=== PATIENT | female | born 1930 | race Caucasian/White ===

== ENCOUNTER 2017-10-20 12:54 | Outpatient (CLI) | payer MEDICARE | END 2017-10-20 12:55 | disposition home or self-care (01) | LOC: BICRAD 12:54 | PROVIDERS: ATTEND Internal Medicine | DX: T17.910A Gastric contents in respiratory tract, part unspecified causing asphyxiation, initial encounter (principal); J98.4 Other disorders of lung | CPT/HCPCS: 71020 ==

== ENCOUNTER 2017-10-30 09:09 | Outpatient (CLI) | payer MEDICARE ==
--- NOTE | 2017-10-30 14:21 | CT ---
CT ABDOMEN AND PELVIS WITH ORAL AND IV CONTRAST: HISTORY: Malignant neoplasm of the transverse colon. FINDINGS: There is a 1.4 cm low density lesion at the anterolateral aspect of the spleen. A calcified granulom a is also seen in the spleen. The liver, pancreas, adrenal glands, and kidneys are unremarkable. Th e patient is post cholecystectomy and hysterectomy. No free air, free fluid, or lymphadenopathy is seen in the abdomen or pelvis. No periaortic lymphade nopathy is seen. There are vascular calcifications without evidence of aneurysmal dilatation of the abdominal aorta. There are degenerative changes in the spine. The small bowel loops are not abnormally dilated. There is sigmoid diverticulosis. There is a mass in the hepatic flexure. Prominent lymph nodes, measuring up to 1 cm, are seen medial to the hepatic flexure. A small hiatal hernia is present. IMPRESSION: 1. Findings suspicious for malignancy in the hepatic flexure of the colon with adjacent lymphadenopa thy. 2. Sigmoid diverticulosis. 3. Small hiatal hernia. 4. A 1.4 cm low density lesion in the spleen. POS: [facility]
== END 2017-10-30 09:10 | disposition home or self-care (01) ==
LOC: CT 09:09
PROVIDERS: ATTEND Specialist
DX: C18.4 Malignant neoplasm of transverse colon (principal); R59.0 Localized enlarged lymph nodes; K44.9 Diaphragmatic hernia without obstruction or gangrene; K57.30 Diverticulosis of large intestine without perforation or abscess without bleeding; D73.89 Other diseases of spleen
CPT/HCPCS: 74177

== ENCOUNTER 2017-11-10 09:18 | Inpatient (IN) | payer MEDICARE ==
[2017-11-10] MEDS ORDERED: Fentanyl 100 MCG/2 ML VIAL ONE ×2 (09:53→10:24)
[2017-11-10] MEDS ORDERED: Dexamethasone 4 mg/ml Vial ONE (09:53)
[2017-11-10] MEDS ORDERED: Midazolam HCl 2 mg/2 ml Vial ONE (09:53)
[2017-11-10] MEDS ORDERED: Albumin 5% 500 ML ONE (10:24)
[2017-11-10] MEDS ORDERED: Ketamine 50 MG/ML VIAL ONE (10:24)
[2017-11-10] MEDS ORDERED: Phenylephrine 10 MG/NS 250 ML 0 ML ONE (10:24)
[2017-11-10] MEDS ORDERED: Propofol 500 MG/50 ML VIAL ONE (10:25)
[2017-11-10] MEDS ORDERED: Propofol 1,000 MG/100 ML VIAL IV ONE (10:25)
[2017-11-10] MEDS ORDERED: CEFAZOLIN/Water 2 GM/20 ML SYRINGE ONE (10:32)
[2017-11-10] MEDS ORDERED: Ketorolac Tromethamine 30 MG/ML VIAL ONE (10:32)
[2017-11-10 10:36] LABS: Hemoglobin A1c 4.7 % (4.0-6.0)
[2017-11-10 10:42] LABS: Anion Gap 16 mmol/L (10-20); BUN (Urea Nitrogen) 23 mg/dL (9.8-20.1); Calc. Creatinine Clearance 43 mL/min (70-130); Calcium 9.7 mg/dL (7.8-10.44); Carbon Dioxide 23 mmol/L (23-31); Chloride 106 mmol/L (98-107); Estimated GFR-MDRD 41; Glucose 91 mg/dL (83-110); Potassium 4.1 mmol/L (3.5-5.1); Sodium 141 mmol/L (136-145)
[2017-11-10 10:48] LABS: Anisocytosis MODERATE=16-30 cells (100X) (0-5/hpf); Hypochromia MODERATE=16-30 cells (100X) (0-5/hpf); MDiff Complete? YES; Polychromasia SLIGHT = 2-3 cells (100X) (0-2/hpf)
[2017-11-10 10:49] LABS: #Eosinphils 0.3 thou/uL (0.0-0.7); #Lymphocytes 2.1 thou/uL (1.20-3.40); #Monocytes 0.6 thou/uL (0.11-0.59); %Basophils 0.6 % (0.0-1.0); %Eosinophils 5.4 % (0.0-10.0); %Lymphocytes 34.4 % (21.0-51.0); %Monocytes 10.2 % (0.0-10.0); %Neutrophils 49.4 % (42.0-75.0); Hemoglobin 9.2 g/dL (12.0-16.0); Mean Corpuscular HGB CONC 30.2 g/dL (32.0-36.0); Mean Corpuscular Hemoglobin 25.8 pg (27.0-31.0); Mean Corpuscular Volume 85.3 fl (81.0-99.0); Mean Platelet Volume 7.9 fL (7.4-10.4); Platelet Count 424 thou/uL (130-400); RBC Distribution Width 23.2 % (11.5-14.5); Red Blood Cell (RBC) Count 3.56 mill/uL (4.20-5.40); White Blood Cell (WBC) Count 6.1 thou/uL (4.8-10.8)
[2017-11-10] MEDS ORDERED: Lidocaine 1% w/Epinephrine 1:200K 30 ML VIAL ONE (10:51)
--- NOTE | 2017-11-10 11:12 | RAD ---
PA AND LATERAL CHEST: Indication: Pre-operative examination. Comparison: None. FINDINGS: Lungs are clear. Cardiomediastinal silhouette is within normal limits. There are cholecystectomy clip s within the right upper quadrant. There is multilevel spondylosis of the thoracic spine. There are m ild vascular calcifications involving a tortuous aorta. IMPRESSION: No acute cardiopulmonary process. POS: [facility]
[2017-11-10] MEDS ORDERED: Ondansetron HCl/PF 4 MG/2 ML Vial IVP PRN (12:30)
[2017-11-10] MEDS ORDERED: Promethazine HCl 25 MG/ML VIAL SLOW IVP PRN (12:30)
[2017-11-10] MEDS ORDERED: Promethazine HCl 25 MG/ML VIAL IM PRN (12:30)
[2017-11-10] MEDS ORDERED: D5 1/2 NS w/20 mEq KCL 1,000 ML ONE (13:53)
--- NOTE | 2017-11-10 14:20 | OP ---
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 OPERATION PERFORMED: Hand-assisted laparoscopic extended right hemicolectomy. SURGEON: Alton Childress M.D. ANESTHESIA: General endotracheal per Allen Aquino CRNA. INDICATIONS: The patient is an 87-year-old white female. Recent diagnosis of anemia prompted endosc opy which revealed a fungating near obstructing mass at the hepatic flexure and the proximal transver se colon. Preoperative CEA level is elevated at 25. CT scan documents a bulky tumor at the hepatic flexure with evidence of spread to surrounding mesenteric lymph nodes. There is no evidence of dista nce metastatic spread. She was taken to the operating room at this time for colectomy. DESCRIPTION OF OPERATION: Informed consent was obtained. The patient was taken to the operating vanessa m where general endotracheal anesthesia was obtained with the patient in supine position. Abdomen wa s prepped with ChloraPrep and draped in sterile fashion. Luu catheter was placed before prepping. Anesthesia had also placed a tap block in the day stay area. Using 1% lidocaine with epinephrine, local anesthetic was infiltrated and 5 mm left upper quadrant in cision was created through which a Veress needle was passed into the peritoneal cavity and pneumoperi toneum established using carbon dioxide up to a pressure of 15 mmHg. A 5 mm trocar port was passed t hrough this same incision. Laparoscopic camera was passed through this port. Under direct vision, a second 5 mm left lower quadrant port was placed. Using these ports, I identified the areas of malig jaja at the hepatic flexure and selected an appropriate extraction site in the right upper quadrant. An oblique 8 cm right upper quadrant incision was created and dissection was carried through skin a nd subcutaneous tissue. Muscle splitting was used to gain access into the abdominal cavity. GelPort was assembled over the Bob wound retractor. The operation was continued using hand assistance. I initially tented the cecum and identified the ileocolic vessels. These were dissected and divided carefully using LigaSure. Retroperitoneal dissection was carried out laterally to the lateral abdomi nal wall. Dissection was then carried superiorly. I selected an area of approximately the mid trans verse colon. It was at least 10 cm distal to the identified malignancy. The omentum was dissected o ff of the transverse colon along the distal colon to enhance mobilization. The omentum was then divi ded about 10 cm from the hepatic flexure. The lateral attachments of the colon were then incised with a LigaSure thus fully mobilizing the righ t colon. I then turned my attention to the hepatic flexure which was meticulously mobilized as well. The dissection was then carried through the mesentery up to the section of the transverse colon. T here was noted to be some enlarged and firm malignant appearing lymph nodes and these were incorporat ed in the area that was resected, attempted to gain wide margins. The right colon was then externalized through the Bob wound retractor. A double stapled anastomos is was created with the JORDON-75 stapler. After the stapler was fired the second time, the stapler as well as the area was toweled off with as well as gloves were all passed off the field. Gloves were c hanged. Cautery and dissection were changed. The anastomosis was buttressed with interrupted sutures of 3-0 silk. The defect was not closed. The bowel was dropped back down into the abdominal cavity. Laparoscopy was instituted again. Right upp er quadrant was irrigated and all irrigant was aspirated. There was no evidence of any intraabdomina l bleeding. By palpation, there was no evidence of any residual palpable lymphadenopathy. The anast omosis was widely patent and fully viable. All irrigant was aspirated. Ports and instruments were r emoved and pneumoperitoneum was evacuated. At this point, the abdomen was thoroughly cleansed. All laparoscopic instrumentation was passed off the field. Sterile towels were placed around the operative site and gowns and gloves were changed. Using all new instrumentation, the fascia in the right upper quadrant incision was closed in two laye rs using running suture of #1 PDS. The wound was irrigated with 2 liters of warm saline. The remain chris of the wound was closed in layers with 3-0 and 4-0 Monocryl. The laparoscopic ports sites were c losed with 4-0 Monocryl. Dermabond was placed externally. There were no complications. Blood loss was minimal. The patient tolerated the procedure well and was taken to recovery in stable condition. Of note, there was no visible or palpable disease anywhere within the abdomen except that which was r esected. There was no palpable liver abnormality. There was a large easily visible and palpable mal ignancy at the hepatic flexure as well as multiple and large lymph nodes, all of which were resected.
[2017-11-10] MEDS ORDERED: hydrALAZINE 20 MG/ML VIAL SLOW IVP PRN (15:01)
[2017-11-10] MEDS ORDERED: Morphine 4 MG/ML VIAL SLOW IVP PRN ×2 (15:01)
[2017-11-10] MEDS ORDERED: Ketorolac Tromethamine 30 MG/ML VIAL IVP SCH (16:00)
[2017-11-10] MEDS ORDERED: Acetaminophen 1,000 MG in Premix Bag 1 BAG IVPB SCH (16:00)
[2017-11-10] MEDS ORDERED: Bupivacaine HCl 0.5%/Epinephrine 1:200,000/PF 30 ml Vial ONE (16:40)
[2017-11-10] MEDS ORDERED: Dexamethasone 20 MG/5 ML VIAL ONE (17:14)
[2017-11-10] MEDS ORDERED: PHENYLEPHRINE-NS 100 MCG/ML 10 ML SYRINGE ONE (17:14)
[2017-11-10] MEDS ORDERED: Propofol 200 MG/20 ML VIAL ONE (17:14)
[2017-11-10] MEDS ORDERED: Ondansetron HCl/PF 4 MG/2 ML Vial ONE (17:14)
[2017-11-10] MEDS ORDERED: Glycopyrrolate 0.2 MG/ML 5 ML SYRINGE ONE (17:14)
[2017-11-10] MEDS: Acetaminophen 1,000 MG in Premix Bag 1 BAG IVPB SCH (21:23)
[2017-11-10] MEDS: Enoxaparin Sodium 40 MG/0.4 ML SYRINGE SC SCH (21:23)
[2017-11-10] MEDS: Famotidine/PF 20 mg/2ml Vial SLOW IVP SCH (21:23)
[2017-11-10] MEDS: Ketorolac Tromethamine 30 MG/ML VIAL IVP SCH (21:24)
[2017-11-10] MEDS: D5 1/2 NS w/20 mEq KCL 1,000 ML IV SCH (21:25)
[2017-11-10] MEDS: Famotidine 20 MG TAB PO SCH (21:25)
[2017-11-11] MEDS: Acetaminophen 1,000 MG in Premix Bag 1 BAG IVPB SCH ×3 (03:55→15:25)
[2017-11-11] MEDS: Ketorolac Tromethamine 30 MG/ML VIAL IVP SCH ×4 (03:55→21:40)
[2017-11-11] MEDS: D5 1/2 NS w/20 mEq KCL 1,000 ML IV SCH ×2 (06:30→15:27)
[2017-11-11 07:18] LABS: Anion Gap 11 mmol/L (10-20); BUN (Urea Nitrogen) 15 mg/dL (9.8-20.1); Calc. Creatinine Clearance 48 mL/min (70-130); Carbon Dioxide 23 mmol/L (23-31); Chloride 107 mmol/L (98-107); Estimated GFR-MDRD 47; Glucose 142 mg/dL (83-110); Potassium 4.6 mmol/L (3.5-5.1); Sodium 136 mmol/L (136-145)
[2017-11-11 08:08] LABS: #Lymphocytes 1.1 thou/uL (1.20-3.40); #Monocytes 0.7 thou/uL (0.11-0.59); #Neutrophils 8.4 thou/uL (1.40-6.50); %Eosinophils 0.1 % (0.0-10.0); %Lymphocytes 10.5 % (21.0-51.0); %Monocytes 7.2 % (0.0-10.0); %Neutrophils 82.2 % (42.0-75.0); Hemoglobin 8.1 g/dL (12.0-16.0); Hypochromia SLIGHT = 6-15 cells (100X) (0-5/hpf); MDiff Complete? YES; Mean Corpuscular HGB CONC 30.1 g/dL (32.0-36.0); Mean Corpuscular Volume 86.5 fl (81.0-99.0); Mean Platelet Volume 8.2 fL (7.4-10.4); Ovalocytes SLIGHT = 2-5 cells (100X) (0-1/hpf); Platelet Count 341 thou/uL (130-400); Polychromasia SLIGHT = 2-3 cells (100X) (0-2/hpf); RBC Distribution Width 22.7 % (11.5-14.5); Red Blood Cell (RBC) Count 3.11 mill/uL (4.20-5.40); White Blood Cell (WBC) Count 10.2 thou/uL (4.8-10.8)
[2017-11-11] MEDS: Famotidine/PF 20 mg/2ml Vial SLOW IVP SCH ×2 (08:56→21:40)
[2017-11-11] MEDS: Famotidine 20 MG TAB PO SCH ×2 (09:03→21:39)
--- NOTE | 2017-11-11 11:29 | PRG ---
DATE OF SERVICE: 11/11/2017 SUBJECTIVE: Ms. Chou is postoperative day #1 following laparoscopic extended right hemicolectomy. She has no significant complaints. She notes minimal discomfort. She denies nausea or vomiting. S he has tolerated ice chips very well yesterday. She has had her Luu catheter removed and has alrea dy voided today. She unfortunately has not been ambulating on the floor yet. She denies significant pain. PHYSICAL EXAMINATION: VITAL SIGNS: She is afebrile, pulse is between 62 and 92, and blood pressure is 149/71. LUNGS: Clear to auscultation. CARDIAC: Regular rate and rhythm. ABDOMEN: Soft, nontender, nondistended with normoactive bowel sounds. Incisions are clean and dry. LABORATORY STUDIES: Her hemoglobin level this morning is 8.1 down from 9.2 yesterday. White blood c ell count is 10.2. Basic metabolic panel is entirely normal. ASSESSMENT: The patient is doing well following laparoscopic colon resection. We will advance to cl ear liquids at this time and increase her activity. She had excellent urine output of 1900 mL overni ght. I would anticipate advancing her to full liquids tomorrow, probably discharging home at that ti me.
[2017-11-11] MEDS ORDERED: HYDROcodone/Acetaminophen 7.5/325 mg Tablet PO PRN (11:43)
[2017-11-11] MEDS: HYDROcodone/Acetaminophen 7.5/325 mg Tablet PO PRN (13:00)
[2017-11-11] MEDS ORDERED: Zolpidem Tartrate 5 MG TAB PO PRN (16:50)
[2017-11-11] MEDS: Enoxaparin Sodium 40 MG/0.4 ML SYRINGE SC SCH (21:39)
[2017-11-11] MEDS: Mirtazapine 30 MG TAB PO SCH (21:41)
[2017-11-12] MEDS: HYDROcodone/Acetaminophen 7.5/325 mg Tablet PO PRN (00:15)
[2017-11-12] MEDS: Ketorolac Tromethamine 30 MG/ML VIAL IVP SCH ×5 (03:40→20:38)
[2017-11-12] MEDS: D5 1/2 NS w/20 mEq KCL 1,000 ML IV SCH ×2 (05:40→21:01)
[2017-11-12 06:31] LABS: #Eosinphils 0.1 thou/uL (0.0-0.7); #Lymphocytes 2.6 thou/uL (1.20-3.40); #Monocytes 0.5 thou/uL (0.11-0.59); #Neutrophils 5.8 thou/uL (1.40-6.50); %Basophils 0.4 % (0.0-1.0); %Eosinophils 0.9 % (0.0-10.0); %Lymphocytes 28.9 % (21.0-51.0); %Monocytes 5.6 % (0.0-10.0); %Neutrophils 64.2 % (42.0-75.0); Band 8 % (5-11); Hypochromia SLIGHT = 6-15 cells (100X) (0-5/hpf); Lymphocytes 29 % (21-51); MDiff Complete? YES; Mean Corpuscular HGB CONC 30.4 g/dL (32.0-36.0); Mean Corpuscular Hemoglobin 26.5 pg (27.0-31.0); Mean Corpuscular Volume 87.1 fl (81.0-99.0); Mean Platelet Volume 8.3 fL (7.4-10.4); Monocytes 9 % (0-10); Neutrophil 54 % (42-75); Platelet Count 384 thou/uL (130-400); RBC Distribution Width 22.5 % (11.5-14.5)
[2017-11-12] MEDS: Famotidine/PF 20 mg/2ml Vial SLOW IVP SCH ×2 (09:22→20:43)
[2017-11-12] MEDS: Famotidine 20 MG TAB PO SCH ×2 (09:22→20:43)
[2017-11-12] MEDS: Amlodipine 5 MG TAB PO SCH (09:22)
[2017-11-12] MEDS: Fenofibrate Nanocrystallized 145 MG TAB PO SCH (09:23)
[2017-11-12] MEDS: Acetaminophen 500 MG TAB PO PRN (20:39)
[2017-11-12] MEDS: Enoxaparin Sodium 40 MG/0.4 ML SYRINGE SC SCH (20:42)
[2017-11-12] MEDS: Mirtazapine 30 MG TAB PO SCH (20:44)
[2017-11-13] MEDS: Ketorolac Tromethamine 30 MG/ML VIAL IVP SCH ×3 (02:46→15:23)
[2017-11-13] MEDS: Amlodipine 5 MG TAB PO SCH (09:18)
[2017-11-13] MEDS: Fenofibrate Nanocrystallized 145 MG TAB PO SCH (09:18)
[2017-11-13] MEDS: Famotidine/PF 20 mg/2ml Vial SLOW IVP SCH ×2 (09:18→22:48)
[2017-11-13] MEDS: Famotidine 20 MG TAB PO SCH ×2 (09:19→22:47)
[2017-11-13] MEDS: Ondansetron HCl/PF 4 MG/2 ML Vial IVP PRN ×2 (10:38→15:23)
[2017-11-13] MEDS: D5 1/2 NS w/20 mEq KCL 1,000 ML IV SCH ×2 (11:18→11:51)
[2017-11-13] MEDS: Acetaminophen 500 MG TAB PO PRN (11:51)
[2017-11-13] MEDS: Promethazine HCl 25 MG/ML VIAL IM PRN ×2 (12:13→20:05)
[2017-11-13 14:27] LABS: Hemoglobin 10.3 g/dL (12.0-16.0); Mean Corpuscular HGB CONC 29.8 g/dL (32.0-36.0); Mean Corpuscular Volume 90.6 fl (81.0-99.0); Mean Platelet Volume 8.5 fL (7.4-10.4); Platelet Count 357 thou/uL (130-400); RBC Distribution Width 22.9 % (11.5-14.5); Red Blood Cell (RBC) Count 3.83 mill/uL (4.20-5.40)
[2017-11-13 14:41] LABS: Anion Gap 15 mmol/L (10-20); BUN (Urea Nitrogen) 29 mg/dL (9.8-20.1); Calc. Creatinine Clearance 14 mL/min (70-130); Carbon Dioxide 19 mmol/L (23-31); Chloride 103 mmol/L (98-107); Estimated GFR-MDRD 11; Glucose 86 mg/dL (83-110); Magnesium 1.4 mg/dL (1.6-2.6); Phosphorus 4.8 mg/dL (2.3-4.7); Potassium 6.4 mmol/L (3.5-5.1); Sodium 131 mmol/L (136-145)
[2017-11-13 14:45] LABS: Anisocytosis MODERATE=16-30 cells (100X) (0-5/hpf); Band 48 % (5-11); Eosinophils 1 % (0-10); Lymphocytes 15 % (21-51); MDiff Complete? YES; Metamyelocyte 10 % (0-0); Monocytes 3 % (0-10); Neutrophil 23 % (42-75); Ovalocytes SLIGHT = 2-5 cells (100X) (0-1/hpf); PLT Morphology Comment Appears Adequate; Polychromasia SLIGHT = 2-3 cells (100X) (0-2/hpf); Target Cells SLIGHT = 2-5 cells (100X) (0-1/hpf); Vacuoles SLIGHT
[2017-11-13 14:51] LABS: CKMB 2.9 ng/mL (0-6.6); Troponin I 0.018 ng/mL (< 0.028)
[2017-11-13] MEDS ORDERED: PHENYLEPHRINE-NS 100 MCG/ML 10 ML SYRINGE ONE (17:07)
[2017-11-13] MEDS ORDERED: Propofol 200 MG/20 ML VIAL ONE (17:07)
[2017-11-13] MEDS ORDERED: Esmolol 100 MG/10 ML VIAL ONE (17:07)
[2017-11-13 17:32] LABS: Anion Gap 17 mmol/L (10-20); BUN (Urea Nitrogen) 30 mg/dL (9.8-20.1); Calc. Creatinine Clearance 14 mL/min (70-130); Calcium 9.3 mg/dL (7.8-10.44); Carbon Dioxide 18 mmol/L (23-31); Chloride 103 mmol/L (98-107); Estimated GFR-MDRD 11; Glucose 80 mg/dL (83-110); Potassium 6.1 mmol/L (3.5-5.1); Sodium 132 mmol/L (136-145)
[2017-11-13 17:59] LABS: Free T4 (Free Thyroxine) 0.92 ng/dL (0.70-1.48); Thyroid Stimulating Hormone 4.4016 uIU/mL (0.35-4.94)
[2017-11-13] MEDS ORDERED: Sodium Chloride 0.9% 1,000 ML IV SCH (18:00)
--- NOTE | 2017-11-13 18:21 | PDOC.EVN ---
Event Note - Event Note Event Note: rpt BMP creat 3.9, K 6.. have consulted Dr Pressley, started iv saline bolus, DCed K in iv, ordered kayexcelate enema, sent UA, ordered noncontrast CT of abd.
[2017-11-13 18:35] LABS: Bilirubin Negative (Negative); Blood, Urine Negative (Negative); Clarity CLOUDY (Clear); Glucose, Urine (Dipstick) Negative (Negative); Leukocyte Negative (Negative); Nitrite Negative (Negative); Protein, Urine (Dipstick) Negative (Neg-Trace); Specific Gravity, Urine 1.017 (1.002-1.036); Urobilinogen 0.2 mg/dL (0.2-1.0)
--- NOTE | 2017-11-13 19:34 | DIS ---
PRIMARY CARE PROVIDER: Nia Avery D.O. CONSULTING PHYSICIAN: Dahiana Mak M.D., General Surgery HOSPITAL COURSE: Patient is 3 days postop laparoscopic transverse colon or hand-assisted laparoscopi c extended right hemicolectomy by Dr. Alton Childress. The patient was found to have anemia prior to this, endoscopy revealed a fungating to near obstructing mass at the hepatic flexure. Postoperative ly, she has had some pain and some nausea and vomiting. Today, she was found to have an irregular pu lse and transferred to telemetry. Cardiology, Dr. Madrigal and La, myself have been consulted. The patient has no history of heart disease, no history of lung disease. She has hypertension, choleste rol issues and osteoporosis. She takes Zetia 10 mg a day, and amlodipine 5 mg a day. ALLERGIES: She has no medical allergies. PAST SURGICAL HISTORY: Includes abdominal hysterectomy, cholecystectomy, and cataract surgery. FAMILY HISTORY: Her father is , of some form of cancer. Mother is , had malign ant hyperthermia. She had been 71 years. FULL CODE status. is surrogate decision dick romero. SOCIAL HISTORY: No tobacco, no alcohol. REVIEW OF SYSTEMS: Constitutional: No headaches, dizziness, fainting. Eyes: No double vision, blurred vision, flashin g lights. ENT: No ear pain or drainage. No nasal bleeding. No trouble swallowing. Cardiac: No c hest pain, orthopnea or paroxysmal nocturnal dyspnea. Respiration: No cough, wheezing or asthma. G astrointestinal: See present illness. No blood per rectum, no melena, no diarrhea. Genitourinary: No hematuria or dysuria. Musculoskeletal: No pain or swelling in her legs or arms. Neurological: No history of strokes, seizures. Psychiatric: No anxiety or depression. Skin: She states she bru ises easily on her arms. Heme/Lymph: No tender or swollen lymph nodes, petechial hemorrhages. PHYSICAL EXAMINATION: GENERAL: She is an alert, pleasant lady. VITAL SIGNS: Blood pressure today ranging 97/62 to 113/70, pulse ox is 92, respirations 20, pulse is 84 and irregular, temperature is 98.2-97.3. HEENT: Pupils equal and round with implants. Extraocular movements are intact. Sclerae white. Halie th is dry. Dental hygiene is good. NECK: Supple. No jugular venous distention, adenopathy or thyromegaly. CHEST: Clear to auscultation and percussion. HEART: Irregular rate and rhythm. There are no appreciated murmurs or gallops. ABDOMEN: Soft to gentle palpation. Bowel sounds were present. There was no distention. Because of her surgery, palpation was done quite gently. EXTREMITIES: Reveal no cyanosis, clubbing or edema. PULSES: Carotid, radial, femoral, and dorsalis pedis pulses intact, symmetric. SKIN: Warm and dry with some minor ecchymoses on her arm with actinic changes on her skin. HEME/LYMPH: No tender or swollen lymph nodes in axilla, inguinal or cervical area. NEUROLOGICAL: Cranial nerves II-XII are intact. Moves all extremities. Sensation intact. Reflexes symmetric. Chest x-ray done 11/10/2017 reveals no cardiomegaly, CHF or infiltrate, reviewed by me. LABORATORY DATA AND DIAGNOSTICS: EKG, rhythm is irregular. On careful examination, it appears to be sinus rhythm with PACs, reviewed by me. Laboratory is interesting. Initial basic metabolic profile done on 11/11 is normal, done today. Sodium 131, potassium 6.4, chloride 19, BUN 29, creatinine 3.7 9, blood sugar 86. BNP 763. Cardiac enzymes normal. CBC: Initial white count 6.1 on 11/10. Today 5.0 on 11/13. Initial hemoglobin 9.2, hemoglobin today is 10.3. Platelet count 424,000 initially, 357,000 today. ADMITTING DIAGNOSES: 1. Arrhythmia, most likely sinus rhythm with premature atrial contractions. 2. Postop laparoscopic colon cancer surgery. 3. Acute renal failure. 4. Hyperkalemia. 5. Hypertension. 6. Anemia, slow blood loss. 7. Elevated cholesterol. PLAN: 1. Stat repeat basic metabolic profile, recommendations to follow. 2. Echocardiogram. 3. Thyroid function studies. 4. Beta lex for PVCs after obtaining stat basic metabolic profile.
--- NOTE | 2017-11-13 19:56 | RAD ---
PORTABLE CHEST ONE VIEW 11/13/17 at 7:43 p.m. HISTORY: Shortness of breath. FINDINGS/IMPRESSION: The heart size is normal. There is free air under the diaphragm. No pneumothoraces, focal areas of co nsolidation or pleural effusions are seen. There are degenerative changes in the spine. Report was called over the telephone to Dr. Dinero at 7:01 p.m. He told me that this patient had recen t laparoscopic surgery. Code CR POS: [facility]
--- NOTE | 2017-11-13 20:19 | CT ---
CT ABDOMEN AND PELVIS WITHOUT CONTRAST 11/13/17 HISTORY: Acute renal failure post hemicolectomy. Lower abdominal pain and vomiting. FINDINGS: Absence of oral and IV contrast reduces the sensitivity of exam, particularly for evaluation of solid organs and bowel. Small left and moderate right pleural effusions are seen. There is free air and free fluid in the abd omen and pelvis. There is intraperitoneal and right retroperitoneal free air. Free air is also seen i n Mike's pouch. Air in the right retroperitoneum is between the liver and the spine/right hemidia phragm extending anterior to the right kidney. There is air in the subcutaneous fat of the anterior a bdominal wall likely from recent intervention as well. The patient is post cholecystectomy, hysterectomy, and hemicolectomy. There is sigmoid diverticulosis . Vascular calcifications are present without evidence of aneurysmal dilatation of the abdominal aort a. There are degenerative changes in the spine. No calculus seen in the kidneys, ureters, or the urin zbigniew bladder. A Luu catheter is present in the urinary bladder. No hydroureteronephrosis is seen. Th ere are calcified granulomas in the spleen. A small hiatal hernia is present. IMPRESSION: 1. Bilateral pleural effusions, right larger than left. 2. Free air and free fluid in the abdomen and pelvis. 3. Sigmoid diverticulosis. 4. Small hiatal hernia. Report was called over the telephone to Dr. Reed Dinero at 7:04 p.m. POS: [facility]
[2017-11-13] MEDS ORDERED: Sodium Bicarb 50 MEQ/50 ML VIAL ONE (20:20)
[2017-11-13] MEDS ORDERED: Dextrose 50% Abboject 50 ML SYRINGE ONE (20:21)
[2017-11-13] MEDS ORDERED: Insulin Regular 300 UNITS/3 ML VIAL ONE (20:21)
--- NOTE | 2017-11-13 20:23 | CON ---
DATE OF CONSULTATION: 11/13/2017 REASON FOR CONSULTATION: Arrhythmia. HISTORY OF PRESENT ILLNESS: Ms. Chou is an 87-year-old white female who comes to the hospital for planned colectomy for colon cancer. She had this performed on the . She did well one day postope ratively. Today, she was noted that her heart rate was irregular and a little fast, so she was trans ferred to telemetry and Cardiology has been consulted for this. On my evaluation, her only complaint is abdominal pain from the surgery. No other issues. Denies any chest pain, tightness, pressure. No shortness of breath, no lightheadedness, no syncope. PAST MEDICAL HISTORY: 1. Anxiety and depression. 2. Colon cancer as above. 3. Chronic pain. 4. Gastroesophageal reflux disease. 5. Hypertension. OUTPATIENT MEDICATIONS: Include, 1. [place] p.r.n. 2. Zoloft. 3. Pantoprazole. 4. Mirtazapine. 5. Fluconazole. 6. Fenofibrate. 7. Amlodipine 5 mg a day. 8. Neomycin. 9. base. ALLERGIES: No known drug allergies. SOCIAL HISTORY: No alcohol or drugs. FAMILY HISTORY: Noncontributory. REVIEW OF SYSTEMS: A 10-point review of systems was done and is all negative unless stated in the hi story of present illness. PAST SURGICAL HISTORY: 1. Laparoscopic cholecystectomy in the past. 2. Cataract surgery. 3. Hysterectomy. 4. Colonoscopy in the past. 5. Laparoscopic colectomy as well. PHYSICAL EXAMINATION: VITAL SIGNS: Temperature 98.2, pulse 84, respiration rate 20, satting 92% on 2 liters, blood pressur e 109/51. GENERAL: Awake, alert, and oriented x3. NECK: Supple. LUNGS: Clear. CARDIOVASCULAR: S1, S2, no S3 or S4. Irregular. ABDOMEN: Has reduced bowel sounds. Nontender to palpation, no rebound or guarding. EXTREMITIES: No edema. SKIN: Warm and dry. LABORATORY WORK: Reviewed. White count of 5, hemoglobin of 10.3, hematocrit of 34, platelet count o f 357. Chemistries significantly changed with a sodium of 132, potassium of 6.1, chloride of 103, ca rbon dioxide of 18, anion gap of 17, BUN of 30, creatinine 3.79 up to 3.90 later today, magnesium was 1.4. BNP was 778. TSH is normal with free T4 of 0.9. Free T3 is undetectable. Telemetry was reviewed. It shows sinus rhythm with several PACs in bigeminy at times. EKG is [facility] normal sinus rhythm with several PACs in bigeminy. She does also have small runs of supraventricular tachycardia that lasts about 10 beats at a time, re ally nonsustained and asymptomatic. ASSESSMENT AND PLAN: 1. Several premature atrial contractions. 2. Nonsustained supraventricular tachycardia. 3. Acute kidney injury, likely acute tubular necrosis. She seems to be dry in my opinion. I do not think the BNP is indicative of her fluid status. She has been oliguric to anuric in the last few da ys as well. I agree with Nephrology consultation. PLAN: 1. For her PACs and nonsustained SVT, we will plan on starting a beta lex, but at this time, I w ill hold off. We will wait for her kidneys to get better. Her blood pressure is somewhat borderline at this time. These PACs are not life threatening and the SVT is nonsustained. So she should be fi ne just correcting the electrolyte abnormalities and metabolic derangements and I would expect her he art rhythm to get more stable. If it does not, at that point, we will start beta lex, but she wi ll have to be more stable. 2. Insert Luu catheter to make sure she is not obstructed. Thank you for letting us to participate in the care of your patient. We will follow.
[2017-11-13] MEDS ORDERED: Calcium Chloride 1 GM/10 ML Abboject SYRINGE ONE (20:33)
[2017-11-13] MEDS ORDERED: Benzocaine 20% Spray 60 ML CAN FS SCH (20:45)
[2017-11-13] MEDS ORDERED: Insulin Regular 300 UNITS/3 ML VIAL IVP SCH (20:45)
[2017-11-13] MEDS ORDERED: Lidocaine 2% Jelly 5 ML TUBE TOP SCH (20:45)
[2017-11-13] MEDS ORDERED: Sodium Bicarb 50 MEQ/50 ML Abboject 8.4% SYRINGE IVP SCH (20:45)
[2017-11-13] MEDS ORDERED: Dextrose 50% Abboject 50 ML SYRINGE SLOW IVP SCH (20:45)
[2017-11-13] MEDS ORDERED: Bupivacaine/Epinephrine 0.25% 30 ML VIAL ONE (20:46)
[2017-11-13] MEDS ORDERED: Heparin 5,000 UNITS/ML VIAL ONE (20:46)
[2017-11-13] MEDS ORDERED: Sodium Chloride 0.9% 30 ML ONE (20:46)
[2017-11-13] MEDS ORDERED: Lidocaine 2% w/Epinephrine 1:200K 20 ML VIAL ONE (20:46)
[2017-11-13] MEDS ORDERED: Ketamine 50 MG/ML VIAL ONE (20:47)
[2017-11-13] MEDS ORDERED: Midazolam HCl 2 mg/2 ml Vial ONE (20:47)
[2017-11-13] MEDS ORDERED: metroNIDAZOLE 500 MG/100 ML BAG ONE (20:48)
[2017-11-13] MEDS ORDERED: Fentanyl 100 MCG/2 ML VIAL ONE (20:48)
[2017-11-13] MEDS ORDERED: Heparin 10,000 UNITS/1 ML VIAL ONE (21:01)
[2017-11-13] MEDS ORDERED: Calcium Chloride 13.6 MEQ in Sodium Chloride 0.9% 100 ML IVPB SCH (21:15)
--- NOTE | 2017-11-13 21:26 | PDOC.EVN ---
Event Note - Event Note Event Note: Tachycardia earlier today, looked like AFib so ordered electrolytes, cardiac enzymes and transferred patient to Telemetry. Hospitalist and Cardiology consulted, and they both felt patient was in sinus tach with frequent PACs. Potassium was 6.4 and creatinine almost 4 so D51/2 w KCL was discontinued and IV bolus and Nephrology consult ordered. Non-contrast CT of abdomen and pelvis done which showed large amount of free air and fluid, which in my opinion is much more than would be expected from post-operative state so kayexelate order cancelled but Calcium, bicarb, glucose and insulin ordered since potassium confirmed to be high on recheck at 6.1. NG ordered but patient did not tolerate. Spoke with patient and family and explained that laparoscopy needed due to suspicion of anastomotic leak and possible ostomy or open surgery depending on findings. Discussed events and plan of care with anesthesia and nephrology. Will place trialysis catheter in case renal function worsens and post-op CCU bed requested as patient is critically ill and may not extubate postoperatively. Patient history of malignant hyperthermia also noted and discussed with Anesthesia. Antibiotics restarted.
[2017-11-13] MEDS ORDERED: cefOXitin 2 GM VIAL ONE (21:33)
[2017-11-13] MEDS ORDERED: Phenylephrine 10 MG/NS 250 ML 250 ML ONE (21:50)
[2017-11-13] MEDS ORDERED: Albumin 5% 500 ML ONE (22:04)
[2017-11-13] MEDS: Mirtazapine 30 MG TAB PO SCH (22:45)
[2017-11-13] MEDS: Enoxaparin Sodium 40 MG/0.4 ML SYRINGE SC SCH (22:46)
[2017-11-13] MEDS: Sodium Chloride 0.9% 1,000 ML IV SCH (22:49)
[2017-11-13] MEDS ORDERED: Diprivan 20 ML ONE (23:01)
[2017-11-14] MEDS ORDERED: Midazolam HCl 2 mg/2 ml Vial ONE (00:36)
[2017-11-14] MEDS ORDERED: Ventilator Sedation Protocol 1 EACH FS SCH (01:06)
[2017-11-14] MEDS ORDERED: Propofol 1,000 MG/100 ML VIAL IV ONE (01:12)
[2017-11-14] MEDS ORDERED: fentaNYL Citrate/PF 2,000 MCG in Sodium Chloride 0.9% 60 ML IV SCH (01:13)
[2017-11-14] MEDS ORDERED: Propofol 1,000 MG/100 ML VIAL IV PRN (01:13)
[2017-11-14] MEDS ORDERED: Lorazepam 2 MG/ML VIAL SLOW IVP PRN (01:13)
[2017-11-14] MEDS ORDERED: DISCONTINUE PREVIOUS NARCOTIC PAIN MEDICATIONS AND BENZODIAZEPINES FS SCH (01:13)
[2017-11-14 01:41] LABS: CO2 Tension 43.1 mmHg (35.0-45.0); Calcium, Ionized 1.3 mmol/L (1.12-1.30); Hematocrit-ABG 33.8 % (36.0-47.0); Hemoglobin (Hb) 9.1 g/dL (12.0-16.0); O2 Tension (PaO2) 91.6 mmHg (80.0-100.0)
[2017-11-14 01:45] LABS: Puncture Site ALINE; pH, Arterial 7.16 (7.35-7.45)
[2017-11-14] MEDS ORDERED: Sodium Chloride 0.9% 500 ML IVPB SCH ×4 (01:45→15:00)
[2017-11-14 01:46] LABS: ALV-art Gradient 210.525 (0-20)
[2017-11-14 01:53] LABS: INR-International Normal Ratio 1.4; PTT 31.5 SEC (22.9-36.1); Prothrombin Time 17.7 SEC (12.0-14.7)
[2017-11-14] MEDS ORDERED: cefOXitin 2 GM in Syringe 10 ML SLOW IVP SCH ×5 (02:00→10:00)
[2017-11-14 02:11] LABS: ALT (SGPT) 22 U/L (8-55); AST (SGOT) 47 U/L (5-34); Albumin 2.9 g/dL (3.4-4.8); Alkaline Phosphatase 57 U/L (40-150); Anion Gap 15 mmol/L (10-20); BUN (Urea Nitrogen) 30 mg/dL (9.8-20.1); Bilirubin, Total 1.2 mg/dL (0.2-1.2); Calc. Creatinine Clearance 13 mL/min (70-130); Calcium 8.8 mg/dL (7.8-10.44); Carbon Dioxide 17 mmol/L (23-31); Cardiac Risk 8.6 (Less than 4.5); Chloride 110 mmol/L (98-107); Cholesterol 77 mg/dl (< 200 Desired); Estimated GFR-MDRD 11; Globulin 2.5 g/dL (2.4-3.5); Glucose 79 mg/dL (83-110); HDL Cholesterol 9 mg/dL (>60 Neg Risk); LDL Cholesterol, Calculated 29 mg/dL; Magnesium 1.6 mg/dL (1.6-2.6); Phosphorus 5.9 mg/dL (2.3-4.7); Potassium 5.5 mmol/L (3.5-5.1); Protein, Total 5.4 g/dL (6.0-8.3); Sodium 136 mmol/L (136-145); Triglycerides 196 mg/dL (Less than 150)
[2017-11-14 02:19] LABS: Anisocytosis MODERATE=16-30 cells (100X) (0-5/hpf); Band 19 % (5-11); Eosinophils 2 % (0-10); Hemoglobin 9.4 g/dL (12.0-16.0); Hypochromia SLIGHT = 6-15 cells (100X) (0-5/hpf); Lymphocytes 20 % (21-51); MDiff Complete? YES; Mean Corpuscular HGB CONC 29.2 g/dL (32.0-36.0); Mean Corpuscular Hemoglobin 26.6 pg (27.0-31.0); Mean Platelet Volume 8.7 fL (7.4-10.4); Metamyelocyte 4 % (0-0); Monocytes 5 % (0-10); Neutrophil 49 % (42-75); PLT Morphology Comment Appears Adequate; Platelet Count 376 thou/uL (130-400); RBC Distribution Width 22.6 % (11.5-14.5); Reactive Lymphocytes 1 % (0-10); Red Blood Cell (RBC) Count 3.53 mill/uL (4.20-5.40); Schistocytes SLIGHT = 2-5 cells (100X) (0-1/hpf); White Blood Cell (WBC) Count 10.9 thou/uL (4.8-10.8)
[2017-11-14] MEDS: Sodium Chloride 0.9% 500 ML IVPB SCH ×2 (02:45→03:29)
[2017-11-14] MEDS ORDERED: Sodium Bicarb 50 MEQ/50 ML Abboject 8.4% SYRINGE IVP SCH (02:45)
[2017-11-14] MEDS: Dextrose 5% in Water 1,000 ML IV SCH ×2 (03:08→11:09)
[2017-11-14] MEDS: Dextrose 5 % And 0.9 % NaCl 1,000 ML IV SCH ×2 (03:52→14:50)
[2017-11-14 05:20] LABS: ALT (SGPT) 18 U/L (8-55); AST (SGOT) 42 U/L (5-34); Albumin 2.3 g/dL (3.4-4.8); Alkaline Phosphatase 45 U/L (40-150); Anion Gap 14 mmol/L (10-20); BUN (Urea Nitrogen) 30 mg/dL (9.8-20.1); Bilirubin, Total 1.1 mg/dL (0.2-1.2); Calc. Creatinine Clearance 14 mL/min (70-130); Carbon Dioxide 15 mmol/L (23-31); Chloride 114 mmol/L (98-107); Estimated GFR-MDRD 11; Glucose 90 mg/dL (83-110); Potassium 5.2 mmol/L (3.5-5.1); Protein, Total 4.3 g/dL (6.0-8.3); Sodium 138 mmol/L (136-145)
[2017-11-14 05:45] LABS: Anisocytosis MODERATE=16-30 cells (100X) (0-5/hpf); Band 25 % (5-11); Bite Cells SLIGHT = 2-5 cells (100X) (0-1/hpf); Eosinophils 1 % (0-10); Hemoglobin 8.8 g/dL (12.0-16.0); Hypochromia SLIGHT = 6-15 cells (100X) (0-5/hpf); Lymphocytes 11 % (21-51); MDiff Complete? YES; Mean Corpuscular HGB CONC 29.8 g/dL (32.0-36.0); Mean Corpuscular Hemoglobin 26.5 pg (27.0-31.0); Mean Platelet Volume 8.4 fL (7.4-10.4); Metamyelocyte 13 % (0-0); Monocytes 7 % (0-10); Myelocyte 1 % (0-0); Neutrophil 42 % (42-75); PLT Morphology Comment Appears Adequate; Platelet Count 271 thou/uL (130-400); RBC Distribution Width 22.2 % (11.5-14.5); Schistocytes SLIGHT = 2-5 cells (100X) (0-1/hpf); White Blood Cell (WBC) Count 4.5 thou/uL (4.8-10.8)
--- NOTE | 2017-11-14 07:13 | PDOC.PN ---
- Subjective Encounter Start Date: 11/14/17 Encounter Start Time: 07:12 -: intubated - Objective MAR Reviewed: Yes Vital Signs & Weight: Vital Signs (12 hours) Pulse BP 11/14/17 06:51 66 126/49 L 11/14/17 02:45 74 Weight Weight 180 lb I&O: 11/13/17 11/14/17 11/15/17 06:59 06:59 06:59 Intake Total 2660 Output Total 740 Balance 1920 Result Diagrams: 11/14/17 04:21 11/14/17 04:21 Additional Labs: Accuchecks 11/13/17 11/13/17 21:27 20:25 POC Glucose 129 H 62 L Radiology Reviewed by me: Yes (cxr-rotated, ET tube, hazy diaphrams) EKG Reviewed by me: Yes (CT abd, freee air, fluid) Phys Exam - Physical Examination Neck: no JVD coarse BS , rhonchi Cardiovascular: RRR, no significant murmur Gastrointestinal: soft quiet Musculoskeletal: no edema Dx/Plan (1) Post-operative state Code(s): Z98.890 - OTHER SPECIFIED POSTPROCEDURAL STATES Status: Acute (2) Hypotension Status: Acute Qualifiers: Hypotension type: other hypotension type Qualified Code(s): I95.89 - Other hypotension (3) Acute renal failure Status: Acute Qualifiers: Acute renal failure type: unspecified Qualified Code(s): N17.9 - Acute kidney failure, unspecified (4) Hyperkalemia Code(s): E87.5 - HYPERKALEMIA Status: Acute (5) Colon cancer Code(s): C18.9 - MALIGNANT NEOPLASM OF COLON, UNSPECIFIED Status: Acute Qualifiers: Colon location: hepatic flexure Qualified Code(s): C18.3 - Malignant neoplasm of hepatic flexure Comment: post op 11/10/17 (6) Acidosis, metabolic Code(s): E87.2 - ACIDOSIS Status: Acute - Plan on vent. iv fluids, iv antibx -: Renal in consult -: dicuss with surgery- no note on last pm procedure -: monitor cbc, renal fcn * .
[2017-11-14 07:27] LABS: Actual Bicarbonate (HCO3a) 14.8 mEq/L (22-26); Base Excess (BEa) -9.1 mEq/L (0 (+/-) 2.5); CO2 Tension 25.2 mmHg (35.0-45.0); Calcium, Ionized 1.2 mmol/L (1.12-1.30); Hemoglobin (Hb) 7.9 g/dL (12.0-16.0); O2 Tension (PaO2) 136.5 mmHg (80.0-100.0); pH, Arterial 7.39 (7.35-7.45)
[2017-11-14 07:28] LABS: Puncture Site ALINE
--- NOTE | 2017-11-14 08:06 | RAD ---
FRONTAL RADIOGRAPH OF CHEST: Date: 11/14/17 COMPARISON: 11/13/17. HISTORY: Intubated patient. FINDINGS: Endotracheal tube terminates at the level of the clavicular heads. Nasogastric tube extends into the upper abdomen. There is no pneumothorax seen. There is bibasilar hazy density in both lung bases, partially obscuring the hemidiaphragms. Evaluatio n of the chest is limited secondary to significant rotation to the right and kyphotic positioning. IMPRESSION: Lines and tubes as above. Limited assessment secondary to rotation and positioning. Hazy density in t he lung bases may signify infiltrate or volume loss. POS: [facility]
--- NOTE | 2017-11-14 08:37 | PDOC.CTH ---
Cardiology Progress Note - Subjective She is currently sedated and intubated. - Objective Vital Signs Pulse Resp BP 11/14/17 06:51 66 126/49 L 11/14/17 02:45 74 11/14/17 01:00 12 Weight 180 lb 11/13/17 11/14/17 11/15/17 06:59 06:59 06:59 Intake Total 2660 Output Total 740 Balance 1920 - Physical Examination General/Neuro: other: (Intubated. ) Neck: no JVD present Lungs: unlabored respirations Heart: RRR Abdomen: NT/ND Extremities: + edema B (2+) - Telemetry Telemetry Rhythm: NSR, PAC's - Labs Result Diagrams: 11/14/17 04:21 11/14/17 04:21 Troponin/CKMB CK-MB (CK-2) 2.9 ng/mL (0-6.6) 11/13/17 14:04 Troponin I 0.018 ng/mL (< 0.028) 11/13/17 14:04 - Assessment/Plan 1. Frequent PAC's improved now. 2. Acute Kidney injury, ATN likely 3. S/P colectomy 4. Anastomotic leak s/p repair. 5. Colon Ca s/p reection. PLAN: - Continue supportive care. - Echocardiogram pending today. - PAC's improved with imroved electrolytes. - Patient is severely ill and would not be unexpected.
[2017-11-14 08:59] LABS: Magnesium 1.7 mg/dL (1.6-2.6); Phosphorus 5.9 mg/dL (2.3-4.7)
[2017-11-14] MEDS ORDERED: Albumin 25% 25 GM/100 ML BOT IVPB SCH (09:07)
--- NOTE | 2017-11-14 09:20 | RAD ---
RADIOGRAPH CHEST 1 VIEW: Date: 11/14/17 Time: 0813 HOURS HISTORY: 87-year-old female in respiratory failure. COMPARISON: 11/14/17 at 0054 hours. FINDINGS: The patient is still rotated to the right. Left lateral costophrenic angle is excluded from the field of view. Endotracheal tube remains. NG tube has now been placed, with distal tip inferior to the ainsley phragm and inferior to the field of view. A central vascular catheter has been placed in the left nec k, which crosses the midline of the mediastinum, with distal tip overlying right upper mediastinum. N o pneumothorax is visible. The mild patchy nonspecific pulmonary parenchymal density at left base shaina houetting the left hemidiaphragm remains unchanged. No pulmonary edema. IMPRESSION: 1. Interval placement of nasogastric tube. 2. Interval placement of a left-sided central vascular catheter in the neck, with distal tip at the right mediastinum. 3. No evidence of pneumothorax. 4. No other interval change. JN [] POS: [facility]
[2017-11-14] MEDS: Famotidine/PF 20 mg/2ml Vial SLOW IVP SCH (10:38)
[2017-11-14] MEDS: Famotidine 20 MG TAB PO SCH (10:38)
[2017-11-14] MEDS ORDERED: Pantoprazole 40 MG VIAL IVP SCH (10:45)
[2017-11-14] MEDS: Sodium Chloride 0.9% 1,000 ML IV SCH (11:10)
--- NOTE | 2017-11-14 11:22 | CON ---
DATE OF CONSULTATION: 11/14/2017 RENAL MEDICINE HISTORY OF PRESENT ILLNESS: Ms. Chou is an 87-year-old white female who was initially admitted to the hospital for colon cancer. She underwent colectomy. During the hospital course, she did well. However, she was later noted to have an acute kidney injury. Her creatinine was noted at 3.9 initial ly. She was also noted to be mildly hyperkalemic. Her abdomen was noted to be distended and CT scan of the abdomen and pelvis showed free air and free fluid in the abdomen and pelvis. She was evaluat ed by Dr. Mak and feeling is that she may have an anastomotic leak? We are now being consulted for further evaluation of this acute kidney injury. I did review the sarah ent's medications since she has been on an NSAID during the last few days after initial surgery. REVIEW OF SYSTEMS: Not obtainable since the patient is intubated. PAST MEDICAL HISTORY: 1. Colon cancer. 2. History of depression. 3. GERD. 4. Hypertension. PAST SURGICAL HISTORY: 1. Status post colonoscopy. 2. Status post hand-assisted laparoscopic right hemicolectomy. 3. Status post hysterectomy. 4. Status post cataract surgery. SOCIAL HISTORY: Patient has no history of alcohol or drug intake, history of blood transfusions. FAMILY HISTORY: Noncontributory. ALLERGIES: None. TRAUMA: None. IMMUNIZATIONS: Up to date. HOSPITALIZATIONS: Please see past medical history. PHYSICAL EXAMINATION: VITAL SIGNS: Blood pressure is 115/62, heart rate 96, respiratory rate 29, pulse ox 100%. GENERAL: Noted to be arousable and intubated on ventilator support. SKIN: Adequate turgor. HEENT: She has slightly pale conjunctivae, anicteric sclerae. NECK: No neck mass, no carotid bruits, no JVD. CHEST: No deformities. LUNGS: Decreased breath sounds. HEART: Normal sinus rhythm. No murmur, no gallops, no rubs. ABDOMEN: Globular, soft, nontender, no masses. EXTREMITIES: No edema. MEDICATIONS: Currently on salt poor albumin 25 grams IV q.6, DuoNeb q.4, cefoxitin 2 grams IV q.12, D5 normal saline at 125 mL per hour, fentanyl drip, Ativan 2 mg IV q.4 p.r.n., Zosyn 2.25 grams IV q. 8, Diprivan drip. LABORATORY DATA: Laboratories of 11/14/2017; white count 4.5, hemoglobin 8.8. Sodium 138, potassium 5.2, chloride 114, carbon dioxide 15, BUN 30, creatinine 3.87. On 11/13/2017, BUN 30, creatinine 3.90. Urinalysis; specific gravity shows 1.017, no casts noted. Urine sodium is 26, urine creatinine is 17 3. ASSESSMENT AND PLAN: 1. Acute kidney injury - patient has history of intake of NSAIDs. Possibility of an acute tubular n ecrosis remains. However, the urine sediment does not support at the present time. She has had decr eased fractional excretion of sodium. She may have possibility of hemodynamically mediated renal dys function. For the moment, I agree with continuing supportive care. Continue normal saline and album in infusion. There is no indication of dialytic intervention at the present time. Please note she h as a right femoral dialysis catheter. I will reevaluate her in a.m. if there is any indication for d ialysis. 2. Mild hyperkalemia. We will observe. 3. Status post colectomy with subsequent anastomotic leak - status post exploratory laparotomy and r epair. Surgery is following.
--- NOTE | 2017-11-14 11:29 | PRG ---
DATE OF SERVICE: 11/14/2017 SUBJECTIVE: Ms. Chou had some issues with hypotension and low urine output overnight. Hypotension responded to fluids, but her urine output has still been very low. She had a severe base deficit postoperatively and received some bicarbonate and quite a large amount of IV fluids overnight. She is maintaining her O2 sats. This morning, she is alert and answering yes/no questions, although she is still on the ventilator. They have not been able to give her much sedation, because of blood pressure issues. OBJECTIVE: LUNGS: Clear. ABDOMEN: Soft, although obviously still somewhat tender. Her dressings are clean and Wound Care has been consulted for VAC placement at the right upper quadrant incision. VITAL SIGNS: She has been afebrile. Her heart rate has come down into the 90s , respiratory rate is 21, 92% saturated, blood pressure 116/51. Urine output has been 5 to 30 mL per hour and has been better in the past few hours. LABORATORY DATA: Her white count is 4.5 after being briefly elevated to 10.9 postoperatively, she has a bandemia which was 48 yesterday and 25 this morning. Her base deficit has improved slightly from 13-9.1. BUN and creatinine is also slightly better at 30 and 3.87. Bicarbonate is still very low at 15. Potassium has come down a little bit to 5.2. Prealbumin is low at 9. Cortisol level is 30. ASSESSMENT: Status post anastomotic leak, likely due to staple failure. This was repaired and she was washed out and diverted. Her sepsis appears to be improving. Her urine output is slightly better, although she is still in acute renal failure. She has required a lot of fluids overnight, but I think she is probably still dry, so I recommended to her family that I place a central venous catheter to monitor central venous pressure. They were agreeable to this and this was done as detailed below. Her initial CVP was negative at 1, so I do believe that she is still intravascularly depleted and we will continue to give her IV fluids as needed to support her urine output and blood pressure. Given her low prealbumin, advanced age and cancer, we'll put her on TPN as well; however, her ileostomy is already having some output, so we may be able to start tube feeds soon. However, I am hesitant to do that, given her preoperative nausea and vomiting, at this point. ALLYSOND
--- NOTE | 2017-11-14 11:30 | OP ---
PROCEDURE PERFORMED: Left IJ central venous catheter placement. DESCRIPTION OF PROCEDURE: After informed consent was obtained from the patient' s family, she was prepped and draped in standard sterile fashion and local anesthesia infused to the deltopectoral groove. Attempts were made to access the left subclavian vein, but the subclavian artery was encountered instead. An ultrasound was used sterilely to examine the area and the subclavian artery was found to be tortuous and located directly anterior to the vein with no good angle of approach to the vein. Therefore, the decision was made to place a left IJ catheter. Even with the patient in steep Trendelenburg, the IJ vein was very small, but this was able to be accessed under direct ultrasound guidance and a wire threaded and confirmed to be in the compressible vein. The tract was dilated and a central venous catheter placed over the wire. All three ports easily aspirated dark venous nonpulsatile blood and easily flushed. The catheter was secured to the skin in four locations and a Biopatch and Tegaderm dressing placed. Postoperative chest x-ray showed no evidence of pneumothorax and good position of the catheter tip in the superior vena cava. NATI
[2017-11-14] MEDS: Morphine 2 MG/ML SYRINGE SLOW IVP PRN ×2 (12:00→19:53)
--- NOTE | 2017-11-14 12:02 | CON ---
DATE OF CONSULTATION: 11/14/2017 This is an 87-year-old female, intubated on the vent, sedated. PHYSICAL EXAMINATION: VITAL SIGNS: Pulse 109, blood pressure 150/82, sats 90%, respirations 15. Events are noted. She has been in the hospital here since she has a surgery done on 11/10/2017. Anabella arently, the surgery done by Dr. Childress included laparoscopic extended right hemicolectomy. Postop she had a complication, she had a leak, was taken back to surgery, again. She developed cardi ac arrhythmias and worsening renal failure. She was taken back to surgery yesterday for a repeat lap after a CT abdomen and pelvis shows large amount of free air and fluid and an anastomotic leak was f ound. She also has malignant hypothermia. ALLERGIES: She is allergic to SUCCINYLCHOLINE. The patient's at this time is not at the bedside. Additional information that we have is that the patient had a normal chest x-ray on admission. No h istory of apparently alcohol or tobacco abuse. PAST MEDICAL HISTORY: 1. Malignant hypothermia. 2. History of colon cancer. 3. History of supraventricular tachycardia. PAST SURGICAL HISTORY: 1. She had a colectomy for a fungating obstructing mass. 2. Hysterectomy. 3. Gallbladder. 4. Cataracts. MEDICATION FROM HOME: Pain medicines, Zoloft 100, Protonix, mirtazapine 30, glucose 150, amlodipine 5. REVIEW OF SYSTEMS: Otherwise unobtainable. PHYSICAL EXAMINATION: GENERAL: She is awake, responsive, on the vent. VITAL SIGNS: Pulse 101, blood pressure is now 134/84 on the A-line, respirations 21, sats are adequa te. I's and O's are 2337 in, 189 out. CHEST: Chest revealed decreased breath sounds, no wheezing. CARDIAC: Normal S1, S2, no gallops. ABDOMEN: Soft. LABORATORY AND X-RAY FINDINGS: X-ray now shows bilateral pleural effusion, elevated right hemidiaphr agm. White count 4000, H&H 8 and 29, platelet count is normal, 25 segs, 11 bands, 40 neutrophils, 25 bands . PO2 136, pCO2 25, pH 7.39. Creatinine 3.8. IMPRESSION: 1. Abdominal sepsis and anastomosis leak following a right hemicolectomy, abnormal x-ray. 2. Bilateral pleural effusion. 3. Renal failure. 4. Previous hypertension. 5. Depression. PLAN: Zosyn, cefoxitin have been continued. I have ordered some albumin. Will try and wean if possible. Otherwise, supportive care, PT, nutrition. Forty-five minute critical care time. I will follow.
--- NOTE | 2017-11-14 12:55 | PQF ---
FREEDOM RESTREPOKYLAH [id number] SURG A- [id number] CLINICAL DOCUMENTATION IMPROVEMENT CLARIFICATION FORM: ICD-10 Updated PLEASE DO AN ADDENDUM TO THE PROGRESS NOTE WITH ANY DOCUMENTATION UPDATES OR ADDITIONS AND CARRY THROUGH TO DC SUMMARY. THANK YOU. DATE: 11-14-17 ATTN: DR. PINEDO Please exercise your independent, professional judgment in responding to the clarification form. Clinical indicators are provided on the bottom of this form for your review Please check appropriate box(s): [ ] A-FIB related to recent colectomy [ ] A-FIB not related to recent colectomy [ ] Other diagnosis [ ] Unable to determine CLINICAL INDICATORS - SIGNS / SYMPTOMS / LABS * TACHYCARDIA EARLIER TODAY - LOOKED LIKE A-FIB. - DR. RAMSAY 11-13 * SEVERAL PAC / NSVT - CARDIO CONSULT 11-13 RISK FACTORS * LAPAROSCOPIC EXTENDED RIGHT HEMICOLECTOMY - 11-10 OP NOTE TREATMENT: * LABS: ELECTROLYTES - 11-13 * COPE/MAR: CALCIUM, BICARB, GLUCOSE, INSULIN - 11-13 * RETURN TO SURGERY FOR ANASTOMOTIC LEAK 11-13 * CARDIO CONSULT - 11-13 THANK YOU, LOAN (This form is maintained as a part of the permanent medical record) 2015 [employer]. All Rights Reserved Loan Vallejo RN, BS [email or web address] [facility] CENTERJerald
[2017-11-14] MEDS ORDERED: Norepinephrine 8 MG/250 ML BAG IVPB PRN (12:58)
[2017-11-14] MEDS ORDERED: Norepinephrine 8 MG/0.9% NS 250 ML IVPB SCH (13:00)
[2017-11-14] MEDS ORDERED: Norepinephrine 8 MG in Sodium Chloride 0.9% 250 ML 250 ML IVPB PRN (13:00)
--- NOTE | 2017-11-14 13:58 | PDOC.OP ---
Operative Note - Operative Note Operative Note: PROCEDURE: Laparoscopic hand-assisted repair of anastomotic leak, abdominal washout and drain placement, and diverting ileostomy, placement of femoral hemodialysis catheter DATE OF PROCEDURE: 11/13/27 SURGEON: Dahiana Mak M.D. PREOPERATIVE DIAGNOSES: Likely anastomotic leak, acute renal failure POSTOPERATIVE DIAGNOSIS: Anastomotic leak, acute renal failure HISTORY: Ms. Vargas is an 87-year-old woman who underwent a laparoscopic hand- assisted right colectomy on 11/10/2017. She had seemed to be recovering well until mid day today when she was noted to be tachycardic. She was initially felt to be in atrial fibrillation and was transferred to telemetry but cardiology felt that she was in sinus tachycardia with PACs, and she was noted to have acute renal failure with hyperkalemia. A noncontrast CT scan of the abdomen was rapidly obtained and the patient was noted to have a large amount of free fluid and free air in her abdomen which was well above will be considered normal for this phase and her recovery. She did not have peritonitis on examination and complained of only mild abdominal pain but it was felt that her pain response might will be blunted due to her advanced age. The recommendation was made to proceed emergently to the operating room for laparoscopic possible open exploration, washout and repair, with diverting ileostomy if an anastomotic leak was found. In addition her peripheral IV access was tenuous so placement of a central line was recommended. Given her acute renal failure and hyperkalemia, her treasury assistant, asked that a central line adequate for dialysis be placed so a trialysis femoral catheter was recommended. PROCEDURE IN DETAIL: After informed consent was obtained and appropriate preoperative antibiotics restarted the patient was taken to the operating room where she was placed in supine position and general endotracheal anesthesia was administered, carefully avoiding inhaled anesthetics and succinylcholine used due to the patient's history of malignant hyperthermia. Her groin was prepped and draped in standard sterile fashion and the patent compressible right femoral vessel was accessed under direct ultrasound guidance with excellent flow of dark venous nonpulsatile blood. A wire was placed through the needle and the tract was dilated and a trial dialysis catheter placed over the wire and secured to the skin. A Biopatch and Tegaderm dressing were placed. All 3 lines easily aspirated dark venous nonpulsatile blood and easily flushed without resistance. These lines were passed to anesthesiology for continued resuscitation. Attention was then turned to the laparoscopic procedure. The abdomen was prepped and draped in standard sterile fashion and the left upper quadrants laparoscopic sites reopened. The trocar was able to be placed into the abdominal cavity through the previous opening and carbon dioxide gas insufflated to an intra-abdominal pressure of 15 which the patient tolerated well. Opening pressure was 7. There was no odor on placement of the trocar. The laparoscope was advanced into the abdominal cavity were large amount of bilious fluid and purulent exudate was noted. There is no evidence of trocar injury. The. Once appeared to be centered in the right upper quadrant but the anastomosis was not entirely visible. Additional dissecting trochars were placed in the left lower quadrant and umbilical sites and fluid suctioned out and sent for Gram stain and culture. The transverse colon was identified and traced to the anastomosis. The visible portion of the anastomosis appeared normal but there were dense adhesions around the transverse staple line which was not visible. In addition the patient had fairly extensive interloop adhesions so the decision was made to open the right upper quadrant hand port incision to better take down adhesions and expose the anastomosis. The right upper quadrant incision was reopened and a GelPort placed. The ileocolic anastomosis was able to be elevated and cleared of surrounding adhesions and a large amount of bilious drainage identified coming from the transverse staple line across the small intestine. The sutures reinforcing the junction of the staple lines was intact as were the sutures at each corner and the angle of sorrow that the staple line appeared to have completely dehisced across the small intestine. The small intestine appeared completely viable and healthy so the decision was made to close this in 2 layers and liver with an ileostomy. The small bowel was closed with a running Vicryl full-thickness suture and the suture line inverted with 3-0 silk Lembert sutures with excellent technical result. The anastomosis between the small intestine and colon was entirely intact and appeared healthy and widely patent. The abdomen was then copiously irrigated using the hand port to take down adhesions and to irrigate the bowel with 15 L of warm saline until all return was clear. The bowel was traced proximal from the ileocolic anastomosis until a loop encountered that was relatively noninflamed and adequately lax to reach through the abdominal wall without tension. A circular skin incision was made and dissection carried down through the subcutaneous tissues in the right lower quadrant to the anterior rectus sheath which was incised in a cruciate manner. Rectus muscles were split and the posterior sheath which was extremely flimsy was incised in a cruciate manner as well. The ileum was brought out through the rectus sheath and a window created through the mesentery and a red rubber catheter placed through this window. The ileum was positioned with the proximal and inferior and the distal and superior and was easily lax enough to reach through the abdominal wall without tension. RAMSEY drains were then placed into the abdomen through the GelPort and drawn out through the right upper quadrant and right lower quadrant trocar sites. The umbilical trocar was removed and hemostasis verified. The right upper quadrant RAMSEY drain was placed across the upper abdomen and then lateral and inferior to the ileocolic anastomosis, and the left lower quadrant trocar was placed into the pelvis. Both were secured with drain sutures. The right upper quadrant incision was then closed. The posterior rectus sheath was very flimsy but was successfully closed with a running PDS suture. The wound was then copiously irrigated and the anterior rectus sheath reapproximated with a running PDS suture. The wound was again copiously irrigated and the subcutaneous tissues and skin reapproximated in the midline. The wound was then packed with saline moistened gauze and covered. The umbilical trocar was copiously irrigated and the skin closed with a 4-0 Monocryl suture and Dermabond applied. Attention was then turned to maturation of the ileostomy. The ileum was secured to the anterior rectus sheath circumferentially with Lembert sutures. A transverse enterotomy was made and everted ileostomy was created by securing the full thickness edge of the bowel to Lembert sutures 2 cm from the edge of the bowel and then securing this to the dermis at 3 points on each loop of the bowel, then securing the full thickness of the bowel to the dermis circumferentially to mature the ileostomy. The red rubber catheter was secured to the skin to prevent retraction and a ileostomy appliance was placed. The patient was taken to the CCU intubated in critical but stable condition for ongoing resuscitation. Estimated blood loss was minimal. There were no complications. Specimen is peritoneal fluid for Gram stain and culture. Of note , the patient received approximately 1700 mL of IV fluid intraoperatively and had negligible urine output. She did require pressors intermittently throughout the procedure but at the end of the procedure was saturating well and maintaining her blood pressure off of pressors.
[2017-11-14] MEDS ORDERED: Piperacillin/Tazobactam 2.25 GM in Sodium Chloride 0.9% 50 ML IVPB SCH (14:00)
[2017-11-14] MEDS ORDERED: D5 1/2 NS 500 ML IV SCH (15:00)
[2017-11-14] MEDS ORDERED: Sterile Water 10 ML ONE (17:50)
[2017-11-14] MEDS: Hydrocortisone Sod Succ/PF 100 mg/2 ml Vial IVP SCH ×2 (17:57→23:22)
--- NOTE | 2017-11-14 19:16 | PRG ---
DATE OF SERVICE: 11/14/2017 She was extubated earlier. We thought she would be able to be breath on her own, unfortunately short ly after extubation, she did have some respiratory distress, sats dropped in the 80s, low flow O2 inc luding Ventimask 50%, sats still remain in 91%-92%. Noninvasive ventilation was tried for a period o f about 30 minutes. Clearly, she was having difficulty breathing. Pulse was 130, blood pressure 120 /80, respiratory rate 32. It was felt that she would not tolerate the BiPAP; therefore, a 7.5 endotracheal tube was placed over the bronchoscope, intubated orally without any difficulty. The tube was above the clifton. The sarah ent was bagged. She was given morphine total for the procedure. Additionally, both lungs were inspe cted. There was not much pus or blood seen. She is back on the volume cycle respirator. We will give fentanyl for sedation. We will wean it slo wly.
[2017-11-14] MEDS: Mirtazapine 30 MG TAB PO SCH (20:15)
[2017-11-14] MEDS: Enoxaparin Sodium 40 MG/0.4 ML SYRINGE SC SCH (20:15)
[2017-11-14] MEDS: Piperacillin/Tazobactam 2.25 GM in Sodium Chloride 0.9% 100 ML IVPB SCH (21:27)
[2017-11-14] MEDS: MULTIVITAMINS IV SCH ×5 (21:59)
[2017-11-14] MEDS: MAGNESIUM SULFATE IV SCH ×5 (21:59)
[2017-11-14] MEDS: [UNRECOGNIZED DRUG - OTHER] IV SCH ×5 (21:59)
[2017-11-14] MEDS: SODIUM ACETATE IV SCH ×5 (21:59)
[2017-11-15 04:42] LABS: Anion Gap 12 mmol/L (10-20); BUN (Urea Nitrogen) 36 mg/dL (9.8-20.1); Band 27 % (5-11); Calc. Creatinine Clearance 18 mL/min (70-130); Calcium 8.5 mg/dL (7.8-10.44); Carbon Dioxide 17 mmol/L (23-31); Chloride 113 mmol/L (98-107); Estimated GFR-MDRD 15; Glucose 212 mg/dL (83-110); Hemoglobin 7.7 g/dL (12.0-16.0); Hypochromia SLIGHT = 6-15 cells (100X) (0-5/hpf); Lymphocytes 5 % (21-51); MDiff Complete? YES; Mean Corpuscular HGB CONC 29.9 g/dL (32.0-36.0); Mean Corpuscular Hemoglobin 26.3 pg (27.0-31.0); Mean Corpuscular Volume 88.1 fl (81.0-99.0); Mean Platelet Volume 8.2 fL (7.4-10.4); Monocytes 15 % (0-10); Neutrophil 52 % (42-75); PLT Morphology Comment Appears Adequate; Platelet Count 274 thou/uL (130-400); Potassium 4.4 mmol/L (3.5-5.1); RBC Distribution Width 22.5 % (11.5-14.5); Reactive Lymphocytes 1 % (0-10); Red Blood Cell (RBC) Count 2.93 mill/uL (4.20-5.40); Sodium 138 mmol/L (136-145); White Blood Cell (WBC) Count 9.2 thou/uL (4.8-10.8)
[2017-11-15] MEDS: Hydrocortisone Sod Succ/PF 100 mg/2 ml Vial IVP SCH ×4 (06:44→23:09)
[2017-11-15] MEDS: Piperacillin/Tazobactam 2.25 GM in Sodium Chloride 0.9% 100 ML IVPB SCH ×3 (06:45→22:11)
--- NOTE | 2017-11-15 08:06 | PDOC.GSPN ---
Surgery Progress Note: Subj - Subjective Narrative: Responds to questions, no pressors, stable overnight Surgery Progress Note: Obj - Vital signs Vital signs: Vital Signs - Most Recent Temp Pulse Resp BP Pulse Ox 98.6 F 92 18 130/49 L 96 11/15/17 04:00 11/15/17 02:36 11/15/17 06:00 11/14/17 14:07 11/15/17 00:38 - Physical Exam General: no distress Respiratory: clear to auscultation Abdomen: non tender Wound: dressing clean,dry,intact Surgery Progress Note: Results - Labs Result Diagrams: 11/15/17 03:52 11/15/17 03:52 Lab results: Laboratory Results WBC 9.2 thou/uL (4.8-10.8) 11/15/17 03:52 RBC 2.93 mill/uL (4.20-5.40) L 11/15/17 03:52 Hgb 7.7 g/dL (12.0-16.0) L 11/15/17 03:52 Hct 25.8 % (36.0-47.0) L 11/15/17 03:52 MCV 88.1 fl (81.0-99.0) 11/15/17 03:52 MCH 26.3 pg (27.0-31.0) L 11/15/17 03:52 MCHC 29.9 g/dL (32.0-36.0) L 11/15/17 03:52 RDW 22.5 % (11.5-14.5) H 11/15/17 03:52 Plt Count 274 thou/uL (130-400) 11/15/17 03:52 MPV 8.2 fL (7.4-10.4) 11/15/17 03:52 Neutrophils % 64.2 % (42.0-75.0) 11/12/17 05:34 Neutrophils % (Manual) 52 % (42-75) 11/15/17 03:52 Band Neuts % (Manual) 27 % (5-11) H 11/15/17 03:52 Lymphocytes % 28.9 % (21.0-51.0) 11/12/17 05:34 Lymphocytes % (Manual) 5 % (21-51) L 11/15/17 03:52 Reactive Lymphs % 1 % (0-10) 11/15/17 03:52 Monocytes % 5.6 % (0.0-10.0) 11/12/17 05:34 Monocytes % (Manual) 15 % (0-10) H 11/15/17 03:52 Eosinophils % 0.9 % (0.0-10.0) 11/12/17 05:34 Eosinophils % (Manual) 1 % (0-10) 11/14/17 04:21 Basophils % 0.4 % (0.0-1.0) 11/12/17 05:34 Metamyelocytes % (Man) 13 % (0-0) H 11/14/17 04:21 Myelocytes % 1 % (0-0) H 11/14/17 04:21 Neutrophils # Not Reportable 11/13/17 14:04 Lymphocytes # Not Reportable 11/13/17 14:04 Monocytes # 0.5 thou/uL (0.11-0.59) 11/12/17 05:34 Eosinophils # 0.1 thou/uL (0.0-0.7) 11/12/17 05:34 Basophils # 0.0 thou/uL (0.0-0.2) 11/12/17 05:34 WBC Morphology SLIGHT 11/13/17 14:04 Hypochromia SLIGHT = 6-15 cells (100X) (0-5/hpf) 11/15/17 03:52 Plt Morphology Comment Appears Adequate 11/15/17 03:52 Polychromasia SLIGHT = 2-3 cells (100X) (0-2/hpf) 11/13/17 14:04 Anisocytosis MODERATE=16-30 cells (100X) (0-5/hpf) 11/14/17 04:21 Target Cells SLIGHT = 2-5 cells (100X) (0-1/hpf) 11/13/17 14:04 Ovalocytes SLIGHT = 2-5 cells (100X) (0-1/hpf) 11/13/17 14:04 Bite Cells SLIGHT = 2-5 cells (100X) (0-1/hpf) 11/14/17 04:21 Schistocytes SLIGHT = 2-5 cells (100X) (0-1/hpf) 11/14/17 04:21 PT 17.7 SEC (12.0-14.7) H 01/12/18 01:20 INR 1.4 11/14/17 01:20 APTT 31.5 SEC (22.9-36.1) 11/14/17 01:20 Specimen Type ARTERIAL 11/14/17 07:00 Puncture Site LUISITO 11/14/17 07:00 Bicarbonate Actual 14.8 mEq/L (22-26) L 11/14/17 07:00 ABG pH 7.39 (7.35-7.45) 11/14/17 07:00 ABG pCO2 25.2 mmHg (35.0-45.0) L* 11/14/17 07:00 ABG pO2 136.5 mmHg (80.0-100.0) H 11/14/17 07:00 ABG O2 Sat Calc/Jerrica 98.9 % (94.0-100.0) 11/14/17 07:00 ABG O2 Content 11.1 vol% (17.5-23.0) L 11/14/17 07:00 ABG Base Excess -9.1 mEq/L (0 (+/-) 2.5) L 11/14/17 07:00 ABG Hematocrit 33.8 % (36.0-47.0) L 11/14/17 01:30 ABG Hemoglobin 7.9 g/dL (12.0-16.0) L 11/14/17 07:00 ABG Oxyhemoglobin 94.4 % (94.0-97.0) 11/14/17 01:30 ABG Carboxyhemoglobin 1.1 gm% (0.0-3.0) 11/14/17 07:00 ABG Methemoglobin 0.4 gm% (0.0-1.5) 11/14/17 07:00 ABG Deoxyhemoglobin 3.7 % (0.0-5.0) 11/14/17 01:30 Amarjit Test NOT DONE 11/14/17 07:00 A-a O2 Gradient 188.500 (0-20) H 11/14/17 07:00 Sodium 139 mmol/L (135-148) 11/14/17 07:00 Potassium 4.4 mmol/L (3.70-5.30) 11/14/17 07:00 Chloride 106 mmol/L (98-106) 11/14/17 07:00 Ionized Calcium 1.2 mmol/L (1.12-1.30) 11/14/17 07:00 Mode of Support SIMV.PSV 11/14/17 07:00 Mechanical Rate 24 min 11/14/17 07:00 Inspired O2 50 % 11/14/17 07:00 Tidal Volume 450 ml 11/14/17 07:00 Pressure Support 10 cmH2O 11/14/17 07:00 PEEP or CPAP 5.0 cmH2O 11/14/17 07:00 Sodium 138 mmol/L (136-145) 11/15/17 03:52 Potassium 4.4 mmol/L (3.5-5.1) 11/15/17 03:52 Chloride 113 mmol/L (98-107) H 11/15/17 03:52 Carbon Dioxide 17 mmol/L (23-31) L 11/15/17 03:52 Anion Gap 12 mmol/L (10-20) 11/15/17 03:52 BUN 36 mg/dL (9.8-20.1) H 11/15/17 03:52 Creatinine 3.03 mg/dL (0.6-1.1) H 11/15/17 03:52 Estimated GFR (MDRD) 15 11/15/17 03:52 Glucose 212 mg/dL (83-110) H 11/15/17 03:52 POC Glucose 129 mg/dL (70-110) H 11/13/17 21:27 Hemoglobin A1c 4.7 % (4.0-6.0) 11/10/17 10:10 Calcium 8.5 mg/dL (7.8-10.44) 11/15/17 03:52 Phosphorus 5.9 mg/dL (2.3-4.7) H 11/14/17 01:20 Magnesium 1.7 mg/dL (1.6-2.6) 11/14/17 01:20 Total Bilirubin 1.1 mg/dL (0.2-1.2) 11/14/17 04:21 AST 42 U/L (5-34) H 11/14/17 04:21 ALT 18 U/L (8-55) 11/14/17 04:21 Alkaline Phosphatase 45 U/L (40-150) 11/14/17 04:21 CK-MB (CK-2) 2.9 ng/mL (0-6.6) 11/13/17 14:04 Troponin I 0.018 ng/mL (< 0.028) 11/13/17 14:04 B-Natriuretic Peptide 778.1 pg/mL (0-100) H 11/13/17 17:03 Serum Total Protein 4.3 g/dL (6.0-8.3) L 11/14/17 04:21 Albumin 2.3 g/dL (3.4-4.8) L 11/14/17 04:21 Globulin 2.0 g/dL (2.4-3.5) L 11/14/17 04:21 Albumin/Globulin Ratio 1.2 g/dL (1.2-2.2) 11/14/17 04:21 Prealbumin 9.0 mg/dL (14-37) L 11/14/17 01:20 Triglycerides 196 mg/dL (Less than 150) H 11/14/17 01:20 Cholesterol 77 mg/dl (< 200 Desired) 11/14/17 01:20 LDL Cholesterol, Calc 29 mg/dL 11/14/17 01:20 HDL Cholesterol 9 mg/dL (>60 Neg Risk) 11/14/17 01:20 Heart Disease Risk Ratio 8.6 (Less than 4.5) 11/14/17 01:20 Carcinoembryonic Ag 25.34 ng/mL (< or = 5.0) H 11/10/17 10:10 Free T4 0.92 ng/dL (0.70-1.48) 11/13/17 16:55 Free T3 Less than 1.00 pg/mL (1.71-3.71) L 11/13/17 16:55 TSH 3rd Generation 4.4016 uIU/mL (0.35-4.94) 11/13/17 16:55 Cortisol 30.20 ug/dL (See Ranges) 11/14/17 01:20 Urine Color YELLOW (Yellow) 11/13/17 17:55 Urine Clarity CLOUDY (Clear) 11/13/17 17:55 Urine pH 5.0 (5.0-9.0) 11/13/17 17:55 Ur Specific [place] 1.017 (1.002-1.036) 11/13/17 17:55 Urine Protein Negative mg/dL (Neg-Trace) 11/13/17 17:55 Urine Glucose (UA) Negative mg/dL (Negative) 11/13/17 17:55 Urine Ketones Negative mg/dL (Negative) 11/13/17 17:55 Urine Blood Negative (Negative) 11/13/17 17:55 Urine Nitrite Negative (Negative) 11/13/17 17:55 Urine Bilirubin Negative (Negative) 11/13/17 17:55 Urine Urobilinogen 0.2 mg/dL (0.2-1.0) 11/13/17 17:55 Ur Leukocyte Esterase Negative (Negative) 11/13/17 17:55 Urine Creatinine 173.62 mg/dL (47-110) H 11/13/17 03:58 Urine Sodium 26 mmol/L (Not Available) 11/14/17 03:58 Surgery Progress Note: A/P - Problem (1) Peritonitis Current Visit: Yes Code(s): K65.9 - PERITONITIS, UNSPECIFIED Status: Acute Assessment and Plan: Appreciate pulmonary assistance Wean vent as tolerated
[2017-11-15] MEDS ORDERED: Lidocaine 1% (PF) 30 ML VIAL ONE ×3 (08:33→12:54)
[2017-11-15 08:42] LABS: Actual Bicarbonate (HCO3a) 17.2 mEq/L (22-26); CO2 Tension 31.6 mmHg (35.0-45.0); O2 Tension (PaO2) 78.3 mmHg (80.0-100.0); pH, Arterial 7.35 (7.35-7.45)
[2017-11-15 08:43] LABS: Base Excess (BEa) -7.6 mEq/L (0 (+/-) 2.5); Hematocrit-ABG 26.5 % (36.0-47.0); Hemoglobin (Hb) 7.6 g/dL (12.0-16.0)
[2017-11-15 08:44] LABS: Calcium, Ionized 1.3 mmol/L (1.12-1.30); Puncture Site ALINE
--- NOTE | 2017-11-15 08:44 | RAD ---
SEMIUPRIGHT PORTABLE CHEST 1 VIEW: Date: 11/15/17 HISTORY: 87-year-old female with respiratory insufficiency. FINDINGS: Left subclavian catheter, NG tube, and endotracheal tubes are again noted in place. There has develop ed a large left-sided pneumothorax but without significant midline shift. There are some persistent b ibasilar pulmonary and parenchymal changes. IMPRESSION: Interval development of a large left-sided pneumothorax. Findings discussed with the patient's nurse, Ashlyn, at 0814 hours. CODE CR. POS: [facility]
[2017-11-15] MEDS: Pantoprazole 40 MG VIAL IVP SCH (08:49)
[2017-11-15] MEDS ORDERED: Famotidine/PF 20 mg/2ml Vial SLOW IVP SCH (09:00)
--- NOTE | 2017-11-15 09:07 | PRG ---
DATE OF SERVICE: 11/15/2017 Ms. Chou this morning is awake, alert, responsive, on the vent. PHYSICAL EXAMINATION: VITAL SIGNS: Sats are 96%, pulse 77, blood pressure 140/80. X-ray shows a big left-sided pneumothor ax, spontaneous. I's and O's are 2237 in, 189 out. CHEST: Chest reveals decreased breath sounds left side. Right lung unremarkable. CARDIAC: Normal S1, S2. No gallops. ABDOMEN: Soft, no masses. LABORATORY: White count 9000, H&H 7 and 25, platelet 75, big left shift, 27 bands. Creatinine is 2, BUN 36. Phosphorus 5.9. Cortisol level was 30. IMPRESSION: 1. Status post lap for peritonitis. 2. Left spontaneous pneumothorax. 3. Severe deconditioning. 4. Renal failure. PLAN: Stressors of steroids, broad-spectrum antibiotics have been initiated. Chest tube will be inserted. She is not weanable at this stage. Probably restart nutrition in the n ext 24-48 hours. I will follow. One-half hour critical care time.
[2017-11-15] MEDS ORDERED: Diprivan 20 ML ONE (09:50)
[2017-11-15] MEDS: Morphine 2 MG/ML SYRINGE SLOW IVP PRN ×2 (10:40→13:38)
--- NOTE | 2017-11-15 10:47 | RAD ---
UPRIGHT PORTABLE CHEST 1 VIEW: Date: 11/15/17 HISTORY: 87-year-old female with follow-up left side pneumothorax following chest tube placement. FINDINGS: Left chest tube has been placed. There is a small, persistent, primarily apical pneumothorax, but thi s is decreased and shows improvement from the prior study. There are persistent parenchymal changes i n both right and left lower lobes, and bilateral costophrenic angle blunting. IMPRESSION: Left-sided chest tube placement with improvement in the left-sided pneumothorax with a small persiste nt left-sided pneumothorax. POS: [facility]
--- NOTE | 2017-11-15 12:05 | OP ---
PREOPERATIVE DIAGNOSIS: Left pneumothorax. POSTOPERATIVE DIAGNOSIS: Left pneumothorax. PROCEDURE: Left chest tube placement 28 [place]ian. SURGEON: Terrell Hu M.D. ANESTHESIA: Local. ESTIMATED BLOOD LOSS: Minimal. COMPLICATIONS: None. SPECIMEN: None. FINDINGS: Post-film x-ray reveals tube to be in good position and pneumothorax gone. TECHNIQUE: The patient had her left arm placed above her head. Her left chest and flank was prepped and draped in a sterile fashion. Local anesthetic infiltrated over the fifth intercostal space. An incision was made. Dissection was taken down to the rib interspace and the fourth intercostal space . The chest cavity is entered over the fifth rib and a large liu of air is obtained. The 28 [place]ian tube was placed under no tension to a distance of 12 cm, sewn to the skin using the enclosed silk. Vaseline gauze and sterile dressings are placed. There was a liu of air and followed by no air leak as after it was hooked to the pleurovac system. The patient tolerated procedure well. Post film x- ray reveals pneumothorax to be gone.
--- NOTE | 2017-11-15 12:35 | PRG ---
DATE OF SERVICE: 11/15/2017 SUBJECTIVE: Ms. Chou is an 87-year-old white female who was seen by the Renal Service for her acut e kidney injury secondary to her hemodynamically mediated renal dysfunction. She also was brought ba to the OR due to an anastomotic leak. Temporary femoral dialysis catheter has also inserted. She was also noted to be hyperkalemia which has improved. Overall with IV hydration and salt poor album in, her renal function is slowly improving. Her most recent creatinine is now noted at 3.03 and this was said to have peaked at the value of 4.0. In addition, potassium is now 4.4. The patient is sti ll sedated. PHYSICAL EXAMINATION: VITAL SIGNS: Blood pressure is 157/64, heart rate 84, pulse ox 95%, respiratory rate 20. GENERAL: Sedated, intubated, on ventilator support. SKIN: Adequate turgor. HEENT: Pinkish conjunctivae. Anicteric sclerae. NECK: No neck mass, no carotid bruits, no JVD. CHEST: No deformities. LUNGS: Decreased breath sounds. HEART: Normal sinus rhythm. No murmur, no gallops, no rubs. ABDOMEN: Globular, soft, nontender, no masses. Positive for surgical scar. Abdomen was also positi ve for ileostomy. EXTREMITIES: Trace edema. MEDICATIONS: Medications of 11/15/2017 was reviewed. LABORATORY DATA: Laboratories of 11/15/2017; white count 9.2, hemoglobin 7.7, sodium 138, potassium 4.4, chloride 113, carbon dioxide 17, BUN 36, creatinine 3.03, glucose 212, and calcium 8.5. ASSESSMENT AND PLAN: 1. Acute kidney injury - I suspect hemodynamically mediated renal dysfunction. Continue current man agement. No indication for any dialytic intervention. 2. Left pneumothorax - status post left chest tube placement by Dr. Hu. 3. Anastomotic leak - patient is status post repair, doing stable. Surgery continues to follow. 4. Anemia. Continue to observe. If needed, we will transfuse 2 units of packed RBC once hemoglobin becomes less than 7. Overall, prognosis remains guarded.
--- NOTE | 2017-11-15 16:00 | PDOC.PN ---
- Subjective Encounter Start Date: 11/15/17 Encounter Start Time: 15:57 Patient seen at bedside. Still sedated, but responsive. Earlier today had a chest tube placed for pneumothorax. - Objective MAR Reviewed: Yes Vital Signs & Weight: Vital Signs (12 hours) Temp Pulse Resp BP Pulse Ox 11/15/17 14:51 85 177/76 H 11/15/17 14:00 21 H 11/15/17 12:00 99 F 23 H 11/15/17 10:56 84 157/64 H 11/15/17 10:00 23 H 11/15/17 08:33 77 171/160 H 11/15/17 08:00 98.1 F 77 20 95 11/15/17 06:00 18 11/15/17 04:00 98.6 F 18 Weight Admit Weight 180 lb Weight 204 lb 5.896 oz Most Recent Monitor Data Heart Rate from ECG 76 NIBP 129/51 NIBP BP-Mean 105 Respiration from ECG 17 SpO2 99 I&O: 11/14/17 11/15/17 11/16/17 06:59 06:59 06:59 Intake Total 2337 2723 Output Total 189 1811 1305 Balance 2148 912 -1305 Result Diagrams: 11/15/17 03:52 11/15/17 03:52 Phys Exam - Physical Examination Constitutional: NAD ET Tube in place Neck: no JVD Decreased Breath sounds on left hemithorax Cardiovascular: RRR Gastrointestinal: soft Musculoskeletal: pulses present Dx/Plan (1) Acute respiratory failure Code(s): J96.00 - ACUTE RESPIRATORY FAILURE, UNSP W HYPOXIA OR HYPERCAPNIA Status: Acute (2) Pneumothorax on left Code(s): J93.9 - PNEUMOTHORAX, UNSPECIFIED Status: Resolved (3) Acute renal failure Status: Acute Qualifiers: Acute renal failure type: unspecified Qualified Code(s): N17.9 - Acute kidney failure, unspecified - Plan cont current plan of care, continue antibiotics, medical social consultant, respiratory therapy, DVT proph w/lovenox * Continue ventilator care per PCC. * Appreciate GS input and assitance- Left chest tube placed * IV Zosyn * Monitor BUN/Cr * IV Steroids * Supportive care
[2017-11-15] MEDS: Mirtazapine 30 MG TAB PO SCH (21:05)
[2017-11-15] MEDS: Enoxaparin Sodium 40 MG/0.4 ML SYRINGE SC SCH (21:05)
[2017-11-15] MEDS: MULTIVITAMINS IV SCH ×5 (22:11)
[2017-11-15] MEDS: MAGNESIUM SULFATE IV SCH ×5 (22:11)
[2017-11-15] MEDS: [UNRECOGNIZED DRUG - OTHER] IV SCH ×5 (22:11)
[2017-11-15] MEDS: SODIUM ACETATE IV SCH ×5 (22:11)
[2017-11-16 04:41] LABS: Anion Gap 10 mmol/L (10-20); BUN (Urea Nitrogen) 44 mg/dL (9.8-20.1); Calc. Creatinine Clearance 36 mL/min (70-130); Calcium 8.6 mg/dL (7.8-10.44); Carbon Dioxide 19 mmol/L (23-31); Chloride 111 mmol/L (98-107); Estimated GFR-MDRD 29; Glucose 150 mg/dL (83-110); Potassium 3.9 mmol/L (3.5-5.1); Sodium 136 mmol/L (136-145)
[2017-11-16 05:08] LABS: Band 9 % (5-11); Elliptocytes SLIGHT = 2-5 cells (100X) (0-1/hpf); Hemoglobin 7.8 g/dL (12.0-16.0); Lymphocytes 8 % (21-51); MDiff Complete? YES; Mean Corpuscular HGB CONC 31.3 g/dL (32.0-36.0); Mean Corpuscular Hemoglobin 27.2 pg (27.0-31.0); Mean Platelet Volume 8.3 fL (7.4-10.4); Metamyelocyte 4 % (0-0); Monocytes 5 % (0-10); Neutrophil 72 % (42-75); Nucleated RBC 1 % (0); PLT Morphology Comment Appears Adequate; Platelet Count 260 thou/uL (130-400); Polychromasia SLIGHT = 2-3 cells (100X) (0-2/hpf); RBC Distribution Width 22.7 % (11.5-14.5); Reactive Lymphocytes 2 % (0-10); Red Blood Cell (RBC) Count 2.85 mill/uL (4.20-5.40); Schistocytes SLIGHT = 2-5 cells (100X) (0-1/hpf); White Blood Cell (WBC) Count 15.7 thou/uL (4.8-10.8)
[2017-11-16] MEDS: Hydrocortisone Sod Succ/PF 100 mg/2 ml Vial IVP SCH ×3 (06:01→17:52)
[2017-11-16] MEDS: Piperacillin/Tazobactam 2.25 GM in Sodium Chloride 0.9% 100 ML IVPB SCH ×3 (06:01→20:37)
[2017-11-16 07:43] LABS: Actual Bicarbonate (HCO3a) 19.4 mEq/L (22-26); Base Excess (BEa) -5.3 mEq/L (0 (+/-) 2.5); CO2 Tension 34.2 mmHg (35.0-45.0); Hematocrit-ABG 25.9 % (36.0-47.0); Hemoglobin (Hb) 7.4 g/dL (12.0-16.0); pH, Arterial 7.37 (7.35-7.45)
[2017-11-16 07:44] LABS: Calcium, Ionized 1.3 mmol/L (1.12-1.30); Puncture Site RR
[2017-11-16] MEDS: Pantoprazole 40 MG VIAL IVP SCH (09:10)
--- NOTE | 2017-11-16 09:47 | RAD ---
SEMIUPRIGHT PORTABLE CHEST 1 VIEW: Date: 11/16/17 HISTORY: Respiratory insufficiency. FINDINGS: Stable life support tubes. Left chest tube in place. No significant residual left-sided pneumothorax. Slightly more prominent right mid and lower lung zone opacity changes consistent with some worsening pleural and parenchymal changes. Minimal but improving left infrahilar parenchymal changes consisten t with some residual subsegmental atelectasis. IMPRESSION: No significant residual left-sided pneumothorax. Slightly progressive pleural and parenchymal opacity changes in the right mid and lower lung zones. Slightly improved left chest base. Continue short-ter m follow-up. POS: [facility]
--- NOTE | 2017-11-16 12:05 | PRG ---
DATE OF SERVICE: 11/16/2017 RENAL MEDICINE SUBJECTIVE: Mr. Chou is an 87-year-old white female who underwent colon resection, and seen by the Renal Service for acute kidney injury. A presumptive diagnosis of hemodynamically mediated renal dy sfunction was made. She was taking ketorolac which has been discontinued. She received IV infusion with colloids and crystalloids. She also underwent exploration secondary to anastomotic leak of rese ction. Since that time, she is doing better. Renal function is improving. She has also developed p neumothorax and chest tube was placed by Dr. Hu. No acute events last night. OBJECTIVE: VITAL SIGNS: Blood pressure 108/56, heart rate 78, respiratory rate 18, and pulse ox 98%. GENERAL: Arousable, not in distress, intubated on ventilator support. SKIN: Adequate turgor. HEENT: The patient has slightly pale conjunctivae, anicteric sclerae. NECK: No neck mass, no carotid bruits, no JVD. CHEST: No deformities. LUNGS: Clear breath sounds. No wheezing, no crackles. HEART: Normal sinus rhythm. No murmur, no gallops or rubs. ABDOMEN: Globular, soft. Positive for surgical scar. EXTREMITIES: No edema, no deformities. MEDICATIONS: Of 11/16/2017 was reviewed. LABORATORY DATA: Of 11/16/2017 showed the following: White count 15.7, Hemoglobin is 7.8. Sodium 1 36, potassium 2.9, chloride 111, carbon dioxide 19, BUN 44, creatinine 1.67, glucose 150, calcium 8.6 . ASSESSMENT AND PLAN: 1. Acute kidney injury - hemodynamically mediated renal dysfunction, much improved with empiric volu me repletion. Currently, patient is now on total parenteral nutrition for nutritional support as wel l as for volume repletion. Her creatinine is much improved from a peak creatinine 4.0 to a most rece nt value of 1.67. Her GFR is now 29 mL per minute. There is no indication for any dialytic interven tion with this patient. Continue supportive care. 2. Anastomotic leak - status post exploratory laparotomy with repair of anastomotic leak of her inte darren. 3. Pneumothorax - status post chest tube placement. 4. Anemia. Continue to observe p.r.n. blood transfusion.
[2017-11-16] MEDS ORDERED: Fentanyl 100 MCG/2 ML VIAL SLOW IVP PRN (12:29)
[2017-11-16] MEDS ORDERED: Acetaminophen 1,000 MG in Premix Bag 1 BAG IVPB PRN (12:30)
--- NOTE | 2017-11-16 12:32 | PDOC.GSPN ---
Surgery Progress Note: Subj - Subjective Narrative: Still on vent. Wakens to voice and follows commands. Denies pain. Surgery Progress Note: Obj - Vital signs Vital signs: Vital Signs - Most Recent Temp Pulse Resp BP Pulse Ox 99 F 74 16 108/56 L 99 11/16/17 08:00 11/16/17 12:27 11/16/17 12:27 11/16/17 10:26 11/16/17 12:27 - Physical Exam General: no distress Respiratory: clear to auscultation, other (chest tube, minimal serous drainage, no air leak) Abdomen: non tender, soft Wound: wound vac (in place), other (Ostomy with stool/air, mucosa pink) Surgery Progress Note: Results - Labs Result Diagrams: 11/16/17 04:00 11/16/17 04:00 Lab results: Laboratory Results WBC 15.7 thou/uL (4.8-10.8) H 11/16/17 04:00 RBC 2.85 mill/uL (4.20-5.40) L 11/16/17 04:00 Hgb 7.8 g/dL (12.0-16.0) L 11/16/17 04:00 Hct 24.8 % (36.0-47.0) L 11/16/17 04:00 MCV 87.0 fl (81.0-99.0) 11/16/17 04:00 MCH 27.2 pg (27.0-31.0) 11/16/17 04:00 MCHC 31.3 g/dL (32.0-36.0) L 11/16/17 04:00 RDW 22.7 % (11.5-14.5) H 11/16/17 04:00 Plt Count 260 thou/uL (130-400) 11/16/17 04:00 MPV 8.3 fL (7.4-10.4) 11/16/17 04:00 Neutrophils % 64.2 % (42.0-75.0) 11/12/17 05:34 Neutrophils % (Manual) 72 % (42-75) 11/16/17 04:00 Band Neuts % (Manual) 9 % (5-11) 11/16/17 04:00 Lymphocytes % 28.9 % (21.0-51.0) 11/12/17 05:34 Lymphocytes % (Manual) 8 % (21-51) L 11/16/17 04:00 Reactive Lymphs % 2 % (0-10) 11/16/17 04:00 Monocytes % 5.6 % (0.0-10.0) 11/12/17 05:34 Monocytes % (Manual) 5 % (0-10) 11/16/17 04:00 Eosinophils % 0.9 % (0.0-10.0) 11/12/17 05:34 Eosinophils % (Manual) 1 % (0-10) 11/14/17 04:21 Basophils % 0.4 % (0.0-1.0) 11/12/17 05:34 Metamyelocytes % (Man) 4 % (0-0) H 11/16/17 04:00 Myelocytes % 1 % (0-0) H 11/14/17 04:21 Neutrophils # Not Reportable 11/13/17 14:04 Lymphocytes # Not Reportable 11/13/17 14:04 Monocytes # 0.5 thou/uL (0.11-0.59) 11/12/17 05:34 Eosinophils # 0.1 thou/uL (0.0-0.7) 11/12/17 05:34 Basophils # 0.0 thou/uL (0.0-0.2) 11/12/17 05:34 Nucleated RBCs # (Man) 1 % (0) H 11/16/17 04:00 WBC Morphology SLIGHT 11/13/17 14:04 Hypochromia SLIGHT = 6-15 cells (100X) (0-5/hpf) 11/15/17 03:52 Plt Morphology Comment Appears Adequate 11/16/17 04:00 Polychromasia SLIGHT = 2-3 cells (100X) (0-2/hpf) 11/16/17 04:00 Anisocytosis MODERATE=16-30 cells (100X) (0-5/hpf) 11/14/17 04:21 Target Cells SLIGHT = 2-5 cells (100X) (0-1/hpf) 11/13/17 14:04 Ovalocytes SLIGHT = 2-5 cells (100X) (0-1/hpf) 11/13/17 14:04 Bite Cells SLIGHT = 2-5 cells (100X) (0-1/hpf) 11/14/17 04:21 Elliptocytes SLIGHT = 2-5 cells (100X) (0-1/hpf) 11/16/17 04:00 Schistocytes SLIGHT = 2-5 cells (100X) (0-1/hpf) 11/16/17 04:00 PT 17.7 SEC (12.0-14.7) H 11/14/17 01:20 INR 1.4 11/14/17 01:20 APTT 31.5 SEC (22.9-36.1) 11/14/17 01:20 Specimen Type ARTERIAL 11/16/17 07:05 Puncture Site RR 11/16/17 07:05 Bicarbonate Actual 19.4 mEq/L (22-26) L 11/16/17 07:05 ABG pH 7.37 (7.35-7.45) 11/16/17 07:05 ABG pCO2 34.2 mmHg (35.0-45.0) L 11/16/17 07:05 ABG pO2 89.0 mmHg (80.0-100.0) 11/16/17 07:05 ABG O2 Sat Calc/[place] 97.4 % (94.0-100.0) 11/16/17 07:05 ABG O2 Content 10.1 vol% (17.5-23.0) L 11/16/17 07:05 ABG Base Excess -5.3 mEq/L (0 (+/-) 2.5) L 11/16/17 07:05 ABG Hematocrit 25.9 % (36.0-47.0) L 11/16/17 07:05 ABG Hemoglobin 7.4 g/dL (12.0-16.0) L 11/16/17 07:05 ABG Oxyhemoglobin 96.0 % (94.0-97.0) 11/16/17 07:05 ABG Carboxyhemoglobin 1.1 gm% (0.0-3.0) 11/16/17 07:05 ABG Methemoglobin 0.2 gm% (0.0-1.5) 11/16/17 07:05 ABG Deoxyhemoglobin 3.7 % (0.0-5.0) 11/14/17 01:30 Amarjit Test POSITIVE 11/16/17 07:05 A-a O2 Gradient 151.450 (0-20) H 11/16/17 07:05 Sodium 138 mmol/L (135-148) 11/16/17 07:05 Potassium 3.7 mmol/L (3.70-5.30) 11/16/17 07:05 Chloride 106 mmol/L (98-106) 11/16/17 07:05 Ionized Calcium 1.3 mmol/L (1.12-1.30) 11/16/17 07:05 Mode of Support SIMV 11/16/17 07:05 Mechanical Rate 16 min 11/16/17 07:05 Inspired O2 40 % 11/16/17 07:05 Tidal Volume 450 ml 11/16/17 07:05 Pressure Support 10 cmH2O 11/16/17 07:05 PEEP or CPAP 5.0 cmH2O 11/16/17 07:05 Sodium 136 mmol/L (136-145) 11/16/17 04:00 Potassium 3.9 mmol/L (3.5-5.1) 11/16/17 04:00 Chloride 111 mmol/L (98-107) H 11/16/17 04:00 Carbon Dioxide 19 mmol/L (23-31) L 11/16/17 04:00 Anion Gap 10 mmol/L (10-20) 11/16/17 04:00 BUN 44 mg/dL (9.8-20.1) H 11/16/17 04:00 Creatinine 1.67 mg/dL (0.6-1.1) H 11/16/17 04:00 Estimated GFR (MDRD) 29 11/16/17 04:00 Glucose 150 mg/dL (83-110) H 11/16/17 04:00 POC Glucose 171 mg/dL (70-110) H 11/16/17 09:14 Hemoglobin A1c 4.7 % (4.0-6.0) 11/10/17 10:10 Calcium 8.6 mg/dL (7.8-10.44) 11/16/17 04:00 Phosphorus 5.9 mg/dL (2.3-4.7) H 11/14/17 01:20 Magnesium 1.7 mg/dL (1.6-2.6) 11/14/17 01:20 Total Bilirubin 1.1 mg/dL (0.2-1.2) 11/14/17 04:21 AST 42 U/L (5-34) H 11/14/17 04:21 ALT 18 U/L (8-55) 11/14/17 04:21 Alkaline Phosphatase 45 U/L (40-150) 11/14/17 04:21 CK-MB (CK-2) 2.9 ng/mL (0-6.6) 11/13/17 14:04 Troponin I 0.018 ng/mL (< 0.028) 11/13/17 14:04 B-Natriuretic Peptide 778.1 pg/mL (0-100) H 11/13/17 17:03 Serum Total Protein 4.3 g/dL (6.0-8.3) L 11/14/17 04:21 Albumin 2.3 g/dL (3.4-4.8) L 11/14/17 04:21 Globulin 2.0 g/dL (2.4-3.5) L 11/14/17 04:21 Albumin/Globulin Ratio 1.2 g/dL (1.2-2.2) 11/14/17 04:21 Prealbumin 9.0 mg/dL (14-37) L 11/14/17 01:20 Triglycerides 196 mg/dL (Less than 150) H 11/14/17 01:20 Cholesterol 77 mg/dl (< 200 Desired) 11/14/17 01:20 LDL Cholesterol, Calc 29 mg/dL 11/14/17 01:20 HDL Cholesterol 9 mg/dL (>60 Neg Risk) 11/14/17 01:20 Heart Disease Risk Ratio 8.6 (Less than 4.5) 11/14/17 01:20 Carcinoembryonic Ag 25.34 ng/mL (< or = 5.0) H 11/10/17 10:10 Free T4 0.92 ng/dL (0.70-1.48) 11/13/17 16:55 Free T3 Less than 1.00 pg/mL (1.71-3.71) L 11/13/17 16:55 TSH 3rd Generation 4.4016 uIU/mL (0.35-4.94) 11/13/17 16:55 Cortisol 30.20 ug/dL (See Ranges) 11/14/17 01:20 Urine Color YELLOW (Yellow) 11/13/17 17:55 Urine Clarity CLOUDY (Clear) 11/13/17 17:55 Urine pH 5.0 (5.0-9.0) 11/13/17 17:55 Ur Specific [place] 1.017 (1.002-1.036) 11/13/17 17:55 Urine Protein Negative mg/dL (Neg-Trace) 11/13/17 17:55 Urine Glucose (UA) Negative mg/dL (Negative) 11/13/17 17:55 Urine Ketones Negative mg/dL (Negative) 11/13/17 17:55 Urine Blood Negative (Negative) 11/13/17 17:55 Urine Nitrite Negative (Negative) 11/13/17 17:55 Urine Bilirubin Negative (Negative) 11/13/17 17:55 Urine Urobilinogen 0.2 mg/dL (0.2-1.0) 11/13/17 17:55 Ur Leukocyte Esterase Negative (Negative) 11/13/17 17:55 Urine Creatinine 173.62 mg/dL (47-110) H 11/13/17 03:58 Urine Sodium 26 mmol/L (Not Available) 11/14/17 03:58 - Radiology Interpretation Chest x-ray Status: image reviewed by me (No pneumothorax) Surgery Progress Note: A/P - Problem (1) Peritonitis Current Visit: Yes Code(s): K65.9 - PERITONITIS, UNSPECIFIED Status: Acute Assessment and Plan: Hopefully extubate today. Probably start PO tomorrow if doing well. Vac change tomorrow (2) Pneumothorax on left Current Visit: Yes Code(s): J93.9 - PNEUMOTHORAX, UNSPECIFIED Status: Acute Assessment and Plan: Keep to 20 cm suction today
--- NOTE | 2017-11-16 13:30 | PDOC.PN ---
- Subjective Encounter Start Date: 11/16/17 Encounter Start Time: 13:28 Patient seen at bedside. Extubated successfully today. No overnight events. - Objective MAR Reviewed: Yes Vital Signs & Weight: Vital Signs (12 hours) Temp Pulse Resp BP Pulse Ox 11/16/17 12:27 74 16 99 11/16/17 12:00 98.2 F 97 11/16/17 10:37 95 11/16/17 10:26 78 108/56 L 11/16/17 10:00 18 11/16/17 08:00 99 F 69 20 100 11/16/17 07:03 66 110/47 L 11/16/17 07:00 98.2 F 11/16/17 06:00 18 11/16/17 04:00 98.6 F 11/16/17 02:44 81 Weight Admit Weight 180 lb Weight 204 lb 5.896 oz Most Recent Monitor Data Heart Rate from ECG 75 NIBP 136/56 NIBP BP-Mean 67 Respiration from ECG 14 SpO2 97 I&O: 11/15/17 11/16/17 11/17/17 06:59 06:59 06:59 Intake Total 2723 2882 8 Output Total 1811 2300 715 Balance 912 582 -707 Result Diagrams: 11/16/17 04:00 11/16/17 04:00 Additional Labs: Accuchecks 11/16/17 11/15/17 09:14 18:41 POC Glucose 171 H 154 H Phys Exam - Physical Examination Constitutional: NAD HEENT: moist MMs Neck: no nodes Respiratory: clear to auscultation bilateral decreased BS on Left hemithorax Cardiovascular: RRR Gastrointestinal: soft Musculoskeletal: pulses present Neurological: moves all 4 limbs Psychiatric: A&O x 3 Dx/Plan (1) Acute respiratory failure Code(s): J96.00 - ACUTE RESPIRATORY FAILURE, UNSP W HYPOXIA OR HYPERCAPNIA Status: Resolved (2) Pneumothorax on left Code(s): J93.9 - PNEUMOTHORAX, UNSPECIFIED Status: Resolved (3) Acute renal failure Status: Acute Qualifiers: Acute renal failure type: unspecified Qualified Code(s): N17.9 - Acute kidney failure, unspecified - Plan cont current plan of care, continue antibiotics, respiratory therapy, DVT proph w/lovenox * Continue chest tube care per GS. Serial Xrays * TPN. Possible start of PO in AM * IV steroids * Continue Maintenance fluids. RAZ improving * IV antibiotics * Wound care/ Vac change in AM * Supportive care
--- NOTE | 2017-11-16 14:34 | PRG ---
DATE OF SERVICE: 11/16/2017 SUBJECTIVE: This morning, she is much more awake, alert, responsive, in no distress. Sedation was h eld. She was placed on CPAP. OBJECTIVE: VITAL SIGNS: Pulse 80, blood pressure 108/80. CHEST: Decreased breath sounds, no wheezing. CARDIAC: Normal S1, S2, no gallops. ABDOMEN: Soft, no masses. LABORATORY DATA: X-ray shows right-sided effusion. White count 15,000, H and H 7 and 24, platelet c ount is normal. PO2 is 89, pCO2 is 34, pH 7.37, rate of 16, creatinine 1.7. IMPRESSION: 1. Respiratory failure. 2. Left pneumothorax. 3. Right pleural effusion. 4. Status post multiple laps. 5. Renal failure. 6. Severe deconditioning. PLAN: She is on TPN. I am going to hold sedation, try and wean, and extubate. Continue antibiotics and stress dose of steroids. Incidentally her cortisol level was 30. Her TSH was 4.4. [id number] critical care time.
[2017-11-16] MEDS: Enoxaparin Sodium 40 MG/0.4 ML SYRINGE SC SCH (20:36)
[2017-11-16] MEDS: Mirtazapine 30 MG TAB PO SCH (20:37)
[2017-11-16] MEDS: MAGNESIUM SULFATE IV SCH ×5 (22:41)
[2017-11-16] MEDS: [UNRECOGNIZED DRUG - OTHER] IV SCH ×5 (22:41)
[2017-11-16] MEDS: SODIUM ACETATE IV SCH ×5 (22:41)
[2017-11-16] MEDS: MULTIVITAMINS IV SCH ×5 (22:41)
[2017-11-17] MEDS: Hydrocortisone Sod Succ/PF 100 mg/2 ml Vial IVP SCH ×5 (01:00→23:22)
[2017-11-17] MEDS: Piperacillin/Tazobactam 2.25 GM in Sodium Chloride 0.9% 100 ML IVPB SCH (05:30)
[2017-11-17 05:52] LABS: Band 9 % (5-11); Hemoglobin 8.2 g/dL (12.0-16.0); Lymphocytes 13 % (21-51); MDiff Complete? YES; Mean Corpuscular HGB CONC 30.1 g/dL (32.0-36.0); Mean Corpuscular Hemoglobin 25.8 pg (27.0-31.0); Mean Corpuscular Volume 85.8 fl (81.0-99.0); Mean Platelet Volume 8.2 fL (7.4-10.4); Metamyelocyte 7 % (0-0); Monocytes 8 % (0-10); Myelocyte 6 % (0-0); Neutrophil 57 % (42-75); Nucleated RBC 1 % (0); PLT Morphology Comment Appears Adequate; Platelet Count 280 thou/uL (130-400); Red Blood Cell (RBC) Count 3.16 mill/uL (4.20-5.40); White Blood Cell (WBC) Count 24.1 thou/uL (4.8-10.8)
[2017-11-17 06:04] LABS: Anion Gap 9 mmol/L (10-20); BUN (Urea Nitrogen) 41 mg/dL (9.8-20.1); Calc. Creatinine Clearance 60 mL/min (70-130); Calcium 8.7 mg/dL (7.8-10.44); Carbon Dioxide 23 mmol/L (23-31); Chloride 111 mmol/L (98-107); Estimated GFR-MDRD 53; Glucose 137 mg/dL (83-110); Potassium 3.4 mmol/L (3.5-5.1); Sodium 140 mmol/L (136-145)
--- NOTE | 2017-11-17 07:05 | PRG ---
DATE OF SERVICE: 11/17/2017 SUBJECTIVE: Ms. Chou is an 87-year-old white female who was seen by the Renal Service secondary to an acute kidney injury from a hemodynamic mediated renal dysfunction. She was gently volume repl etion. It improved her renal function. She has also undergone to the OR for closure of an anastomot ic leak. Currently, this morning she is extubated. No new complaints. PHYSICAL EXAMINATION: VITAL SIGNS: Blood pressure 146/54, heart rate 72, respiratory rate 17, pulse ox 95%. GENERAL: Awake, alert, supine, comfortable. SKIN: Adequate turgor. HEENT: Slightly pale conjunctivae, anicteric sclerae. NECK: No neck mass, no carotid bruits, no JVD. LUNGS: Clear breath sounds. HEART: Normal sinus rhythm. No murmur, no gallops, no rubs. ABDOMEN: Globular, soft, nontender, no masses. EXTREMITIES: No edema, no deformities. MEDICATIONS: 11/17/2017 - Reviewed. LABORATORY: 11/17/2017 - White count is noted at 24.1, hemoglobin 8.2, sodium 140, potassium 3.4, ch loride 111, carbon dioxide 23, BUN 41, creatinine 1.0, calcium 8.7. ASSESSMENT AND PLAN: Acute kidney injury secondary to hemodynamically mediated renal dysfunction, m uch improved with volume repletion. Currently on TPN. Due to the much improved renal function, we w ill be signing off.
[2017-11-17 07:45] LABS: Magnesium 2.2 mg/dL (1.6-2.6)
[2017-11-17 07:51] LABS: Phosphorus 1.3 mg/dL (2.3-4.7)
--- NOTE | 2017-11-17 08:07 | RAD ---
CHEST 1 VIEW: Date: 11/17/17 HISTORY: Dyspnea. Follow-up. COMPARISON: 11/16/17. FINDINGS: Cardiac silhouette is magnified by projection. Pulmonary vasculature remains engorged, but slightly i mproved. Bibasilar infiltrates are less pronounced than on the prior study. Hazy opacity at the bases has improved. Mediastinum remains midline. Endotracheal catheter is no longer visible. Other lines a nd tubes appear unchanged in position. event planning intern leads overlie the chest. IMPRESSION: Interval extubation. Improved aeration of each lung base. POS: [facility]
[2017-11-17] MEDS: Pantoprazole 40 MG VIAL IVP SCH (08:50)
[2017-11-17] MEDS ORDERED: Potassium Phosphate 15 MMOL in Sodium Chloride 0.9% 250 ML 250 ML IVPB SCH (09:00)
--- NOTE | 2017-11-17 09:19 | PRG ---
DATE OF SERVICE: 11/17/2017 Ms. Chou post extubation is doing well. PHYSICAL EXAMINATION: VITAL SIGNS: Sats 100%, blood pressure 119/40, pulse 82, temperature 98. Denies any pain or difficu lty breathing. CHEST: Decreased breath sounds, no wheezing. CARDIAC: Normal S1-S2. No gallops. White count 24,000, H&H 8 and 27, platelet count 280. Electrolytes are normal. BUN is normal. IMPRESSION: 1. Azotemia, improved. 2. Respiratory failure, resolved. 3. Spontaneous pneumothorax, improved. 4. Right-sided pleural effusion. 5. Status post lap. 6. Peritonitis. PLAN: Continue PT, hopefully once her CT is removed she can be transferred out of the ICU. I will follow.
[2017-11-17] MEDS ORDERED: Piperacillin/Tazobactam 3.375 GM in Sodium Chloride 0.9% 100 ML IVPB SCH (12:00)
--- NOTE | 2017-11-17 12:13 | PDOC.PN ---
- Subjective Encounter Start Date: 11/17/17 Encounter Start Time: 12:30 Subjective: Patient without complaint. No abdominal pain. No respiratory difficulty -: overnight. - Objective MAR Reviewed: Yes Vital Signs & Weight: Vital Signs (12 hours) Temp Pulse Resp Pulse Ox 11/17/17 11:53 98.6 F 11/17/17 10:52 98.6 F 11/17/17 07:16 98.0 F 85 17 100 11/17/17 07:15 97 11/17/17 07:13 72 14 97 11/17/17 07:00 98.0 F 11/17/17 04:00 100.1 F H 11/17/17 01:20 71 14 97 Weight Admit Weight 180 lb Weight 204 lb 5.896 oz Most Recent Monitor Data Heart Rate from ECG 86 NIBP 149/71 NIBP BP-Mean 106 Respiration from ECG 17 SpO2 95 I&O: 11/16/17 11/17/17 11/18/17 06:59 06:59 06:59 Intake Total 2882 2795 50 Output Total 2300 2625 680 Balance 582 170 -630 Result Diagrams: 11/17/17 05:15 11/17/17 05:15 Additional Labs: Accuchecks 11/17/17 11/17/17 11/16/17 10:06 05:28 16:22 POC Glucose 154 H 155 H 142 H Phys Exam - Physical Examination Constitutional: NAD HEENT: moist MMs coarse breath sounds bilaterally, decent air movement Cardiovascular: RRR Gastrointestinal: positive bowel sounds ostomy in place with dark stool Neurological: non-focal, moves all 4 limbs Psychiatric: normal affect, A&O x 3 Dx/Plan (1) Acute respiratory failure Code(s): J96.00 - ACUTE RESPIRATORY FAILURE, UNSP W HYPOXIA OR HYPERCAPNIA Status: Resolved (2) Pneumothorax on left Code(s): J93.9 - PNEUMOTHORAX, UNSPECIFIED Status: Acute Comment: Chest tube in place (3) Acute renal failure Status: Resolved Qualifiers: Acute renal failure type: unspecified Qualified Code(s): N17.9 - Acute kidney failure, unspecified (4) Hypokalemia Code(s): E87.6 - HYPOKALEMIA Status: Acute Comment: replacing IV (5) S/P colectomy Status: Acute Comment: for fungating mass removal - Plan cont current plan of care, continue antibiotics * . - Discharge Day Encounter end time: 12:45
--- NOTE | 2017-11-17 12:50 | PRG ---
DATE OF SERVICE: 11/17/2017 SUBJECTIVE: Ms. Chou is postoperative day #7 from laparoscopic hand-assisted right hemicolectomy. Her final pathology was T3 , N2 with the tumor being 11.5 cm in maximum dimension and 4 of 20 lymph nodes being positive. Unfortunately, she had evidence of a leak that manifested as she became progressively septic on the evening of postoperative day #3. She was treated by Dr. Mak with a laparoscopic evaluation. The staple line dehiscence was repaired and the patient was given a proximal loop ileostomy. She underwent extensive washout with placement of drains. She has been managed in the intensive care unit subsequently. She is now 3 days out from her washout. She was extubated yesterday and is breathing comfortably. She developed a left pneumothorax for which a chest tube was placed a couple of days ago. Her chest x-ray shows no recurrent pneumothorax, but the chest tube is still to suction at this time. She has a couple of drains in her abdomen that are draining clear serosanguineous fluid. She had concern regarding renal failure when she first became septic and her creatinine jumped up to as high as 4.0. However, sepsis resolved and her hydration improved. Her creatinine today is 1.0. She does have a femoral Trialysis catheter that was placed. This will be removed today. She has no significant complaints. She denies severe pain, denies shortness of breath. OBJECTIVE: VITAL SIGNS: On examination, she is afebrile. Her maximum temperature was 100.1 last night. Pulse is stable in the 70s. Blood pressure is 149/55. Urine output last 24 hours is 1750 mL. Drain output was 160 from one and 60 from the other. Her ileostomy is putting out bilious fluid. LUNGS: Clear to auscultation. HEART: Regular rate and rhythm. ABDOMEN: Soft. Drain sites are clean, VAC in the right upper quadrant incision is intact. Ostomy is viable in the right lower abdomen. There are no bowel sounds that are appreciable. ASSESSMENT AND PLAN: The patient is now stable 1 week out from her surgery and 3 days out from her washout. She appears to be stable for transfer to the floor. We will continue nasogastric tube for now and continue TPN and antibiotics. Physical therapy will be reinstituted. [facility]
[2017-11-17] MEDS: Piperacillin/Tazobactam 3.375 GM in Sodium Chloride 0.9% 100 ML IVPB SCH ×2 (14:02→21:31)
--- NOTE | 2017-11-17 17:12 | PDOC.CTH ---
Cardiology Progress Note - Subjective She is extubated. No chest pain, SOB at baseline. - Objective Vital Signs Temp Pulse Resp Pulse Ox 11/17/17 15:43 98.6 F 80 18 92 L 11/17/17 13:50 80 18 98 11/17/17 11:53 98.6 F 11/17/17 10:52 98.6 F 11/17/17 07:16 98.0 F 85 17 100 11/17/17 07:15 97 11/17/17 07:13 72 14 97 11/17/17 07:00 98.0 F Admit Weight 180 lb Weight 204 lb 5.896 oz 11/16/17 11/17/17 11/18/17 06:59 06:59 06:59 Intake Total 2882 2795 1055 Output Total 2300 2625 945 Balance 582 170 110 - Physical Examination General/Neuro: alert & oriented x3, NAD Neck: no JVD present Lungs: unlabored respirations Heart: RRR Abdomen: other: (Drains in place. ) Extremities: + edema B (1+) - Telemetry Telemetry Rhythm: NSR - Labs Result Diagrams: 11/17/17 05:15 11/17/17 05:15 Troponin/CKMB CK-MB (CK-2) 2.9 ng/mL (0-6.6) 11/13/17 14:04 Troponin I 0.018 ng/mL (< 0.028) 11/13/17 14:04 - Assessment/Plan 1. Frequent PAC's resolved. 2. Acute Kidney injury. 3. S/P colectomy 4. Anastomotic leak s/p repair. 5. Colon Ca s/p resection. PLAN: - Continue supportive care. - Replace K - Will sign off. Please call with any questions.
[2017-11-17] MEDS: Fentanyl 100 MCG/2 ML VIAL SLOW IVP PRN ×2 (18:13→21:30)
[2017-11-17] MEDS: Enoxaparin Sodium 40 MG/0.4 ML SYRINGE SC SCH (21:31)
[2017-11-17] MEDS ORDERED: POTASSIUM PHOSPHATE IV SCH ×6 (22:00)
[2017-11-17] MEDS ORDERED: SODIUM ACETATE IV SCH ×6 (22:00)
[2017-11-17] MEDS ORDERED: [UNRECOGNIZED DRUG - OTHER] IV SCH ×6 (22:00)
[2017-11-18] MEDS: Fentanyl 100 MCG/2 ML VIAL SLOW IVP PRN ×3 (01:56→12:24)
[2017-11-18] MEDS: Piperacillin/Tazobactam 3.375 GM in Sodium Chloride 0.9% 100 ML IVPB SCH ×4 (02:09→20:55)
[2017-11-18 04:25] LABS: Anion Gap 10 mmol/L (10-20); BUN (Urea Nitrogen) 38 mg/dL (9.8-20.1); Calc. Creatinine Clearance 75 mL/min (70-130); Calcium 8.6 mg/dL (7.8-10.44); Carbon Dioxide 25 mmol/L (23-31); Chloride 110 mmol/L (98-107); Estimated GFR-MDRD 68; Glucose 144 mg/dL (83-110); Potassium 3.4 mmol/L (3.5-5.1); Sodium 142 mmol/L (136-145)
[2017-11-18 05:06] LABS: Band 13 % (5-11); Hypochromia SLIGHT = 6-15 cells (100X) (0-5/hpf); Lymphocytes 3 % (21-51); MDiff Complete? YES; Mean Corpuscular HGB CONC 31.2 g/dL (32.0-36.0); Mean Corpuscular Hemoglobin 26.7 pg (27.0-31.0); Mean Corpuscular Volume 85.4 fl (81.0-99.0); Mean Platelet Volume 8.4 fL (7.4-10.4); Metamyelocyte 5 % (0-0); Monocytes 11 % (0-10); Myelocyte 2 % (0-0); Neutrophil 66 % (42-75); Nucleated RBC 1 % (0); PLT Morphology Comment Appears Adequate; Platelet Count 332 thou/uL (130-400); RBC Distribution Width 23.1 % (11.5-14.5); Red Blood Cell (RBC) Count 3.38 mill/uL (4.20-5.40); White Blood Cell (WBC) Count 36.6 thou/uL (4.8-10.8)
[2017-11-18] MEDS: Hydrocortisone Sod Succ/PF 100 mg/2 ml Vial IVP SCH ×3 (06:48→17:36)
[2017-11-18] MEDS: Pantoprazole 40 MG VIAL IVP SCH (07:42)
--- NOTE | 2017-11-18 08:37 | RAD ---
CHEST ONE VIEW: History: Chest tube. Pneumothorax. Follow up. Comparison: 11-17-17 FINDINGS: Cardiac silhouette is magnified by projection. Pulmonary vasculature remains upper limits of normal. Left thoracostomy tube has been withdrawn slightly, so that the proximal port lies just lateral to th e chest wall. Left chest wall gas has increased. Patchy bibasilar infiltrates/atelectasis are stable. IMPRESSION: Partial retraction of the left thoracostomy tube, with the side hole outside of the thoracic cavity. Interval increase in left chest wall gas. POS: [facility]
--- NOTE | 2017-11-18 09:56 | CT ---
CT ABDOMEN AND PELVIS WITH IV AND ORAL CONTRAST: History: Abdominal pain and fever. Recent colon surgery after perforation. Comparison: 11-13-17 FINDINGS: Bilateral pleural fluid and basilar atelectasis are present, right greater than left. Extensive left chest wall gas and left thoracotomy tube are partially visualized. Heterogeneous irregular low density lesion within the lateral margin of the spleen is better distingu ished on contrast enhanced exam. Small amount of free fluid is present throughout the abdomen and pel vis. Right lower quadrant ostomy and radiopaque drains are now visible. Minimal free fluid is present . No focal abscess or significant residual free air. Urinary bladder is decompressed by Luu cathete r. Diverticula arise from the remaining colon. There are degenerative changes of the lumbar spine. IMPRESSION: 1. Post-operative changes of the colon. No evidence of intraabdominal complication. 2. Extensive left chest wall gas partially visualized from partial withdraw of left thoracotomy tube. 3. Right pleural fluid. POS: [facility]
--- NOTE | 2017-11-18 11:35 | PDOC.PN ---
- Subjective Encounter Start Date: 11/18/17 Encounter Start Time: 11:33 Patient seen and examined. No new complaints. No overnight events. Transferred to surgical floor. - Objective MAR Reviewed: Yes Vital Signs & Weight: Vital Signs (12 hours) Temp Pulse Resp BP Pulse Ox 11/18/17 07:55 111 H 20 95 11/18/17 04:08 97.8 F 104 H 20 142/72 H 11/18/17 00:47 78 19 93 L 11/18/17 00:15 98.0 F 80 18 117/67 96 Weight Admit Weight 180 lb Weight 204 lb 5.896 oz Most Recent Monitor Data Heart Rate from ECG 80 NIBP 153/67 NIBP BP-Mean 89 Respiration from ECG 22 SpO2 99 I&O: 11/17/17 11/18/17 11/19/17 06:59 06:59 06:59 Intake Total 2795 1055 1200 Output Total 2625 1395 1475 Balance 170 340 -168 Result Diagrams: 11/18/17 03:50 11/18/17 03:50 Additional Labs: Accuchecks 11/18/17 11/17/17 06:49 23:50 POC Glucose 128 H 132 H Phys Exam - Physical Examination Constitutional: NAD Respiratory: no wheezing, no rhonchi chest tube + Cardiovascular: RRR, no rub Gastrointestinal: soft Musculoskeletal: no edema Neurological: moves all 4 limbs Dx/Plan - Plan PT/OT, DVT proph w/lovenox, DVT proph w/SCDs IMPRESSION: 1. HTN 2. HLD 3. Hypokalemia/hypophosphatemia 4. Pneumothorax s/p chest tube 5. Anxiety/Depression 6. Freq PACs - Cardio following 7. RAZ/Hyperkalemia - resolved PLAN: * On TPN * AM labs * Add PRN HTN meds * Cont to monitor * Will follow PRN Review of Systems - Review of Systems Respiratory: negative: Cough, Dry, Shortness of Breath, Hemoptysis, SOB with Excertion, Pleuritic Pain, Sputum, Wheezing Cardiovascular: negative: chest pain, palpitations, orthopnea, paroxysmal nocturnal dyspnea, edema, light headedness - Medications/Allergies Allergies/Adverse Reactions: Allergies Allergy/AdvReac Type Severity Reaction Status Date / Time succinylcholine Allergy Verified 11/14/17 05:07 volatile anesthetic agents Allergy Uncoded 11/14/17 05:08 Medications: Current Medications Albuterol/Ipratropium (Duoneb) 3 ml NEB Q4H PRN PRN Reason: Wheezing Albuterol/Ipratropium (Duoneb) 3 ml NEB [id number] [facility] Last Admin: 11/18/17 07:55 Dose: 3 ml Enoxaparin Sodium (Lovenox) 40 mg SC 2100 [facility] Last Admin: 11/17/17 21:31 Dose: 40 mg Fentanyl (Sublimaze) 25 mcg SLOW IVP Q2H PRN PRN Reason: Pain 1ST LINE Last Admin: 11/18/17 10:27 Dose: 25 mcg Fentanyl (Sublimaze) 50 mcg SLOW IVP Q2H PRN PRN Reason: Pain 2ND LINE Last Admin: 11/17/17 10:38 Dose: 50 mcg Hydralazine HCl (Apresoline) 10 mg SLOW IVP Q4H PRN PRN Reason: SBP > 170 or DBP > 100 Hydrocortisone Sodium Succinate (Solu-Cortef) 50 mg IVP Q6HR [facility] Stop: 11/21/17 18:01 Last Admin: 11/18/17 06:48 Dose: 50 mg Dextrose/Sodium Chloride (D5 1/2 Ns) 500 mls @ 0 mls/hr IV .Q0M [facility] PRN Reason: As Directed Sodium Acetate 100 meq/Potassium Phosphate 30 mmol/Magnesium Sulfate 10 meq/ Multivitamins 10 ml/ TRACE ELEMENT CONCENTRATE 1 ml/Amino Acids/Dextrose/ Fat Emulsion Intravenous 2,123.463 mls @ 88.478 mls/hr IV 2200 [facility] Last Admin: 11/17/17 22:00 Dose: 2,123.463 mls Piperacillin Sod/Tazobactam (Sod 3.375 gm/ Sodium Chloride) 100 mls @ 200 mls/ hr IVPB 0200,0800,1400,2000 [facility] Last Admin: 11/18/17 09:55 Dose: 100 mls Ondansetron HCl (Zofran) 4 mg IVP Q6H PRN PRN Reason: Nausea/Vomiting Last Admin: 11/13/17 15:23 Dose: 4 mg Pantoprazole Sodium (Protonix) 40 mg IVP DAILY [facility] Last Admin: 11/18/17 07:42 Dose: 40 mg Promethazine HCl (Phenergan) 12.5 mg IM Q4H PRN PRN Reason: Nausea/Vomiting Last Admin: 11/13/17 20:05 Dose: 12.5 mg Sodium Chloride (Flush - Normal Saline) 10 ml IVF PRN PRN PRN Reason: Saline Flush
[2017-11-18] MEDS ORDERED: hydrALAZINE 20 MG/ML VIAL SLOW IVP PRN (11:36)
--- NOTE | 2017-11-18 13:46 | PRG ---
DATE OF SERVICE: 11/18/2017 SUBJECTIVE: This morning, she is awake, alert, responsive. Denies any pain, denies shortness of cecilia ath. Though, she still got some bubbling in the chest tube when taking a deep breath and coughing. PHYSICAL EXAMINATION: VITAL SIGNS: Sats are 95% on 3 liters, pulse 111, blood pressure 140/72. CHEST: Decreased breath sounds, no wheezing. CARDIAC: Normal S1, S2. No gallops. ABDOMEN: Soft. No masses. LABORATORY DATA AND IMAGING: White count 36,000, H&H is 9 and 28, platelet count 322. Electrolytes are normal. She had a repeat CT of the abdomen done today, which shows postoperative changes with wh at appears to be a right-sided pleural effusion. Left-sided chest tube in place. IMPRESSION: 1. Status post lap, recurrent infection, sepsis. 2. Left-sided pneumothorax, probably from central line. 3. Bilateral pleural effusions, right greater than left. PLAN: I am still concerned that maybe some air leak, pulmonary shah, otherwise continue CT drainage, neb treatments, supportive care, antibiotics. Cultures are growing H. flu from the sputum.
[2017-11-18] MEDS ORDERED: Iopamidol 370 76% 100 ML VIAL ONE (15:56)
[2017-11-18] MEDS ORDERED: Iopamidol 370 76% 50 ML VIAL FS ONE (15:56)
--- NOTE | 2017-11-18 15:58 | PRG ---
DATE OF SERVICE: 11/18/2017 SUBJECTIVE: Ms. Chou is postoperative day #8 from her laparoscopic right hemicolectomy. She is po stoperative day #5 from her abdominal washout and repair of the anastomotic leak with drainage. She was transferred to the floor yesterday. She has been stable here on the surgical floor. She has no specific complaints. She denies shortness of breath, difficulty breathing, abdominal pain, nausea or vomiting. It was noted that her nasogastric output had decreased and ileostomy output had increased. For this reason, her nasogastric tube was removed earlier today. It was also noted that her white blood cell count had risen significantly. It was 24.1 yesterday and this has gone up to 36.6 today. Her hemogl obin has risen from 8.2 to 9.0. She has a 13% bandemia. For this reason, CT scan of abdomen and pel vis was obtained to ensure that there was no early intra-abdominal evidence of infection or abscess. No such abnormal finding was found. The patient had a chest tube placed on 11/14/2017. This was placed for left pneumothorax. I had placed it to [facility] overnight. Her x-ray today reveals that the proximal port on the chest tube had migrated outside the chest wall. There is no evidence of pneumothorax, but there is signif icant evidence of subcutaneous emphysema and air within the soft tissue on her chest x-ray this morni ng. This afternoon she remains stable from a pulmonary standpoint. She still has subcutaneous emphy sema. It was decided to remove her chest tube and hope that the emphysema relates to the tube having migrated rather than a persistent pneumothorax. Her left-sided chest tube was therefore removed at bedside by myself this afternoon. PHYSICAL EXAMINATION: VITAL SIGNS: She is afebrile with a temperature of 98.0. Her pulse was 111 this morning, but it yoselyn pped back down to 78 during the day. Her blood pressure is a little elevated at 176/67. Her urine o utput for yesterday was about 1900 mL. Her NG output was 100 mL or less for the whole day. Her osto my output was 250 mL for the last 12 hours. LUNGS: Clear to auscultation, but she has substantial left-sided subcutaneous emphysema, which makes it difficult to hear her breath sounds easily. ABDOMEN: Soft and nontender in any quadrant. Bowel sounds are present, but they appear to be hypoac tive. Her drains are putting out clear serous fluid only. There is no biliary or purulent tinge at all. The drainage from her chest tube is also serous in nature. ASSESSMENT AND PLAN: The patient is doing well following her 2 operations. She continues to receive TPN. Her TPN was adjusted today by nutrition and the electrolytes were adjusted by myself. As ment ioned today, her NG tube and chest tube were both removed. I will continue her IV Zosyn at this time . I will start her on intravenous Diflucan as her cultures revealed yeast within her abdomen. Her c ultures also revealed several anaerobic bacteria, which should be well covered by Zosyn. Physical neptali castillo was consulted and will work on increasing the level of her physical activity. Hopefully, I mingo l be able to advance her to a clear liquid diet tomorrow and will plan to remove her Luu catheter i n the near future (tomorrow hopefully).
--- NOTE | 2017-11-18 16:01 | RAD ---
FRONTAL RADIOGRAPH CHEST: Date: 11-18-17 Time: 3:44 p.m. Comparison: 11-18-17 at 7:16 a.m. History: Evaluate chest following chest tube removal. FINDINGS: Stable left sided vascular catheter, distal tip overlying the region of the cavoatrial junction. The chest tube seen on the prior examination on the left has been removed. There is subcutaneous emphysem a within the supraclavicular regions bilaterally, extending into the base of the neck, incompletely a ssessed, increased in volume when compared to the prior exam, particularly on the right. There is sub cutaneous emphysema within the left chest wall, grossly unchanged. There is hazy density in the right lung base suggesting a degree of right pleural fluid. Blunting of left costophrenic angle suggests small volume left pleural effusion as well. IMPRESSION: Increased density in both lung bases suggest pleural fluid and/or volume loss. Subcutaneous emphysema , increased on the right. Status post right chest tube removal. POS: [facility]
[2017-11-18] MEDS: Fluconazole In NaCl,Iso-Osm 200 MG in Premix Bag 1 BAG IVPB SCH ×2 (17:36)
[2017-11-18] MEDS: Enoxaparin Sodium 40 MG/0.4 ML SYRINGE SC SCH (20:56)
[2017-11-18] MEDS ORDERED: [UNRECOGNIZED DRUG - OTHER] IV SCH ×5 (22:00)
[2017-11-18] MEDS ORDERED: POTASSIUM PHOSPHATE IV SCH ×5 (22:00)
[2017-11-18] MEDS ORDERED: SODIUM ACETATE IV SCH ×5 (22:00)
[2017-11-19] MEDS: Hydrocortisone Sod Succ/PF 100 mg/2 ml Vial IVP SCH ×2 (00:06→06:11)
[2017-11-19] MEDS: Piperacillin/Tazobactam 3.375 GM in Sodium Chloride 0.9% 100 ML IVPB SCH ×4 (01:46→23:29)
[2017-11-19 05:08] LABS: Band 12 % (5-11); Hemoglobin 8.7 g/dL (12.0-16.0); Lymphocytes 11 % (21-51); MDiff Complete? YES; Mean Corpuscular HGB CONC 31.5 g/dL (32.0-36.0); Mean Corpuscular Hemoglobin 26.9 pg (27.0-31.0); Mean Corpuscular Volume 85.2 fl (81.0-99.0); Mean Platelet Volume 8.6 fL (7.4-10.4); Metamyelocyte 2 % (0-0); Microcytosis SLIGHT = 6-15 cells (100X) (0-5/hpf); Monocytes 11 % (0-10); Neutrophil 64 % (42-75); PLT Morphology Comment Appears Adequate; Platelet Count 313 thou/uL (130-400); RBC Distribution Width 23.2 % (11.5-14.5); Red Blood Cell (RBC) Count 3.23 mill/uL (4.20-5.40); Target Cells SLIGHT = 2-5 cells (100X) (0-1/hpf)
[2017-11-19 05:19] LABS: Anion Gap 11 mmol/L (10-20); BUN (Urea Nitrogen) 46 mg/dL (9.8-20.1); Calc. Creatinine Clearance 78 mL/min (70-130); Calcium 8.8 mg/dL (7.8-10.44); Carbon Dioxide 25 mmol/L (23-31); Chloride 108 mmol/L (98-107); Estimated GFR-MDRD 71; Glucose 140 mg/dL (83-110); Magnesium 2.2 mg/dL (1.6-2.6); Potassium 3.1 mmol/L (3.5-5.1); Sodium 141 mmol/L (136-145)
[2017-11-19] MEDS ORDERED: Potassium Chloride 20 MEQ/100 ML PREMIX BAG IVPB SCH (07:30)
[2017-11-19] MEDS ORDERED: Potassium Chloride 20 MEQ in Sodium Chloride 0.9% 250 ML 250 ML IVPB SCH (08:00)
[2017-11-19] MEDS: Pantoprazole 40 MG VIAL IVP SCH (08:27)
[2017-11-19] MEDS ORDERED: Potassium Chloride 20 MEQ TAB PO SCH (09:00)
--- NOTE | 2017-11-19 10:07 | PRG ---
DATE OF SERVICE: 11/19/2017 Ms. Chou is postoperative day #9 from laparoscopic right hemicolectomy. She is postoperative day # 6 from abdominal washout and repair of anastomotic leak with drainage. Yesterday her left chest tube was removed and her nasogastric tube. She denies nausea or vomiting. She denies shortness of breat h. She has no new complaints. PHYSICAL EXAMINATION: VITAL SIGNS: She is afebrile with temperature of 98.1, pulse is 79, blood pressure 155/71. LUNGS: Her lungs appear to be clear to auscultation, but she still has some left-sided subcutaneous emphysema. It is reported that she had right-sided subcutaneous emphysema at the time of her chest x -ray last night. She does not seem to have very much of that on examination today. ABDOMEN: Her abdomen is soft with normoactive bowel sounds. Incisions are healing nicely. The two drains are draining only clear serosanguineous fluid. Ostomy output is bilious and appears to be julio cesar ropriate. LABORATORY STUDIES: Her white blood cell count is 33.0 down from 36, hemoglobin is 8.7, platelet cou nt is 313. Her basic metabolic panel shows her potassium is low at 3.1. It appears that potassium i s written for with her TPN, may not have been included in her bag. Her BUN and creatinine are still stable. Her magnesium and phosphorus levels are normal. ASSESSMENT: She continues to make progress. Today, I will start her on clear liquid diet and remove her Luu catheter. I will ask Case Management to become involved with discharge planning, probably to a assisted facility. Her hypokalemia will be addressed with oral potassium for now. Hope fully, we will be able to begin to wean her TPN starting tomorrow and increase her activity. If all goes well she should be stable for discharge by the end of this week.
[2017-11-19] MEDS: Fentanyl 100 MCG/2 ML VIAL SLOW IVP PRN ×3 (10:34→23:47)
--- NOTE | 2017-11-19 12:08 | RAD ---
CHEST ONE VIEW: History: Chest tube, pneumothorax. Comparison: Prior day. FINDINGS: No thoracostomy tube is seen on this examination. IJ central venous catheter is present with tip at t he mid SVC. There are bibasilar opacities, small effusions. Emphysema is similar. IMPRESSION: No significant change in the radiographic appearance of the chest. POS: [facility]
[2017-11-19] MEDS ORDERED: FAT EMULSION IV SCH ×9 (14:00)
[2017-11-19] MEDS ORDERED: SODIUM ACETATE IV SCH ×9 (14:00)
[2017-11-19] MEDS ORDERED: [UNRECOGNIZED DRUG - OTHER] IV SCH ×9 (14:00)
[2017-11-19] MEDS ORDERED: POTASSIUM ACETATE IV SCH ×9 (14:00)
--- NOTE | 2017-11-19 14:30 | PRG ---
DATE OF SERVICE: 11/19/2017 SUBJECTIVE: Sierra Chou this morning is awake, alert, responsive, in no distress, no pain, no giacomo rtness of breath, sats are 100% on room air. OBJECTIVE: VITAL SIGNS: Blood pressure 158/76, respiratory rate 20, temperature 98. CHEST: Decreased breath sounds, no wheezing. CARDIAC: Normal S1, S2, no gallops. ABDOMEN: Soft, no masses. LABORATORY DATA: White count is still elevated at 33, H&H 8 and 27, platelet count normal. Electrol ytes are normal. IMPRESSION: 1. Status post left pneumothorax. 2. Respiratory failure. 3. Peritonitis. 4. Leukocytosis. PLAN: Continue nebs. Continue broad-spectrum antibiotics. Discontinue steroids. Will follow.
[2017-11-19] MEDS: Enoxaparin Sodium 40 MG/0.4 ML SYRINGE SC SCH (21:30)
[2017-11-19] MEDS: Fluconazole In NaCl,Iso-Osm 200 MG in Premix Bag 1 BAG IVPB SCH ×4 (23:28→23:29)
[2017-11-20] MEDS: Piperacillin/Tazobactam 3.375 GM in Sodium Chloride 0.9% 100 ML IVPB SCH ×4 (03:43→21:34)
[2017-11-20 04:52] LABS: Anion Gap 10 mmol/L (10-20); BUN (Urea Nitrogen) 49 mg/dL (9.8-20.1); Calc. Creatinine Clearance 80 mL/min (70-130); Calcium 8.7 mg/dL (7.8-10.44); Carbon Dioxide 25 mmol/L (23-31); Chloride 110 mmol/L (98-107); Estimated GFR-MDRD 73; Glucose 142 mg/dL (83-110); Magnesium 2.1 mg/dL (1.6-2.6); Phosphorus 2.9 mg/dL (2.3-4.7); Potassium 3.2 mmol/L (3.5-5.1); Sodium 142 mmol/L (136-145)
[2017-11-20 05:14] LABS: Anisocytosis SLIGHT = 6-15 cells (100X) (0-5/hpf); Band 8 % (5-11); Eosinophils 2 % (0-10); Lymphocytes 8 % (21-51); MDiff Complete? YES; Mean Corpuscular HGB CONC 29.8 g/dL (32.0-36.0); Mean Corpuscular Hemoglobin 25.3 pg (27.0-31.0); Mean Corpuscular Volume 84.8 fl (81.0-99.0); Mean Platelet Volume 9.1 fL (7.4-10.4); Monocytes 4 % (0-10); Neutrophil 78 % (42-75); Platelet Count 383 thou/uL (130-400); Polychromasia SLIGHT = 2-3 cells (100X) (0-2/hpf); RBC Distribution Width 23.1 % (11.5-14.5); Red Blood Cell (RBC) Count 3.58 mill/uL (4.20-5.40); Target Cells SLIGHT = 2-5 cells (100X) (0-1/hpf); White Blood Cell (WBC) Count 33.6 thou/uL (4.8-10.8)
[2017-11-20] MEDS: Fentanyl 100 MCG/2 ML VIAL SLOW IVP PRN (05:46)
[2017-11-20] MEDS ORDERED: Potassium Chloride 20 MEQ TAB PO SCH ×2 (07:45→12:00)
[2017-11-20] MEDS ORDERED: Amiodarone In Dextrose 200 ML IVPB SCH (09:15)
--- NOTE | 2017-11-20 09:40 | PRG ---
DATE OF SERVICE: 11/20/2017 This morning she denies any pain or discomfort. She is in SVT at 150. Amiodarone has been initiated . She is be transferred to a monitored bed. PHYSICAL EXAMINATION: VITAL SIGNS: Sats are 95, temperature 96, blood pressure 157/67. CHEST: Chest reveals decreased breath sounds, bilateral crackles. CARDIAC: SVT. ABDOMEN: Soft. LABORATORY DATA: White count 13,000, H&H 9 and 30, platelet count normal. Electrolytes are normal. IMPRESSION: 1. Supraventricular tachycardia. 2. Respiratory failure. 3. Status post lap. Continue antibiotics. Continue supportive care. I will follow.
--- NOTE | 2017-11-20 09:40 | PDOC.PN ---
- Subjective Encounter Start Date: 11/20/17 Encounter Start Time: 09:00 Patient seen and examined. RN called for tachycardia - EKG showed Afib with RVR. No overnight events - Objective MAR Reviewed: Yes Vital Signs & Weight: Vital Signs (12 hours) Temp Pulse Resp BP Pulse Ox 11/20/17 08:48 96.9 F L 150 H 22 H 115/67 95 11/20/17 06:09 95 11/20/17 06:05 70 20 95 11/20/17 04:39 95 11/20/17 03:41 97.7 F 86 20 150/74 H 96 11/20/17 01:40 88 18 96 11/19/17 23:46 97.9 F 60 18 168/79 H 94 L Weight Admit Weight 180 lb Weight 218 lb 4.122 oz Most Recent Monitor Data Heart Rate from ECG 80 NIBP 153/67 NIBP BP-Mean 89 Respiration from ECG 22 SpO2 99 I&O: 11/19/17 11/20/17 11/21/17 06:59 06:59 06:59 Intake Total 1200 1680 Output Total 1770 1525 Balance -570 155 Result Diagrams: 11/20/17 04:15 11/20/17 04:15 Additional Labs: Accuchecks 11/20/17 11/19/17 11/19/17 05:50 20:46 17:11 POC Glucose 165 H 131 H 134 H 11/19/17 12:18 POC Glucose 138 H EKG Reviewed by me: Yes (Afib with RVR) Phys Exam - Physical Examination Constitutional: NAD Respiratory: no wheezing, no rhonchi Cardiovascular: no rub, irregular Gastrointestinal: soft, non-tender, positive bowel sounds Musculoskeletal: no edema Neurological: moves all 4 limbs Psychiatric: A&O x 3 Dx/Plan - Plan DVT proph w/lovenox, DVT proph w/SCDs IMPRESSION: 1. Afib with RVR 2. HLD 3. Hypokalemia/hypophosphatemia 4. Pneumothorax s/p chest tube 5. Anxiety/Depression 6. HTN 7. RAZ/Hyperkalemia - resolved PLAN: * I discussed with Rohan - Will start Amiodarone drip - No bolus * Anticoag per Cardio * On TPN * Replace Potassium * AM labs * Transfer to tele * Cont to monitor * Will follow PRN Review of Systems - Review of Systems Respiratory: negative: Cough, Dry, Shortness of Breath, Hemoptysis, SOB with Excertion, Pleuritic Pain, Sputum, Wheezing Cardiovascular: palpitations. negative: chest pain, orthopnea, paroxysmal nocturnal dyspnea, edema, light headedness - Medications/Allergies Allergies/Adverse Reactions: Allergies Allergy/AdvReac Type Severity Reaction Status Date / Time succinylcholine Allergy Verified 11/14/17 05:07 volatile anesthetic agents Allergy Uncoded 11/14/17 05:08 Medications: Current Medications Albuterol/Ipratropium (Duoneb) 3 ml NEB Q4H PRN PRN Reason: Wheezing Albuterol/Ipratropium (Duoneb) 3 ml NEB T2VT-SH [facility] Last Admin: 11/20/17 06:05 Dose: 3 ml Enoxaparin Sodium (Lovenox) 40 mg SC 2100 [facility] Last Admin: 11/19/17 21:30 Dose: 40 mg Fentanyl (Sublimaze) 25 mcg SLOW IVP Q2H PRN PRN Reason: Pain 1ST LINE Last Admin: 11/20/17 05:46 Dose: 25 mcg Fentanyl (Sublimaze) 50 mcg SLOW IVP Q2H PRN PRN Reason: Pain 2ND LINE Last Admin: 11/17/17 10:38 Dose: 50 mcg Hydralazine HCl (Apresoline) 10 mg SLOW IVP Q4H PRN PRN Reason: SBP > 170 or DBP > 100 Hydralazine HCl (Apresoline) 5 mg SLOW IVP Q4H PRN PRN Reason: SBP Greater Than 180 Fat Emulsion Intravenous 250 ml/ Sodium Acetate 80 meq/Potassium Acetate 20 meq/ Potassium Phosphate 30 mmol/Calcium Gluconate 10 meq/Magnesium Sulfate 10 meq/ Multivitamins 10 ml/ Dextrose/Water/ Sterile Water/ Amino Acids 2,024.1 mls @ 84.342 mls/hr IV 1400 [facility] Last Admin: 11/19/17 14:02 Dose: 2,024.2021 mls Piperacillin Sod/Tazobactam (Sod 3.375 gm/ Sodium Chloride) 100 mls @ 200 mls/ hr IVPB 0400,1000,1600,2200 [facility] Last Admin: 11/20/17 03:43 Dose: 100 mls Fluconazole/Sodium Chloride (200 mg/ Device) 100 mls @ 100 mls/hr IVPB 2359 [facility] Last Admin: 11/19/17 23:28 Dose: 100 mls Amiodarone HCl 450 mg/Miscellaneous Medication 1 each/ Dextrose/Water 259 mls @ 0 mls/hr IVPB INF REBEKAH; As Directed PRN Reason: Protocol Potassium Chloride 40 meq/ (Device) 100 mls @ 25 mls/hr IVPB ONE REBEKAH Ondansetron HCl (Zofran) 4 mg IVP Q6H PRN PRN Reason: Nausea/Vomiting Last Admin: 11/13/17 15:23 Dose: 4 mg Pantoprazole Sodium (Protonix) 40 mg IVP DAILY [facility] Last Admin: 11/19/17 08:27 Dose: 40 mg Promethazine HCl (Phenergan) 12.5 mg IM Q4H PRN PRN Reason: Nausea/Vomiting Last Admin: 11/13/17 20:05 Dose: 12.5 mg Sodium Chloride (Flush - Normal Saline) 10 ml IVF PRN PRN PRN Reason: Saline Flush
--- NOTE | 2017-11-20 09:50 | PRG ---
DATE OF SERVICE: 11/20/2017 SUBJECTIVE: Ms. Chou is postoperative day #10 from laparoscopic right hemicolectomy, postop day #6 from abdominal washout, repair of anastomotic leak. She seemed to be doing well yesterday, but toda y, she has developed atrial fibrillation with rapid ventricular response with a rate of about 155 cur rently. She also vomited this morning. She seemed to be tolerating her clear liquid diet well yeste rday with excellent ostomy output. She denies any shortness of breath, chest pain, abdominal pain. PHYSICAL EXAMINATION: VITAL SIGNS: She remains afebrile. Her pulse had still been in the 70s, but is 155 currently. Bloo d pressure is 115/67 while she is tachycardic. LUNGS: Clear to auscultation. She still has some subcutaneous emphysema primarily on the left. ABDOMEN: Soft and nontender. Incisions appear to be healing nicely. Bowel sounds are present and n ormoactive. Ostomy is viable in the right lower abdomen. LABORATORY STUDIES: Her white blood cell count remains elevated at 33.6 with hemoglobin of 9.0. Her bandemia has improved as her band count dropped from 12 to 8, but she still has a bit of a left shif t with 78 neutrophils. Her chemistry profile reveals persistent hypokalemia with potassium of 3.2. Other electrolytes are unremarkable including magnesium and phosphate. ASSESSMENT: Patient who is status post right colectomy. She has developed atrial fibrillation and h as vomited this morning. A chest x-ray and abdominal x-ray are still pending. She is being transfer red to the telemetry floor per her Hospitalist, Dr. Chavis. I had advanced her to a full liquid diet. Now, decrease her back down to a clear liquid diet. Continue TPN and antibiotics for right now. H er potassium will need to be supplemented as this is certainly a risk factor for arrhythmias.
[2017-11-20 09:53] LABS: Troponin I 0.028 ng/mL (< 0.028)
--- NOTE | 2017-11-20 10:34 | RAD ---
CHEST ONE VIEW: History: Pneumothorax. Follow up. Comparison: 11-19-17 FINDINGS: Cardiac silhouette is magnified by projection. Pulmonary vasculature remains enlarged. Elevation of t he right hemidiaphragm is unchanged. Mediastinum is midline. Left internal jugular central venous catheter remains in place. Extensive chest wall gas throughout the left neck and chest and the right neck is stable. No evidence of pneumothorax. IMPRESSION: Stable post-traumatic appearance of the chest. POS: [facility]
[2017-11-20] MEDS: Pantoprazole 40 MG VIAL IVP SCH (10:36)
--- NOTE | 2017-11-20 10:39 | RAD ---
ABDOMEN ONE VIEW: History: Ileus. Colon surgery. Follow up. FINDINGS: Gas is apparent throughout the colon and rectum. Small dilated gas filled loop of small bowel over th e left abdomen is 5.0 cm greatest diameter. Radiopaque drains overlie the pelvis and right upper quad rant. Metallic clips and radiopaque suture row also overlie the right abdomen. IMPRESSION: 1. Gaseous distention of the small bowel in the left midabdomen may reflect ongoing inflammation. Fin dings are not suggestive of obstruction. POS: [facility]
[2017-11-20] MEDS ORDERED: Potassium Chloride 40 MEQ in Premix Bag 1 BAG IVPB SCH (10:45)
[2017-11-20] MEDS ORDERED: Potassium Chloride 40 MEQ in Sodium Chloride 0.9% 250 ML 250 ML IVPB SCH (10:45)
[2017-11-20 10:50] LABS: pH, Arterial 7.24 (7.35-7.45)
[2017-11-20 10:51] LABS: Actual Bicarbonate (HCO3a) 15.4 mEq/L (22-26); Analyzer IN Cardio OR; Base Excess (BEa) -11.1 mEq/L (0 (+/-) 2.5); CO2 Tension 37.3 mmHg (35.0-45.0); Calcium, Ionized 1.3 mmol/L (1.12-1.30); Hematocrit-ABG 33.1 % (36.0-47.0); Hemoglobin (Hb) 9.3 g/dL (12.0-16.0); O2 Tension (PaO2) 326.3 mmHg (80.0-100.0); Puncture Site ALINE
[2017-11-20] MEDS: Amiodarone HCl 450 MG, Admixture Fee 1 EACH in Dextrose 5% in Water 250 ML IVPB SCH ×6 (11:25→20:14)
[2017-11-20 13:01] LABS: ALT (SGPT) 27 U/L (8-55); AST (SGOT) 28 U/L (5-34); Alkaline Phosphatase 153 U/L (40-150); Bilirubin, Direct 0.5 mg/dL (0.1-0.3); Bilirubin, Total 0.7 mg/dL (0.2-1.2); Protein, Total 4.3 g/dL (6.0-8.3)
[2017-11-20 13:04] LABS: Troponin I 0.061 ng/mL (< 0.028)
[2017-11-20] MEDS: FAT EMULSION IV SCH ×10 (14:41)
[2017-11-20] MEDS: SODIUM ACETATE IV SCH ×10 (14:41)
[2017-11-20] MEDS: POTASSIUM ACETATE IV SCH ×10 (14:41)
[2017-11-20] MEDS: [UNRECOGNIZED DRUG - OTHER] IV SCH ×10 (14:41)
--- NOTE | 2017-11-20 18:49 | PDOC.CTH ---
Cardiology Progress Note - Subjective She had been stable from the CV standpoint. Earlier this morning she went into afib RVR so she was started on an amiodarone drip and was transferred to telemetry. She denies any chest pain, tightness, pressure. - Objective Vital Signs Temp Pulse Resp BP Pulse Ox 11/20/17 15:22 68 20 95 11/20/17 08:48 96.9 F L 150 H 22 H 115/67 95 11/20/17 08:00 96.9 F L 150 H 22 H 95 Admit Weight 180 lb Weight 218 lb 4.122 oz 11/19/17 11/20/17 11/21/17 06:59 06:59 06:59 Intake Total 1200 1680 746 Output Total 1770 1525 110 Balance -570 155 636 - Physical Examination General/Neuro: alert & oriented x3, NAD Neck: no JVD present Lungs: unlabored respirations Heart: other: (Irrgegular) Abdomen: NT/ND Extremities: + edema B (1+) - Telemetry Telemetry Rhythm: NSR, PACs, NS SVT - Labs Result Diagrams: 11/20/17 04:15 11/20/17 04:15 Troponin/CKMB CK-MB (CK-2) 2.9 ng/mL (0-6.6) 11/13/17 14:04 Troponin I 0.070 ng/mL (< 0.028) H 11/20/17 15:34 - Assessment/Plan 1. Afib RVR, resolved. 2. Non sustained SVT 3. Acute Kidney injury. 4. S/P colectomy 5. Anastomotic leak s/p repair. 6. Colon Ca s/p resection. PLAN: - Continue amiodarone drip. - Most likely related to low potassium - Will hold off on anticoagulation for now due to recent surgery. - Replace K aggressively.
--- NOTE | 2017-11-20 19:54 | EKG ---
Test Reason : Blood Pressure : / mmHG Vent. Rate : 160 BPM Atrial Rate : 138 BPM P-R Int : 000 ms QRS Dur : 084 ms QT Int : 286 ms P-R-T Axes : 000 012 061 degrees QTc Int : 466 ms Atrial fibrillation with rapid ventricular response Nonspecific ST and T wave abnormality , probably digitalis effect Abnormal ECG When compared with ECG of 14-NOV-2017 15:38, (Unconfirmed) Atrial fibrillation has replaced Sinus rhythm Vent. rate has increased BY [address] now depressed in Lateral leads Confirmed by SHERINE GARCIA, STia ([id number]) on 11/20/2017 7:54:38 PM Referred By: SONU Confirmed By:DR. Rere BASURTO MD
[2017-11-20] MEDS: Enoxaparin Sodium 40 MG/0.4 ML SYRINGE SC SCH (20:13)
[2017-11-21] MEDS: Fluconazole In NaCl,Iso-Osm 200 MG in Premix Bag 1 BAG IVPB SCH ×4 (00:17→23:25)
[2017-11-21] MEDS: Piperacillin/Tazobactam 3.375 GM in Sodium Chloride 0.9% 100 ML IVPB SCH ×4 (03:46→20:57)
[2017-11-21 05:33] LABS: Anion Gap 12 mmol/L (10-20); BUN (Urea Nitrogen) 47 mg/dL (9.8-20.1); Calc. Creatinine Clearance 86 mL/min (70-130); Calcium 9.1 mg/dL (7.8-10.44); Carbon Dioxide 23 mmol/L (23-31); Chloride 111 mmol/L (98-107); Estimated GFR-MDRD 73; Glucose 128 mg/dL (83-110); Magnesium 2.1 mg/dL (1.6-2.6); Phosphorus 3.5 mg/dL (2.3-4.7); Potassium 3.7 mmol/L (3.5-5.1); Sodium 142 mmol/L (136-145)
[2017-11-21 05:42] LABS: Band 1 % (5-11); Eosinophils 4 % (0-10); Hemoglobin 9.5 g/dL (12.0-16.0); Lymphocytes 8 % (21-51); MDiff Complete? YES; Mean Corpuscular HGB CONC 32.3 g/dL (32.0-36.0); Mean Corpuscular Hemoglobin 27.8 pg (27.0-31.0); Mean Corpuscular Volume 85.9 fl (81.0-99.0); Mean Platelet Volume 9.3 fL (7.4-10.4); Monocytes 3 % (0-10); Neutrophil 84 % (42-75); Platelet Count 318 thou/uL (130-400); RBC Distribution Width 23.5 % (11.5-14.5); Red Blood Cell (RBC) Count 3.42 mill/uL (4.20-5.40); White Blood Cell (WBC) Count 30.4 thou/uL (4.8-10.8)
[2017-11-21] MEDS: Pantoprazole 40 MG VIAL IVP SCH (08:13)
[2017-11-21] MEDS ORDERED: Potassium Chloride 20 MEQ TAB PO SCH (09:00)
[2017-11-21] MEDS ORDERED: Furosemide 20 MG TAB PO SCH (09:00)
--- NOTE | 2017-11-21 09:06 | PRG ---
DATE OF SERVICE: 11/21/2017 SUBJECTIVE: Ms. Chou is postoperative day #11 from laparoscopic right hemicolectomy, postoperative day #7 from abdominal washout and repair of anastomotic leak. She had developed a pneumothorax at o ne point and chest tube was removed uneventfully. She developed atrial fibrillation and yesterday was transferred to the telemetry floor. Her heart rate was 155 at the time of transfer. It is currentl y in the 70s and 80s and she appears to have converted to a regular rhythm. She had been tolerating her diet appropriately with good ileostomy output. She did vomit yesterday with onset the atrial fib rillation. She has had no subsequent emesis. She still has minimal oral intake and remains on TPN. For reasons that are uncertain, her leukocytosis persists and her white blood cell count today is 30. 4, hemoglobin 9.5. Her basic metabolic panel is stable. Her creatinine is normal at 0.75. She did have elevation of troponins with atrial fibrillation onset yesterday with a maximum troponin 0.07. H er albumin level is low at 2.0. PHYSICAL EXAMINATION: VITAL SIGNS: She is afebrile, pulse is 80, blood pressure is 138/65. LUNGS: Clear to auscultation. She seems to have less subcutaneous emphysema. HEART: Her rate is usually regular with occasional irregular beats, consistent with a PAC's. ABDOME N: Her abdomen is soft, nontender, normoactive bowel sounds. I removed her final intra-abdominal dr ain this morning. All output has been clear serous fluid. She still has a wound VAC on her right up per quadrant wound. Her ostomy in the right lower abdomen is viable and functioning well. ASSESSMENT AND PLAN: The patient seems to be stable after her most recent problem (atrial fibrillati on). She is still on an amiodarone drip that is being managed by Cardiology/Hospitalists. I will ad palafox her to a full liquid diet today. She is still receiving full nutrition with TPN. She will nee d to increase her oral intake before we can wean her off TPN. She has not ambulated at all and physi vern therapy will be very important for her in the near future also.
[2017-11-21] MEDS: Fentanyl 100 MCG/2 ML VIAL SLOW IVP PRN (09:23)
--- NOTE | 2017-11-21 09:40 | PRG ---
DATE OF SERVICE: 11/21/2017 Ms. Chou is status post respiratory failure, left-sided pneumothorax and now SVT. She is better, l ess short of breath. PHYSICAL EXAMINATION: VITAL SIGNS: Sats are 95% on 2 liters, temperature 97, pulse 80, respirations 20. CHEST: Chest reveals decreased breath sounds without any wheezing. CARDIAC: Normal S1, S2. LABORATORY DATA: White count 30,000, H&H 9 and 29, platelet count is 318. Electrolytes are normal. Thyroid function normal. IMPRESSION: 1. Marked leukocytosis, status post peritonitis. 2. Supraventricular tachycardia. 3. Pneumothorax. PLAN: She is on Zosyn and Diflucan. I am concerned about her marked leukocytosis which is increased. Clearly one concern is for intra-ab dominal abscess. Pulmonary-shah, she appears to be stable. Heart rate is well controlled. Continue TPN, nutrition, PT. I will follow.
[2017-11-21] MEDS: HYDROcodone/Acetaminophen 5/325 mg Tablet PO PRN ×2 (10:52→16:47)
[2017-11-21] MEDS: FAT EMULSION IV SCH ×10 (14:20)
[2017-11-21] MEDS: SODIUM ACETATE IV SCH ×10 (14:20)
[2017-11-21] MEDS: [UNRECOGNIZED DRUG - OTHER] IV SCH ×10 (14:20)
[2017-11-21] MEDS: POTASSIUM ACETATE IV SCH ×10 (14:20)
--- NOTE | 2017-11-21 18:38 | PDOC.CTH ---
Cardiology Progress Note - Subjective No new issues. Tolerating PO now. - Objective Vital Signs Temp Pulse Pulse Pulse Resp BP BP 11/21/17 16:50 98.2 F 91 21 H 11/21/17 14:10 84 24 H 11/21/17 13:45 79 88 143/64 H 138/65 11/21/17 12:00 98.6 F 79 20 11/21/17 08:24 97.6 F 80 20 11/21/17 08:06 97.6 F 80 20 11/21/17 06:48 11/21/17 06:47 82 20 BP Pulse Ox 11/21/17 16:50 145/65 H 95 11/21/17 14:10 11/21/17 13:45 11/21/17 12:00 143/64 H 95 11/21/17 08:24 95 11/21/17 08:06 138/65 96 11/21/17 06:48 97 11/21/17 06:47 97 Admit Weight 180 lb Weight 219 lb 1 oz 11/20/17 11/21/17 11/22/17 06:59 06:59 06:59 Intake Total 1680 2060 1889 Output Total 1525 815 Balance 155 1245 1889 - Physical Examination General/Neuro: alert & oriented x3 Neck: no JVD present Lungs: unlabored respirations Heart: RRR Abdomen: NT/ND Extremities: + edema B (1+) - Telemetry Telemetry Rhythm: NSR, PAC's - Labs Result Diagrams: 11/21/17 04:35 11/21/17 04:35 Troponin/CKMB CK-MB (CK-2) 2.9 ng/mL (0-6.6) 11/13/17 14:04 Troponin I 0.070 ng/mL (< 0.028) H 11/20/17 15:34 - Assessment/Plan 1. Afib RVR, resolved. 2. Non sustained SVT 3. Acute Kidney injury. 4. S/P colectomy 5. Anastomotic leak s/p repair. 6. Colon Ca s/p resection. PLAN: - Will switrch amiodarone to PO loading. - Most likely related to low potassium - Will hold off on anticoagulation for now due to recent surgery. - Replace K aggressively.
[2017-11-21] MEDS: Amiodarone 200 MG TAB PO SCH (20:41)
[2017-11-21] MEDS: Enoxaparin Sodium 40 MG/0.4 ML SYRINGE SC SCH (20:43)
[2017-11-21] MEDS: Saccharomyces boulardii 250 MG CAP PO SCH (20:56)
--- NOTE | 2017-11-21 21:25 | PDOC.PN ---
- Subjective Encounter Start Date: 11/21/17 Encounter Start Time: 14:20 Patient seen and examined. No new complaints. No overnight events. On Amiodarone drip - now in SR - Objective MAR Reviewed: Yes Vital Signs & Weight: Vital Signs (12 hours) Temp Pulse Pulse Pulse Resp BP BP 11/21/17 19:01 79 22 H 11/21/17 16:50 98.2 F 91 21 H 11/21/17 14:10 84 24 H 11/21/17 13:45 79 88 143/64 H 138/65 11/21/17 12:00 98.6 F 79 20 BP Pulse Ox 11/21/17 19:01 11/21/17 16:50 145/65 H 95 11/21/17 14:10 11/21/17 13:45 11/21/17 12:00 143/64 H 95 Weight Admit Weight 180 lb Weight 219 lb 1 oz Most Recent Monitor Data Heart Rate from ECG 80 NIBP 153/67 NIBP BP-Mean 89 Respiration from ECG 22 SpO2 99 I&O: 11/20/17 11/21/17 11/22/17 06:59 06:59 06:59 Intake Total 1680 2060 1889 Output Total 1525 815 Balance 155 1245 1889 Result Diagrams: 11/21/17 04:35 11/21/17 04:35 Additional Labs: Accuchecks 11/21/17 11/21/17 11/21/17 20:37 16:57 11:34 POC Glucose 114 H 107 116 H 11/21/17 05:58 POC Glucose 141 H EKG Reviewed by me: Yes (Tele SR) Phys Exam - Physical Examination Constitutional: NAD Respiratory: no wheezing, no rhonchi Cardiovascular: RRR, no rub Gastrointestinal: soft, positive bowel sounds Musculoskeletal: no edema Neurological: moves all 4 limbs Dx/Plan - Plan DVT proph w/lovenox, DVT proph w/SCDs IMPRESSION: 1. Afib with RVR - converted to SR - On Amidarone 2. HLD 3. Hypokalemia/hypophosphatemia 4. Pneumothorax s/p chest tube 5. Anxiety/Depression 6. HTN 7. RAZ/Hyperkalemia - resolved PLAN: * Cardio following * On TPN * Replace Potassium * AM labs * Cont to monitor * DC planning * Add PO Mingus Review of Systems - Review of Systems Cardiovascular: negative: chest pain, palpitations, orthopnea, paroxysmal nocturnal dyspnea, edema, light headedness Gastrointestinal: Nausea. negative: Vomiting, Abdominal Pain, Diarrhea, Constipation, Melena, Hematochezia - Medications/Allergies Allergies/Adverse Reactions: Allergies Allergy/AdvReac Type Severity Reaction Status Date / Time succinylcholine Allergy Verified 11/14/17 05:07 volatile anesthetic agents Allergy Uncoded 11/14/17 05:08 Medications: Current Medications Hydrocodone Bitart/Acetaminophen ([place]ingus 5/325) 1 tab PO Q6H PRN PRN Reason: Moderate Pain (4-6) Stop: 11/23/17 09:14 Last Admin: 11/21/17 16:47 Dose: 1 tab Albuterol/Ipratropium (Duoneb) 3 ml NEB Q4H PRN PRN Reason: Wheezing Albuterol/Ipratropium (Duoneb) 3 ml NEB [id number] [facility] Last Admin: 11/21/17 19:01 Dose: 3 ml Amiodarone HCl (Cordarone) 400 mg PO BID [facility] Last Admin: 11/21/17 20:41 Dose: 400 mg Enoxaparin Sodium (Lovenox) 40 mg SC 2100 [facility] Last Admin: 11/21/17 20:43 Dose: 40 mg Fentanyl (Sublimaze) 25 mcg SLOW IVP Q2H PRN PRN Reason: Pain 1ST LINE Last Admin: 11/21/17 09:23 Dose: 25 mcg Hydralazine HCl (Apresoline) 10 mg SLOW IVP Q4H PRN PRN Reason: SBP > 170 or DBP > 100 Hydralazine HCl (Apresoline) 5 mg SLOW IVP Q4H PRN PRN Reason: SBP Greater Than 180 Piperacillin Sod/Tazobactam (Sod 3.375 gm/ Sodium Chloride) 100 mls @ 200 mls/ hr IVPB 0400,1000,1600,2200 [facility] Last Admin: 11/21/17 20:57 Dose: 100 mls Fluconazole/Sodium Chloride (200 mg/ Device) 100 mls @ 100 mls/hr IVPB 2359 [facility] Last Admin: 11/21/17 00:17 Dose: 100 mls Fat Emulsion Intravenous 250 ml/ Sodium Acetate 80 meq/Potassium Acetate 20 meq/ Potassium Phosphate 30 mmol/Calcium Gluconate 10 meq/Magnesium Sulfate 10 meq/ Multivitamins 10 ml/MULTITRACE-4 CONC VIAL 1 ml/Dextrose/Water/ Sterile Water/ Amino Acids 2,.2020 mls @ 84.342 mls/hr IV 1400 [facility] Last Admin: 11/21/17 14:20 Dose: 2,025.1 mls Ondansetron HCl (Zofran) 4 mg IVP Q6H PRN PRN Reason: Nausea/Vomiting Last Admin: 11/13/17 15:23 Dose: 4 mg Pantoprazole Sodium (Protonix) 40 mg IVP DAILY [facility] Last Admin: 11/21/17 08:13 Dose: 40 mg Promethazine HCl (Phenergan) 12.5 mg IM Q4H PRN PRN Reason: Nausea/Vomiting Last Admin: 11/13/17 20:05 Dose: 12.5 mg Saccharomyces Boulardii (Florastor) 250 mg PO HS [facility] Last Admin: 11/21/17 20:56 Dose: 250 mg Sodium Chloride (Flush - Normal Saline) 10 ml IVF PRN PRN PRN Reason: Saline Flush
[2017-11-22] MEDS: HYDROcodone/Acetaminophen 5/325 mg Tablet PO PRN ×3 (00:59→22:26)
[2017-11-22] MEDS: Piperacillin/Tazobactam 3.375 GM in Sodium Chloride 0.9% 100 ML IVPB SCH ×4 (04:25→21:18)
[2017-11-22 05:57] LABS: Anisocytosis MODERATE=16-30 cells (100X) (0-5/hpf); Band 11 % (5-11); Eosinophils 2 % (0-10); Hemoglobin 7.4 g/dL (12.0-16.0); Hypochromia SLIGHT = 6-15 cells (100X) (0-5/hpf); Lymphocytes 8 % (21-51); MDiff Complete? YES; Mean Corpuscular HGB CONC 30.4 g/dL (32.0-36.0); Mean Corpuscular Volume 85.5 fl (81.0-99.0); Mean Platelet Volume 8.6 fL (7.4-10.4); Monocytes 2 % (0-10); Neutrophil 77 % (42-75); Platelet Count 328 thou/uL (130-400); RBC Distribution Width 22.8 % (11.5-14.5); Red Blood Cell (RBC) Count 2.83 mill/uL (4.20-5.40); White Blood Cell (WBC) Count 20.7 thou/uL (4.8-10.8)
[2017-11-22 06:06] LABS: Anion Gap 9 mmol/L (10-20); BUN (Urea Nitrogen) 41 mg/dL (9.8-20.1); Calc. Creatinine Clearance 94 mL/min (70-130); Calcium 8.7 mg/dL (7.8-10.44); Carbon Dioxide 25 mmol/L (23-31); Chloride 108 mmol/L (98-107); Estimated GFR-MDRD 75; Glucose 119 mg/dL (83-110); Potassium 4.1 mmol/L (3.5-5.1); Sodium 138 mmol/L (136-145)
[2017-11-22] MEDS: Pantoprazole 40 MG VIAL IVP SCH (09:06)
[2017-11-22] MEDS: Amiodarone 200 MG TAB PO SCH ×2 (09:06→21:17)
--- NOTE | 2017-11-22 11:17 | PDOC.PN ---
- Subjective Encounter Start Date: 11/22/17 Encounter Start Time: 09:45 Subjective: awake, trying to eat her yogurt -: no chest pain/sob or palp - Objective MAR Reviewed: Yes Vital Signs & Weight: Vital Signs (12 hours) Temp Pulse Resp BP Pulse Ox 11/22/17 09:00 97.8 F 80 16 165/71 H 96 11/22/17 07:10 98 11/22/17 07:09 80 24 H 98 11/22/17 04:00 98.0 F 83 20 154/69 H 95 11/22/17 00:57 20 11/22/17 00:00 98.2 F 79 20 149/64 H 95 Weight Admit Weight 180 lb Weight 235 lb Most Recent Monitor Data Heart Rate from ECG 80 NIBP 153/67 NIBP BP-Mean 89 Respiration from ECG 22 SpO2 99 I&O: 11/21/17 11/22/17 11/23/17 06:59 06:59 06:59 Intake Total 2060 3569 Output Total 815 300 Balance 1245 3269 Result Diagrams: 11/22/17 05:28 11/22/17 05:28 Additional Labs: Accuchecks 11/22/17 11/21/17 11/21/17 05:46 20:37 16:57 POC Glucose 134 H 114 H 107 11/21/17 11:34 POC Glucose 116 H Phys Exam - Physical Examination HEENT: PERRLA, sclera anicteric dry mucosa Neck: no JVD, supple Respiratory: no wheezing, no rales Cardiovascular: RRR, no significant murmur Gastrointestinal: soft ileostomy has green liq, wound vac to ruq Musculoskeletal: pulses present, edema present Neurological: non-focal, moves all 4 limbs Dx/Plan (1) Afib Code(s): I48.91 - UNSPECIFIED ATRIAL FIBRILLATION Status: Acute Qualifiers: Atrial fibrillation type: paroxysmal Qualified Code(s): I48.0 - Paroxysmal atrial fibrillation Comment: in sinus now (2) Physical deconditioning Code(s): R53.81 - OTHER MALAISE Status: Acute (3) Hypoalbuminemia Code(s): E88.09 - OTH DISORDERS OF PLASMA-PROTEIN METABOLISM, NEC Status: Acute Comment: sec to poor oral intake and post op (4) Colon cancer Code(s): C18.9 - MALIGNANT NEOPLASM OF COLON, UNSPECIFIED Status: Acute Qualifiers: Colon location: hepatic flexure Qualified Code(s): 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 Review of Systems - Medications/Allergies Allergies/Adverse Reactions: Allergies Allergy/AdvReac Type Severity Reaction Status Date / Time succinylcholine Allergy Verified 11/14/17 05:07 volatile anesthetic agents Allergy Uncoded 11/14/17 05:08 Medications: Current Medications Hydrocodone Bitart/Acetaminophen (Lynn 5/325) 1 tab PO Q6H PRN PRN Reason: Moderate Pain (4-6) Stop: 11/23/17 09:14 Last Admin: 11/22/17 00:59 Dose: 1 tab Albuterol/Ipratropium (Duoneb) 3 ml NEB Q4H PRN PRN Reason: Wheezing Albuterol/Ipratropium (Duoneb) 3 ml NEB [id number] [facility] Last Admin: 11/22/17 07:09 Dose: 3 ml Amiodarone HCl (Cordarone) 400 mg PO BID [facility] Last Admin: 11/22/17 09:06 Dose: 400 mg Enoxaparin Sodium (Lovenox) 40 mg SC 2100 [facility] Last Admin: 11/21/17 20:43 Dose: 40 mg Fentanyl (Sublimaze) 25 mcg SLOW IVP Q2H PRN PRN Reason: Pain 1ST LINE Last Admin: 11/21/17 09:23 Dose: 25 mcg Hydralazine HCl (Apresoline) 10 mg SLOW IVP Q4H PRN PRN Reason: SBP > 170 or DBP > 100 Hydralazine HCl (Apresoline) 5 mg SLOW IVP Q4H PRN PRN Reason: SBP Greater Than 180 Piperacillin Sod/Tazobactam (Sod 3.375 gm/ Sodium Chloride) 100 mls @ 200 mls/ hr IVPB 0400,1000,1600,2200 [facility] Last Admin: 11/22/17 09:06 Dose: 100 mls Fluconazole/Sodium Chloride (200 mg/ Device) 100 mls @ 100 mls/hr IVPB 2359 [facility] Last Admin: 11/21/17 23:25 Dose: 100 mls Fat Emulsion Intravenous 250 ml/ Sodium Acetate 80 meq/Potassium Acetate 20 meq/ Potassium Phosphate 30 mmol/Calcium Gluconate 10 meq/Magnesium Sulfate 10 meq/ Multivitamins 10 ml/MULTITRACE-4 CONC VIAL 1 ml/Dextrose/Water/ Sterile Water/ Amino Acids 2,025.2021 mls @ 84.342 mls/hr IV 1400 [facility] Last Admin: 11/21/17 14:20 Dose: 2,025.2021 mls Ondansetron HCl (Zofran) 4 mg IVP Q6H PRN PRN Reason: Nausea/Vomiting Last Admin: 11/13/17 15:23 Dose: 4 mg Pantoprazole Sodium (Protonix) 40 mg IVP DAILY [facility] Last Admin: 11/22/17 09:06 Dose: 40 mg Promethazine HCl (Phenergan) 12.5 mg IM Q4H PRN PRN Reason: Nausea/Vomiting Last Admin: 11/13/17 20:05 Dose: 12.5 mg Saccharomyces Boulardii (Florastor) 250 mg PO HS [facility] Last Admin: 11/21/17 20:56 Dose: 250 mg Sodium Chloride (Flush - Normal Saline) 10 ml IVF PRN PRN PRN Reason: Saline Flush
--- NOTE | 2017-11-22 12:36 | PRG ---
DATE OF SERVICE: 11/22/2017 SUBJECTIVE: Sierra Chou is doing well today. She is on telemetry. She is in sinus rhythm. OBJECTIVE: VITAL SIGNS: Temperature 97.8 degrees, heart rate 80, blood pressure 167/71. She has been converted to oral medications. LUNGS: Clear to auscultation. CARDIAC: Regular rate and rhythm without murmur or gallop. ABDOMEN: Soft, nontender. Ileostomy healthy. The patient is tolerating her diet. EXTREMITIES: Her mobility is poor. I have asked her to get out of bed today, but she has refused st ating she just does not feel like it. At this point, she is doing well. Severe deconditioning, we will need physical therapy. Expect acevedo sfer this week after atrial fibrillation is well controlled.
[2017-11-22] MEDS: [UNRECOGNIZED DRUG - OTHER] IV SCH ×10 (14:25)
[2017-11-22] MEDS: FAT EMULSION IV SCH ×10 (14:25)
[2017-11-22] MEDS: POTASSIUM ACETATE IV SCH ×10 (14:25)
[2017-11-22] MEDS: SODIUM ACETATE IV SCH ×10 (14:25)
--- NOTE | 2017-11-22 16:39 | PRG ---
DATE OF SERVICE: 11/22/2017 SUBJECTIVE: The patient was sitting in a chair at the side of the bed. She says she is feeling much better. OBJECTIVE: VITAL SIGNS: She is afebrile, heart rate 88, respiratory rate 24, oximetry is 97 on 2 liters, blood pressure 174/74. LUNGS: Clear. HEART: Regular rhythm. ABDOMEN: Only mildly tender in the right lower quadrant. LABORATORY DATA: White count 20.7, hemoglobin 7.4, platelets 328, 77 segs, 11% bands. Sodium 138, p otassium 4.1, chloride 108, bicarbonate 25, BUN 41, creatinine 0.7, glucose 119. IMPRESSION: 1. Status post peritonitis. 2. Supraventricular tachycardia. 3. Status post left pneumothorax. 4. Leukocytosis with a small left shift. PLAN: Continue current care given that she is slowly improving subjectively and objectively.
--- NOTE | 2017-11-22 18:55 | PDOC.CTH ---
Cardiology Progress Note - Subjective She is doing better. Sitting on the chair today. - Objective Vital Signs Temp Pulse Resp BP Pulse Ox 11/22/17 16:19 97.8 F 97 18 138/62 98 11/22/17 13:09 88 24 H 11/22/17 12:21 98.2 F 84 18 174/74 H 97 11/22/17 09:00 97.8 F 80 16 165/71 H 96 11/22/17 07:10 98 11/22/17 07:09 80 24 H 98 Admit Weight 180 lb Weight 235 lb 11/21/17 11/22/17 11/23/17 06:59 06:59 06:59 Intake Total 2060 3569 1684 Output Total 815 300 110 Balance 1245 3269 1574 - Physical Examination General/Neuro: alert & oriented x3, NAD Neck: no JVD present Lungs: unlabored respirations Heart: RRR Abdomen: NT/ND Extremities: + edema B (1+) - Telemetry Telemetry Rhythm: NSR - Labs Result Diagrams: 11/22/17 05:28 11/22/17 05:28 Troponin/CKMB CK-MB (CK-2) 2.9 ng/mL (0-6.6) 11/13/17 14:04 Troponin I 0.070 ng/mL (< 0.028) H 11/20/17 15:34 - Assessment/Plan 1. Afib RVR, resolved. 2. Non sustained SVT 3. Acute Kidney injury. 4. S/P colectomy 5. Anastomotic leak s/p repair. 6. Colon Ca s/p resection. PLAN: - Continue amiodarone PO loading. - Most likely related to low potassium - Will hold off on anticoagulation for now due to recent surgery, will discuss with surgery before discharge to see when it would be safe to start anticoagulation.
[2017-11-22] MEDS: Enoxaparin Sodium 40 MG/0.4 ML SYRINGE SC SCH (21:17)
[2017-11-22] MEDS: Saccharomyces boulardii 250 MG CAP PO SCH (21:17)
[2017-11-23] MEDS: Fluconazole In NaCl,Iso-Osm 200 MG in Premix Bag 1 BAG IVPB SCH ×2 (00:16)
[2017-11-23] MEDS: Piperacillin/Tazobactam 3.375 GM in Sodium Chloride 0.9% 100 ML IVPB SCH ×4 (03:57→21:25)
[2017-11-23] MEDS: HYDROcodone/Acetaminophen 5/325 mg Tablet PO PRN ×2 (05:27→11:03)
[2017-11-23 05:57] LABS: Anion Gap 9 mmol/L (10-20); BUN (Urea Nitrogen) 41 mg/dL (9.8-20.1); Calc. Creatinine Clearance 82 mL/min (70-130); Calcium 8.8 mg/dL (7.8-10.44); Carbon Dioxide 26 mmol/L (23-31); Chloride 105 mmol/L (98-107); Estimated GFR-MDRD 66; Glucose 112 mg/dL (83-110); Potassium 4.3 mmol/L (3.5-5.1); Sodium 136 mmol/L (136-145)
[2017-11-23 06:26] LABS: #Eosinphils 0.5 thou/uL (0.0-0.7); #Lymphocytes 1.3 thou/uL (1.20-3.40); #Monocytes 0.7 thou/uL (0.11-0.59); #Neutrophils 13.4 thou/uL (1.40-6.50); %Eosinophils 3.4 % (0.0-10.0); %Lymphocytes 8.1 % (21.0-51.0); %Monocytes 4.3 % (0.0-10.0); %Neutrophils 84.2 % (42.0-75.0); Hemoglobin 7.6 g/dL (12.0-16.0); Mean Corpuscular HGB CONC 29.6 g/dL (32.0-36.0); Mean Corpuscular Hemoglobin 25.5 pg (27.0-31.0); Mean Corpuscular Volume 86.3 fl (81.0-99.0); Mean Platelet Volume 8.6 fL (7.4-10.4); Platelet Count 343 thou/uL (130-400); RBC Distribution Width 22.7 % (11.5-14.5); Red Blood Cell (RBC) Count 2.97 mill/uL (4.20-5.40); White Blood Cell (WBC) Count 15.9 thou/uL (4.8-10.8)
[2017-11-23] MEDS: Pantoprazole 40 MG VIAL IVP SCH (09:45)
[2017-11-23] MEDS: Amiodarone 200 MG TAB PO SCH ×2 (09:45→20:50)
--- NOTE | 2017-11-23 10:57 | PDOC.PN ---
- Subjective Encounter Start Date: 11/23/17 Encounter Start Time: 10:54 Patient seen at bedside. No overnight events, complains of cough. - Objective MAR Reviewed: Yes Vital Signs & Weight: Vital Signs (12 hours) Temp Pulse Resp BP Pulse Ox 11/23/17 08:20 71 20 98 11/23/17 04:00 98.3 F 76 20 135/61 97 11/23/17 00:54 72 20 11/22/17 23:34 98.3 F 79 18 133/62 94 L Weight Admit Weight 180 lb Weight 227 lb 4.8 oz Most Recent Monitor Data Heart Rate from ECG 80 NIBP 153/67 NIBP BP-Mean 89 Respiration from ECG 22 SpO2 99 I&O: 11/22/17 11/23/17 11/24/17 06:59 06:59 06:59 Intake Total 3569 3626 Output Total 300 390 Balance 3269 3236 Result Diagrams: 11/23/17 05:34 11/23/17 05:34 Additional Labs: Accuchecks 11/23/17 11/22/17 11/22/17 05:50 19:48 17:09 POC Glucose 112 H 112 H 118 H 11/22/17 11:30 POC Glucose 102 Phys Exam - Physical Examination Constitutional: NAD HEENT: moist MMs Neck: no JVD Respiratory: clear to auscultation bilateral Cardiovascular: RRR Gastrointestinal: soft wound vac present Musculoskeletal: pulses present Neurological: non-focal Psychiatric: A&O x 3 Dx/Plan (1) Acute respiratory failure Code(s): J96.00 - ACUTE RESPIRATORY FAILURE, UNSP W HYPOXIA OR HYPERCAPNIA Status: Resolved (2) Pneumothorax on left Code(s): J93.9 - PNEUMOTHORAX, UNSPECIFIED Status: Resolved (3) Acute renal failure Status: Resolved Qualifiers: Acute renal failure type: unspecified Qualified Code(s): N17.9 - Acute kidney failure, unspecified (4) Atrial fibrillation Code(s): I48.91 - UNSPECIFIED ATRIAL FIBRILLATION Status: Acute - Plan cont current plan of care, plan discussed w/ family, continue antibiotics, respiratory therapy, out of bed/ambulate, DVT proph w/lovenox * Continue with PO amiodarone. Follow up with Cardiology and GS input about when to start anticoagulation * IV Zosyn * Wound Care * TPN (monitor electrolytes) * Placement ( to swing bed when medically stable)
[2017-11-23] MEDS: Benzonatate 100 MG CAP PO PRN (13:03)
[2017-11-23] MEDS: Diabetic Tussin 200 MG/10 ML UDCUP PO PRN (13:03)
[2017-11-23] MEDS ORDERED: Ibuprofen 600 MG TAB PO PRN (13:29)
[2017-11-23] MEDS ORDERED: Acetaminophen 500 MG TAB PO PRN (13:29)
[2017-11-23] MEDS ORDERED: traMADol HCl 50 MG TAB PO PRN (13:29)
--- NOTE | 2017-11-23 13:49 | PRG ---
DATE OF SERVICE: 11/23/2017 SUBJECTIVE: Ms. Chou is doing well today. Her atrial fibrillation has resolved. She is in sinus rhythm. OBJECTIVE: VITAL SIGNS: Heart rate 83, temperature 98.1 degrees, respiration 16, blood pressure 151/64. GENERA L: She is awake, alert. Her nausea has resolved. LUNGS: Clear to auscultation. CARDIAC: Regular rate and rhythm without murmur or gallop. ABDOMEN: Soft, nontender. Ileostomy healthy. EXTREMITIES: Unremarkable. With the nurse's help, yesterday, she has spent 3 hours in a chair. She looks forward to getting up out of bed into a chair today. LABORATORY DATA: This morning, her white count is down to 15,000 from 30,000 two days ago, hemoglobi n 7.6, stable from yesterday's hemoglobin at 7.4. She continues TPN and full liquid diet. Ileostomy function is good. ASSESSMENT AND PLAN: 1. Anastomotic leak status post ileostomy. Advance her to regular diet, wean her TPN and saline loc k her fluids. I think her hemoglobin decreased is mostly delusional. There are no signs of bleeding . 2. Severe deconditioning. Continue efforts for mobility. 3. Anemia, combined surgical, medical and nutritional. Known indication for transfusion at this [facility].
[2017-11-23] MEDS ORDERED: POTASSIUM ACETATE IV SCH ×11 (14:00)
[2017-11-23] MEDS ORDERED: SODIUM ACETATE IV SCH ×11 (14:00)
[2017-11-23] MEDS ORDERED: FAT EMULSION IV SCH ×11 (14:00)
[2017-11-23] MEDS ORDERED: [UNRECOGNIZED DRUG - OTHER] IV SCH ×11 (14:00)
--- NOTE | 2017-11-23 19:01 | PDOC.CTH ---
Cardiology Progress Note - Subjective No new issues or concerns. - Objective Vital Signs Temp Pulse Pulse Resp BP BP Pulse Ox 11/23/17 18:41 90 20 98 11/23/17 13:53 84 24 H 11/23/17 13:36 77 142/65 H 11/23/17 12:00 98.1 F 83 16 151/64 H 94 L 11/23/17 08:20 71 20 98 11/23/17 08:00 98.4 F 69 16 146/67 H 96 Admit Weight 180 lb Weight 227 lb 4.8 oz 11/22/17 11/23/17 11/24/17 06:59 06:59 06:59 Intake Total 3569 3626 622 Output Total 300 390 300 Balance 3269 3236 322 - Physical Examination General/Neuro: alert & oriented x3, NAD Neck: no JVD present Lungs: unlabored respirations Heart: RRR Abdomen: NT/ND Extremities: + edema B (trace) - Telemetry Telemetry Rhythm: NSR - Labs Result Diagrams: 11/23/17 05:34 11/23/17 05:34 Troponin/CKMB CK-MB (CK-2) 2.9 ng/mL (0-6.6) 11/13/17 14:04 Troponin I 0.070 ng/mL (< 0.028) H 11/20/17 15:34 - Assessment/Plan 1. Afib RVR, currently in sinus 2. Non sustained SVT 3. Acute Kidney injury. 4. S/P colectomy 5. Anastomotic leak s/p repair. 6. Colon Ca s/p resection. PLAN: - Continue amiodarone PO loading, continue 400 mg BID for 8 more days then down to 200 mg daily. - Will hold off on anticoagulation for now due to recent surgery, will discuss with surgery before discharge to see when it would be safe to start anticoagulation.
--- NOTE | 2017-11-23 19:10 | PRG ---
SUBJECTIVE: Ms. Sierra Chou surprisingly says she feels better than yesterday. OBJECTIVE: VITAL SIGNS: She is afebrile; heart rate is 90; respiratory rate is 20; oximetry is 98 on 2 liters, she is probably close to weaning off oxygen; blood pressure 142/65. LUNGS: Clear. HEART: Regular rhythm. ABDOMEN: Nontender. LABORATORY DATA: White count 15.9; hemoglobin 7.6, yesterday she was 7.4; platelets 343. Sodium 136 , potassium 4.3, chloride 105, bicarbonate 26, BUN 41, creatinine 0.82. BUN was 41 yesterday as well . IMPRESSION: 1. Status post laparotomy for peritonitis with an anastomotic leak. She is doing well. 2. Deconditioning. 3. Stable anemia secondary to surgery and blood loss. PLAN: Continue supportive care, physical therapy, increasing out of bedtime. I think she is doing b clementina than anyone expected at this point.
[2017-11-23] MEDS: Mirtazapine 30 MG TAB PO SCH (20:49)
[2017-11-23] MEDS: Enoxaparin Sodium 40 MG/0.4 ML SYRINGE SC SCH (20:50)
[2017-11-23] MEDS: Saccharomyces boulardii 250 MG CAP PO SCH (20:50)
[2017-11-24] MEDS: Fluconazole In NaCl,Iso-Osm 200 MG in Premix Bag 1 BAG IVPB SCH ×2 (00:01)
[2017-11-24] MEDS: traMADol HCl 50 MG TAB PO PRN ×2 (02:07→09:18)
[2017-11-24] MEDS: Piperacillin/Tazobactam 3.375 GM in Sodium Chloride 0.9% 100 ML IVPB SCH ×2 (03:11→12:23)
[2017-11-24] MEDS: Benzonatate 100 MG CAP PO PRN (05:00)
[2017-11-24] MEDS: Diabetic Tussin 200 MG/10 ML UDCUP PO PRN ×2 (05:00→17:46)
[2017-11-24 05:36] LABS: Anion Gap 14 mmol/L (10-20); BUN (Urea Nitrogen) 34 mg/dL (9.8-20.1); Calc. Creatinine Clearance 83 mL/min (70-130); Calcium 8.5 mg/dL (7.8-10.44); Carbon Dioxide 21 mmol/L (23-31); Chloride 104 mmol/L (98-107); Estimated GFR-MDRD 67; Glucose 69 mg/dL (83-110); Potassium 4.6 mmol/L (3.5-5.1); Sodium 134 mmol/L (136-145)
[2017-11-24 06:25] LABS: #Basophils 0.1 thou/uL (0.0-0.2); #Eosinphils 0.4 thou/uL (0.0-0.7); #Lymphocytes 1.1 thou/uL (1.20-3.40); #Monocytes 0.7 thou/uL (0.11-0.59); #Neutrophils 12.7 thou/uL (1.40-6.50); %Basophils 0.5 % (0.0-1.0); %Eosinophils 2.5 % (0.0-10.0); %Lymphocytes 7.3 % (21.0-51.0); %Monocytes 4.7 % (0.0-10.0); Anisocytosis SLIGHT = 6-15 cells (100X) (0-5/hpf); Hemoglobin 7.2 g/dL (12.0-16.0); Hypochromia SLIGHT = 6-15 cells (100X) (0-5/hpf); MDiff Complete? YES; Mean Corpuscular HGB CONC 30.5 g/dL (32.0-36.0); Mean Corpuscular Hemoglobin 26.2 pg (27.0-31.0); Mean Platelet Volume 8.8 fL (7.4-10.4); Platelet Count 381 thou/uL (130-400); RBC Distribution Width 22.7 % (11.5-14.5); Red Blood Cell (RBC) Count 2.75 mill/uL (4.20-5.40)
[2017-11-24 07:44] LABS: Reticulocyte Count 2.1 % (0.5-1.5)
[2017-11-24 08:01] LABS: Iron Less than 8 ug/dL (50-170); Iron Binding Capacity, Total 144 mcg/dL (265-497)
[2017-11-24] MEDS: Multivit, Therapeutic 1 TAB PO SCH (09:54)
[2017-11-24] MEDS: Cyanocobalamin (Vitamin B-12) 1,000 MCG TAB PO SCH (09:54)
[2017-11-24] MEDS: Amiodarone 200 MG TAB PO SCH ×2 (09:54→21:21)
[2017-11-24] MEDS: Folic Acid 1 MG TAB PO SCH (09:54)
[2017-11-24] MEDS: Calcium/Multivitamins W-Iron 1 TAB TAB PO SCH (09:54)
[2017-11-24] MEDS: Zinc Sulfate 220 MG CAP PO SCH (09:55)
--- NOTE | 2017-11-24 09:55 | PRG ---
DATE OF SERVICE: 11/24/2017 She is better this morning, awake, alert, responsive. No shortness of breath. PHYSICAL EXAMINATION: VITAL SIGNS: Sats 95% on 2 liters, temperature 98, blood pressure 140/69. CHEST: Chest revealed decreased breath sounds, no wheezing. CARDIAC: Normal S1-S2. No gallops. ABDOMEN: Soft, no masses. LABORATORY: White count 15,000, H&H 7 and 20, platelet count is normal. Electrolytes are normal. K idney function normal. IMPRESSION: 1. Status post respiratory failure. 2. Peritonitis. 3. Pneumothorax. 4. Severe deconditioning. PLAN: Continue antibiotics as per Surgery. Her cultures so far sensitive to present antibiotic [place]. PT and supportive care. I will follow while she is in a monitored bed.
[2017-11-24] MEDS ORDERED: Iron Sucrose Complex 200 MG in Sodium Chloride 0.9% 250 ML 250 ML IVPB SCH (10:00)
[2017-11-24] MEDS ORDERED: Furosemide 40 MG TAB PO SCH (15:30)
--- NOTE | 2017-11-24 15:36 | PRG ---
DATE OF SERVICE: 11/24/2017 SUBJECTIVE: She is postoperative day #14 from her right hemicolectomy. She had a stage III colon ca ncer with 4 of 20 lymph nodes involved. She is postoperative day #10 from abdominal washout, repair of anastomotic leak. She has been stable over the weekend on the telemetry floor. She has had no further episodes of atri al fibrillation while on amiodarone. She is currently on oral amiodarone receiving her loading dose of this. She has been cared for this by Dr. Madrigal. Yesterday, her TPN was discontinued and she has developed an appetite and is now tolerating a regular diet. She denies any vomiting or abdominal pa in. She denies any shortness of breath. She has good ostomy function. She has some improved level of activity, but is still walking within the room. She remained up until today on intravenous Zosyn and Diflucan as treatment of her infection. Her [facility] te blood cell count has decreased from 30 on Friday, down to 15 today (Friday). Her hemoglobin; aviles shagufta, has dropped from 9.5 down to 7.2. Her iron studies were very low and she has received a dose of intravenous iron today. PHYSICAL EXAMINATION: VITAL SIGNS: She is afebrile, pulse is 72, blood pressure 145/69. GENERAL: She is in no distress. She is alert and oriented x3. CHEST: Lungs are clear to auscultation. HEART: Regular rate and rhythm. ABDOMEN: Soft, nontender, nondistended. She apparently still has some drainage from one of her drai n sites in her lower abdomen. Her ostomy in her right abdomen is functioning well. She still has a dressing on her right upper quadrant wound site. LABORATORY STUDIES: CBC results are referred to above. Her basic metabolic panel is unremarkable. ASSESSMENT AND PLAN: The patient who is doing well following her colon resection. She did have a byrd bsequent pneumothorax and atrial fibrillation and these medical issues seem to be resolved as well. She appears to be stable for discharge. Plan is for her to go to a swing bed at [place]. The patient will be stable to go there tomorro w. Her intravenous antibiotics will be discontinued today. She requires no others at this time. I will repeat his CEA level tomorrow to see what it is. It was 25 before surgery. We will also reques t an Oncology consult since she is still here in the hospital. I doubt she will ever get chemotherap y because of her age and medical condition. She is certainly far enough out from surgery that she ca n be anticoagulated per Cardiology. They felt this was appropriate.
--- NOTE | 2017-11-24 16:59 | PDOC.CTH ---
Cardiology Progress Note - Subjective She is doing well. She is receiving IV iron for her anemia. - Objective Vital Signs Temp Pulse Resp BP Pulse Ox 11/24/17 10:15 98.6 F 72 18 95 11/24/17 08:00 98.6 F 72 18 145/69 H 95 Admit Weight 180 lb Weight 228 lb 4.8 oz 11/23/17 11/24/17 11/25/17 06:59 06:59 06:59 Intake Total 3626 4762 Output Total 390 1100 Balance 3236 3662 - Physical Examination General/Neuro: alert & oriented x3, NAD Neck: no JVD present Lungs: unlabored respirations Heart: RRR Abdomen: NT/ND Extremities: + edema B (1+) - Telemetry Telemetry Rhythm: NSR - Labs Result Diagrams: 11/24/17 04:39 11/24/17 04:39 Troponin/CKMB CK-MB (CK-2) 2.9 ng/mL (0-6.6) 11/13/17 14:04 Troponin I 0.070 ng/mL (< 0.028) H 11/20/17 15:34 - Assessment/Plan 1. Afib RVR, currently in sinus 2. Non sustained SVT 3. Acute Kidney injury. 4. S/P colectomy 5. Anastomotic leak s/p repair. 6. Colon Ca s/p resection. PLAN: - Continue amiodarone PO loading, continue 400 mg BID for 7 more days then down to 200 mg daily. - I spoke with surgery and she is able to start full anticoagulation now. Will start Lovenox tonight at 100 mg SQ BID. If she does not have any major bleeding with this overnight will switch to Eliquis 5 mg BID tomorrow before discharge.
--- NOTE | 2017-11-24 18:33 | PDOC.PN ---
- Subjective Encounter Start Date: 11/24/17 Encounter Start Time: 10:30 Patient seen and examined. No new complaints. No overnight events. - Objective MAR Reviewed: Yes Vital Signs & Weight: Vital Signs (12 hours) Temp Pulse Resp BP Pulse Ox 11/24/17 17:00 70 16 138/62 93 L 11/24/17 12:30 98.2 F 66 16 144/63 H 97 11/24/17 10:15 98.6 F 72 18 95 11/24/17 08:00 98.6 F 72 18 145/69 H 95 Weight Admit Weight 180 lb Weight 228 lb 4.8 oz Most Recent Monitor Data Heart Rate from ECG 80 NIBP 153/67 NIBP BP-Mean 89 Respiration from ECG 22 SpO2 99 I&O: 11/23/17 11/24/17 11/25/17 06:59 06:59 06:59 Intake Total 3626 4762 Output Total 390 1100 Balance 3236 3662 Result Diagrams: 11/24/17 04:39 11/24/17 04:39 EKG Reviewed by me: Yes (Tele SR) Phys Exam - Physical Examination Constitutional: NAD Respiratory: no wheezing, no rhonchi Cardiovascular: RRR, no rub Gastrointestinal: soft, non-tender, positive bowel sounds Musculoskeletal: no edema Neurological: moves all 4 limbs Dx/Plan - Plan DVT proph w/SCDs IMPRESSION: 1. Afib with RVR - converted to SR - On Amidarone loading 2. HLD 3. Iron def Anemia 4. Anxiety/Depression 5. HTN 6. RAZ/HyperkalemiaHypokalemia/hypophosphatemia/Pneumothorax s/p chest tube PLAN: * Replace iron with IV Venofer * On PO Amiodarone * TPN dced * Cardio following * AM labs * Cont to monitor * DC planning Laboratory Tests 11/24/17 07:30 Iron Less than 8 L Review of Systems - Review of Systems Respiratory: negative: Cough, Dry, Shortness of Breath, Hemoptysis, SOB with Excertion, Pleuritic Pain, Sputum, Wheezing Cardiovascular: negative: chest pain, palpitations, orthopnea, paroxysmal nocturnal dyspnea, edema, light headedness - Medications/Allergies Allergies/Adverse Reactions: Allergies Allergy/AdvReac Type Severity Reaction Status Date / Time succinylcholine Allergy Verified 11/14/17 05:07 volatile anesthetic agents Allergy Uncoded 11/14/17 05:08 Medications: Current Medications Acetaminophen (Tylenol) 1,000 mg PO Q6H PRN PRN Reason: Moderate to Severe Pain (6-10) Albuterol/Ipratropium (Duoneb) 3 ml NEB Q4H PRN PRN Reason: Wheezing Albuterol/Ipratropium (Duoneb) 3 ml NEB [id number] [facility] Last Admin: 11/24/17 15:14 Dose: 3 ml Amiodarone HCl (Cordarone) 400 mg PO BID [facility] Last Admin: 11/24/17 09:54 Dose: 400 mg Benzonatate (Tessalon) 100 mg PO TIDPRN PRN PRN Reason: Cough Last Admin: 11/24/17 05:00 Dose: 100 mg Cyanocobalamin (Vitamin B-12) 1,000 mcg PO DAILY [facility] Last Admin: 11/24/17 09:54 Dose: 1,000 mcg Enoxaparin Sodium (Lovenox) 100 mg SC 0900,2100 [facility] Folic Acid (Folvite) 1 mg PO DAILY [facility] Last Admin: 11/24/17 09:54 Dose: 1 mg Guaifenesin (Robitussin Sf) 200 mg PO Q4H PRN PRN Reason: Cough Last Admin: 11/24/17 17:46 Dose: 200 mg Hydralazine HCl (Apresoline) 10 mg SLOW IVP Q4H PRN PRN Reason: SBP > 170 or DBP > 100 Hydralazine HCl (Apresoline) 5 mg SLOW IVP Q4H PRN PRN Reason: SBP Greater Than 180 Ibuprofen (Motrin) 600 mg PO Q6H PRN PRN Reason: Pain 1-5 Last Admin: 11/24/17 04:55 Dose: 600 mg Iron/Minerals/Multivitamins (Fosfree) 1 tab PO DAILY [facility] Last Admin: 11/24/17 09:54 Dose: 1 tab Mirtazapine (Remeron) 30 mg PO HS [facility] Last Admin: 11/23/17 20:49 Dose: 30 mg Multivitamins (Theragran) 1 tab PO DAILY [facility] Last Admin: 11/24/17 09:54 Dose: 1 tab Ondansetron HCl (Zofran) 4 mg IVP Q6H PRN PRN Reason: Nausea/Vomiting Last Admin: 11/13/17 15:23 Dose: 4 mg Pantoprazole Sodium (Protonix) 40 mg PO DAILY [facility] Last Admin: 11/24/17 09:55 Dose: 40 mg Saccharomyces Boulardii (Florastor) 250 mg PO HS [facility] Last Admin: 11/23/17 20:50 Dose: 250 mg Sertraline HCl (Zoloft) 100 mg PO HS [facility] Last Admin: 11/23/17 20:49 Dose: 100 mg Sodium Chloride (Flush - Normal Saline) 10 ml IVF PRN PRN PRN Reason: Saline Flush Last Admin: 11/22/17 21:18 Dose: 10 ml Tramadol HCl (Ultram) 50 mg PO Q6H PRN PRN Reason: Pain 1ST LINE Tramadol HCl (Ultram) 100 mg PO Q6H PRN PRN Reason: Pain 2ND LINE Last Admin: 11/24/17 09:18 Dose: 100 mg Zinc Sulfate (Zinc Sulfate) 220 mg PO DAILY [facility] Last Admin: 11/24/17 09:55 Dose: 220 mg
[2017-11-24] MEDS ORDERED: Enoxaparin Sodium 100 MG/ML SYRINGE SC SCH (21:00)
[2017-11-24] MEDS: Saccharomyces boulardii 250 MG CAP PO SCH (21:22)
[2017-11-24] MEDS: Mirtazapine 30 MG TAB PO SCH (21:22)
[2017-11-24 22:26] LABS: Hemoglobin 7.4 g/dL (12.0-16.0); Platelet Count 385 thou/uL (130-400)
[2017-11-25 05:57] LABS: #Eosinphils 0.4 thou/uL (0.0-0.7); #Lymphocytes 1.1 thou/uL (1.20-3.40); #Monocytes 0.7 thou/uL (0.11-0.59); #Neutrophils 8.3 thou/uL (1.40-6.50); %Basophils 0.1 % (0.0-1.0); %Eosinophils 3.9 % (0.0-10.0); %Lymphocytes 10.1 % (21.0-51.0); %Monocytes 6.7 % (0.0-10.0); %Neutrophils 79.2 % (42.0-75.0); Anion Gap 11 mmol/L (10-20); Anisocytosis SLIGHT = 6-15 cells (100X) (0-5/hpf); BUN (Urea Nitrogen) 24 mg/dL (9.8-20.1); Calc. Creatinine Clearance 80 mL/min (70-130); Calcium 8.7 mg/dL (7.8-10.44); Carbon Dioxide 24 mmol/L (23-31); Chloride 105 mmol/L (98-107); Estimated GFR-MDRD 64; Glucose 89 mg/dL (83-110); Hemoglobin 7.7 g/dL (12.0-16.0); MDiff Complete? YES; Magnesium 1.9 mg/dL (1.6-2.6); Mean Corpuscular HGB CONC 29.8 g/dL (32.0-36.0); Mean Corpuscular Hemoglobin 25.8 pg (27.0-31.0); Mean Corpuscular Volume 86.8 fl (81.0-99.0); Mean Platelet Volume 8.5 fL (7.4-10.4); Platelet Count 399 thou/uL (130-400); Potassium 4.3 mmol/L (3.5-5.1); RBC Distribution Width 22.1 % (11.5-14.5); Red Blood Cell (RBC) Count 2.98 mill/uL (4.20-5.40); Sodium 136 mmol/L (136-145); White Blood Cell (WBC) Count 10.4 thou/uL (4.8-10.8)
[2017-11-25] MEDS: Apixaban 5 MG TAB PO SCH ×2 (09:07→21:34)
[2017-11-25] MEDS: Cyanocobalamin (Vitamin B-12) 1,000 MCG TAB PO SCH (09:08)
[2017-11-25] MEDS: Calcium/Multivitamins W-Iron 1 TAB TAB PO SCH (09:08)
[2017-11-25] MEDS: Multivit, Therapeutic 1 TAB PO SCH (09:08)
[2017-11-25] MEDS: Amiodarone 200 MG TAB PO SCH ×2 (09:08→21:34)
[2017-11-25] MEDS: Zinc Sulfate 220 MG CAP PO SCH (09:09)
[2017-11-25] MEDS: Folic Acid 1 MG TAB PO SCH (09:09)
--- NOTE | 2017-11-25 10:32 | PRG ---
DATE OF SERVICE: 11/25/2017 This morning she is awake, alert, responsive, better. She is eating her breakfast. Not having much difficulty breathing. She walked a little bit with a walker. PHYSICAL EXAMINATION: VITAL SIGNS: Sats are 91 on 2 liters, temperature is 97, blood pressure 130/60. CHEST: Chest reveals decreased breath sounds, no wheezing. CARDIAC: Normal S1, S2. ABDOMEN: Soft, no masses. H&H is stable at 7.7 and 25, platelet count is normal. Electrolytes are normal. IMPRESSION: 1. Status post lap, peritonitis, colostomy. 2. Respiratory failure with pneumothorax. Extubate if stable. 3. Severe deconditioning. 4. Supraventricular tachycardia. PLAN: She will be transferred to rehab in [place]. Pulmonary will follow at a distance. Please call if needed.
[2017-11-25] MEDS ORDERED: Furosemide 20 MG TAB PO SCH (11:15)
--- NOTE | 2017-11-25 11:25 | PRG ---
DATE OF SERVICE: 11/25/2017 SUBJECTIVE: Ms. Chou is postoperative day #15 from a right hemicolectomy. She had a stage III col on cancer with 4 of 20 lymph nodes positive. She is postoperative day #10 from abdominal washout and repair of anastomotic leak. She remains without complaint. She is tolerating a regular diet with good ostomy function. She rony ins on 2 liters of oxygen, but tells me she is breathing comfortably. She denies any pain. She is s till very weak and not getting out of bed significantly without help. She was started on Eliquis yesterday by Dr. Madrigal and remains on amiodarone, although her atrial fib rillation has resolved. All antibiotics have been discontinued. PHYSICAL EXAMINATION: VITAL SIGNS: She is afebrile, pulse 79, blood pressure 135/60. LUNGS: Clear to auscultation anteriorly. CARDIAC: Regular rate and rhythm. ABDOMEN: Soft, nontender, nondistended. The abdomen is benign with normoactive bowel sounds. LABORATORY STUDIES: Her basic metabolic panel is essentially normal. Her CEA level is down to 3.0 f rom 25 preoperatively. Her hemoglobin level today is 7.7. White blood cell count is 10.4. ASSESSMENT AND PLAN: The patient continues to do well. She is very stable for transfer. Unfortunat jaz, there is apparently no beds in [place] for her to be transferred to. The plan is for her t o transfer as soon as a bed, opens up which is allegedly going to happen tomorrow. She will continue on her regular diet and physical therapy. I will start her on oral iron supplementation to help sparkle at her anemia. She did receive a dose of intravenous iron yesterday. It is gratifying that her CEA level has dropped so much. Hopefully, this surgery is a curative for h er as she is not a good candidate for chemotherapy.
--- NOTE | 2017-11-25 13:02 | RAD ---
RADIOGRAPH CHEST 1 VIEW: Date: 11/25/2017 Time: 11:21 a.m. HISTORY: An 87-year-old female with hypoxia. COMPARISON: 11/20/2017 FINDINGS: The volume of subcutaneous emphysema at the left chest wall, extending to the left breast, has decrea sed. The volume of subcutaneous emphysema in the supraclavicular regions bilaterally, extending into the neck, have significantly decreased during the interval. The left internal jugular central venou s catheter remains with the distal tip overlying the SVC. There continue to be bilateral pleural eff usions, moderate to large in size. These have increased in volume. There is underlying opacificatio n of the lower lung zones, including almost complete silhouetting of the cardiac shadow now, worse th an previously. There is no pneumothorax. IMPRESSION: 1. Interval increase in volume of moderate to large bilateral pleural effusions. 2. Associated interval worsening of consolidation of the bilateral lower lung zones, either atelecta sis or pneumonia. TYLER [] POS: RODDY
--- NOTE | 2017-11-25 14:42 | CON ---
DATE OF CONSULTATION: 11/25/2017 REASON FOR CONSULTATION: Colon cancer. HISTORY OF PRESENT ILLNESS: Ms. Chou is an 87-year-old female, who saw her primary care for weight loss and anemia. Workup revealed a mass at the hepatic flexure. She underwent a hemicolectomy. Th e tumor was 11.5 x 6.5 x 3 cm in maximum dimension, and 4/20 lymph nodes were positive for metastatic disease. Patient is stage 3 colon cancer. She had postoperative complications including an anastom otic leak, malignant hyperthermia, and respiratory failure. She had a left pneumothorax with chest t ube placement. She has slowly recovered over the last few weeks and is now ready for discharge to a skilled facility. We were asked to see this patient prior to discharge. PAST MEDICAL HISTORY: 1. Newly diagnosed colon cancer. 2. Anemia. 3. High cholesterol. 4. Hypertension. 5. Chronic kidney disease. PAST SURGICAL HISTORY: 1. Hemicolectomy. 2. Hysterectomy. 3. Cholecystectomy. 4. Cataract surgery. ALLERGIES: SUCCINYLCHOLINE. CURRENT MEDICATIONS: 1. DuoNeb p.r.n. 2. Cordarone 400 mg b.i.d. 3. Eliquis 2.5 mg b.i.d. 4. Tessalon Perles t.i.d. 5. B12 daily. 6. Ferrous sulfate daily. 7. Folvite daily. 8. Robitussin p.r.n. 9. Apresoline p.r.n. 10. Remeron 30 mg daily. 11. Protonix 40 mg daily. 12. Zoloft 100 mg daily. 13. Ultram p.r.n. FAMILY HISTORY: Noncontributory. 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 No alcohol, tobacco, or illicit drug use. REVIEW OF SYSTEMS: Ten-point review is negative except for noted in HPI. PHYSICAL EXAMINATION: VITAL SIGNS: Temperature 98.8, pulse is 80, respiratory rate 16, BP is 161/68. She is 91% on 2 lite rs. GENERAL: A frail female in no acute distress. HEENT: Normocephalic, atraumatic. Pupils are equal and reactive to light. NECK: Supple. CARDIOVASCULAR: Regular rate and rhythm. LUNGS: Diminished throughout. ABDOMEN: Soft, nontender, bowel sounds are positive. EXTREMITIES: No clubbing, cyanosis, or edema. SKIN: No rash. HEMATOLOGIC: No petechia or purpura. NEUROLOGIC: Nonfocal. PSYCHIATRIC: The patient is alert and oriented and answering questions appropriately. PERTINENT LABORATORY AND X-RAYS: Current WBCs 10.4, hemoglobin 7.7, hematocrit 25.9, platelet count is 399,000, 80% neutrophils, 10% lymphocytes. Sodium is 136, potassium 4.3, chloride 105, CO2 is 24, BUN is 24, creatinine 0.84, calcium is 8.7, magnesium 1.9. IMPRESSION: 1. Stage 3 adenocarcinoma of the colon. 2. Anemia. 3. Deconditioning. DISCUSSION: Case was discussed with Dr. Childress. The patient is deconditioned and needs placement i n a detention unit. The patient's granddaughter, who was at bedside during this discussion, fe el that she should come to our clinic in the outpatient setting to discuss the benefits versus risk o f chemotherapy, which would be the standard of care with stage 3 cancer; however, given the patient's very weak status, I feel it is unlikely that she will be a candidate for chemotherapy any time soon. Our clinic information and a followup appointment was provided and hopefully she will become strong er over the next few weeks. Thank you for the consult.
[2017-11-25 14:55] VITALS: BMI 33.9
[2017-11-25] MEDS: Ferrous Sulfate 325 MG TAB PO SCH (17:03)
--- NOTE | 2017-11-25 18:00 | PDOC.CTH ---
Cardiology Progress Note - Subjective She is doing well. She tolerated full anticoagulation well. No new issues. - Objective Vital Signs Temp Pulse Resp BP Pulse Ox 11/25/17 13:10 80 16 11/25/17 11:55 98.8 F 79 20 161/68 H 88 L 11/25/17 08:00 97.9 F 79 18 91 L 11/25/17 07:35 97.9 F 79 18 135/60 91 L 11/25/17 06:53 80 16 Admit Weight 180 lb Weight 223 lb 11/24/17 11/25/17 11/26/17 06:59 06:59 06:59 Intake Total 4762 240 Output Total 1100 450 Balance 3662 -210 - Physical Examination General/Neuro: alert & oriented x3, NAD Neck: no JVD present Lungs: unlabored respirations Heart: RRR Abdomen: NT/ND Extremities: + edema B (1+) - Telemetry Telemetry Rhythm: NSR - Labs Result Diagrams: 11/25/17 04:41 11/25/17 04:41 Troponin/CKMB CK-MB (CK-2) 2.9 ng/mL (0-6.6) 11/13/17 14:04 Troponin I 0.070 ng/mL (< 0.028) H 11/20/17 15:34 - Assessment/Plan 1. Afib RVR, currently in sinus 2. Non sustained SVT 3. Acute Kidney injury. 4. S/P colectomy 5. Anastomotic leak s/p repair. 6. Colon Ca s/p resection. PLAN: - Continue amiodarone PO loading, continue 400 mg BID for 6 more days then down to 200 mg daily. - We switched to Eliquis this morning. - May discharge at any time form cardiac perspective. - Follow up with me in 2-4 weeks.
--- NOTE | 2017-11-25 18:53 | PDOC.PN ---
- Subjective Encounter Start Date: 11/25/17 Encounter Start Time: 14:30 Patient seen and examined. No new complaints. No overnight events - Objective MAR Reviewed: Yes Vital Signs & Weight: Vital Signs (12 hours) Temp Pulse Resp BP Pulse Ox 11/25/17 13:10 80 16 11/25/17 11:55 98.8 F 79 20 161/68 H 88 L 11/25/17 08:00 97.9 F 79 18 91 L 11/25/17 07:35 97.9 F 79 18 135/60 91 L 11/25/17 06:53 80 16 Weight Admit Weight 180 lb Weight 223 lb Most Recent Monitor Data Heart Rate from ECG 80 NIBP 153/67 NIBP BP-Mean 89 Respiration from ECG 22 SpO2 99 I&O: 11/24/17 11/25/17 11/26/17 06:59 06:59 06:59 Intake Total 4762 240 Output Total 1100 450 Balance 3662 -210 Result Diagrams: 11/25/17 04:41 11/25/17 04:41 EKG Reviewed by me: Yes (Tele SR) Phys Exam - Physical Examination Constitutional: NAD Respiratory: no wheezing, no rhonchi Cardiovascular: RRR, no rub Gastrointestinal: soft, non-tender, positive bowel sounds Musculoskeletal: no edema Neurological: moves all 4 limbs Dx/Plan - Plan IMPRESSION: 1. Afib with RVR - converted to SR - On Amidarone loading 2. HLD 3. Iron def Anemia 4. Anxiety/Depression 5. HTN 6. Physical deconditioning 7. RAZ/Hyperkalemia/Hypokalemia/hypophosphatemia/Pneumothorax s/p chest tube - resolved PLAN: * On PO Amiodarone per Cardiology * Cardio following * Seen by Oncology for Colon Ca - outpt follow up * No bed at [facility] today - probable dc in AM * Will follow PRN Review of Systems - Review of Systems Respiratory: negative: Cough, Dry, Shortness of Breath, Hemoptysis, SOB with Excertion, Pleuritic Pain, Sputum, Wheezing Cardiovascular: negative: chest pain, palpitations, orthopnea, paroxysmal nocturnal dyspnea, edema, light headedness - Medications/Allergies Allergies/Adverse Reactions: Allergies Allergy/AdvReac Type Severity Reaction Status Date / Time succinylcholine Allergy Verified 11/14/17 05:07 volatile anesthetic agents Allergy Uncoded 11/14/17 05:08 Medications: Current Medications Acetaminophen (Tylenol) 1,000 mg PO Q6H PRN PRN Reason: Moderate to Severe Pain (6-10) Albuterol/Ipratropium (Duoneb) 3 ml NEB Q4H PRN PRN Reason: Wheezing Albuterol/Ipratropium (Duoneb) 3 ml NEB [id number] [facility] Last Admin: 11/25/17 13:10 Dose: 3 ml Amiodarone HCl (Cordarone) 400 mg PO BID [facility] Last Admin: 11/25/17 09:08 Dose: 400 mg Apixaban (Eliquis) 2.5 mg PO BID [facility] Last Admin: 11/25/17 09:07 Dose: 2.5 mg Benzonatate (Tessalon) 100 mg PO TIDPRN PRN PRN Reason: Cough Last Admin: 11/24/17 05:00 Dose: 100 mg Cyanocobalamin (Vitamin B-12) 1,000 mcg PO DAILY [facility] Last Admin: 11/25/17 09:08 Dose: 1,000 mcg Ferrous Sulfate (Feosol) 325 mg PO BID-[facility] Last Admin: 11/25/17 17:03 Dose: 325 mg Folic Acid (Folvite) 1 mg PO DAILY [facility] Last Admin: 11/25/17 09:09 Dose: 1 mg Guaifenesin (Robitussin Sf) 200 mg PO Q4H PRN PRN Reason: Cough Last Admin: 11/24/17 17:46 Dose: 200 mg Hydralazine HCl (Apresoline) 10 mg SLOW IVP Q4H PRN PRN Reason: SBP > 170 or DBP > 100 Hydralazine HCl (Apresoline) 5 mg SLOW IVP Q4H PRN PRN Reason: SBP Greater Than 180 Ibuprofen (Motrin) 600 mg PO Q6H PRN PRN Reason: Pain 1-5 Last Admin: 11/24/17 04:55 Dose: 600 mg Iron/Minerals/Multivitamins (Fosfree) 1 tab PO DAILY [facility] Last Admin: 11/25/17 09:08 Dose: 1 tab Mirtazapine (Remeron) 30 mg PO HS [facility] Last Admin: 11/24/17 21:22 Dose: 30 mg Multivitamins (Theragran) 1 tab PO DAILY [facility] Last Admin: 11/25/17 09:08 Dose: 1 tab Ondansetron HCl (Zofran) 4 mg IVP Q6H PRN PRN Reason: Nausea/Vomiting Last Admin: 11/13/17 15:23 Dose: 4 mg Pantoprazole Sodium (Protonix) 40 mg PO DAILY [facility] Last Admin: 11/25/17 09:09 Dose: 40 mg Saccharomyces Boulardii (Florastor) 250 mg PO HS [facility] Last Admin: 11/24/17 21:22 Dose: 250 mg Sertraline HCl (Zoloft) 100 mg PO [facility] Last Admin: 11/24/17 21:22 Dose: 100 mg Sodium Chloride (Flush - Normal Saline) 10 ml IVF PRN PRN PRN Reason: Saline Flush Last Admin: 11/22/17 21:18 Dose: 10 ml Tramadol HCl (Ultram) 50 mg PO Q6H PRN PRN Reason: Pain 1ST LINE Tramadol HCl (Ultram) 100 mg PO Q6H PRN PRN Reason: Pain 2ND LINE Last Admin: 11/24/17 09:18 Dose: 100 mg Zinc Sulfate (Zinc Sulfate) 220 mg PO DAILY [facility] Last Admin: 11/25/17 09:09 Dose: 220 mg
[2017-11-25] MEDS: Saccharomyces boulardii 250 MG CAP PO SCH (21:34)
[2017-11-25] MEDS: Mirtazapine 30 MG TAB PO SCH (21:34)
--- NOTE | 2017-11-26 06:40 | PDOC.CTH ---
Cardiology Progress Note - Subjective No new issues or complaints. - Objective Vital Signs Temp Pulse Resp BP Pulse Ox 11/26/17 04:00 99.1 F 81 20 155/69 H 96 11/26/17 03:33 97 11/26/17 01:14 84 18 95 11/25/17 20:10 98.4 F 79 18 97 11/25/17 19:49 79 18 97 11/25/17 19:40 98.4 F 81 18 163/73 H 97 Admit Weight 180 lb Weight 224 lb 11/24/17 11/25/17 11/26/17 06:59 06:59 06:59 Intake Total 4762 240 360 Output Total 1100 450 100 Balance 3662 -210 260 - Physical Examination General/Neuro: alert & oriented x3, NAD Neck: no JVD present Lungs: CTA, unlabored respirations Heart: RRR Abdomen: NT/ND Extremities: + edema B (1+) - Telemetry Telemetry Rhythm: NSR - Labs Result Diagrams: 11/25/17 04:41 11/25/17 04:41 Troponin/CKMB CK-MB (CK-2) 2.9 ng/mL (0-6.6) 11/13/17 14:04 Troponin I 0.070 ng/mL (< 0.028) H 11/20/17 15:34 - Assessment/Plan 1. Afib RVR, currently in sinus 2. Non sustained SVT 3. Acute Kidney injury. 4. S/P colectomy 5. Anastomotic leak s/p repair. 6. Colon Ca s/p resection. PLAN: - Continue amiodarone but will simplify her loading as she has remained in sinus rhythm. Will switch back to 200 mg daily now. - Continue Eliquis for stroke prophylaxis. - May discharge at any time form cardiac perspective. - Follow up with me in 2-4 weeks.
[2017-11-26] MEDS: Multivit, Therapeutic 1 TAB PO SCH (08:56)
[2017-11-26] MEDS: Calcium/Multivitamins W-Iron 1 TAB TAB PO SCH (08:56)
[2017-11-26] MEDS: Folic Acid 1 MG TAB PO SCH (08:56)
[2017-11-26] MEDS: Cyanocobalamin (Vitamin B-12) 1,000 MCG TAB PO SCH (08:56)
[2017-11-26] MEDS: Apixaban 5 MG TAB PO SCH (08:57)
[2017-11-26] MEDS: Ferrous Sulfate 325 MG TAB PO SCH (08:57)
[2017-11-26] MEDS ORDERED: Amiodarone 200 MG TAB PO SCH (09:00)
[2017-11-26] MEDS: Zinc Sulfate 220 MG CAP PO SCH (10:25)
--- NOTE | 2017-11-26 11:20 | PRG ---
DATE OF SERVICE: 11/26/2017 This morning she is doing well. She is ambulating without much issues. PHYSICAL EXAMINATION: VITAL SIGNS: Sats are 96 on 3 liters, temperature 98, pulse 80, blood pressure 140/66. CHEST: No wheezing or crackles. CARDIAC: Normal S1-S2. No gallops. ABDOMEN: Soft. No masses. IMPRESSION: 1. Status post respiratory failure. 2. Status post lap for peritonitis. 3. Severe deconditioning. 4. Pneumothorax. PLAN: Awaiting placement. PT and supportive care. I will follow.
[2017-11-26 12:29] VITALS: BP 163/69; TEMP 97.9
--- NOTE | 2017-11-26 14:06 | PDOC.PN ---
- Subjective Encounter Start Date: 11/26/17 Encounter Start Time: 10:30 Patient seen and examined. No new complaints. No overnight events - Objective MAR Reviewed: Yes Vital Signs & Weight: Vital Signs (12 hours) Temp Pulse Resp BP Pulse Ox 11/26/17 13:28 80 16 11/26/17 11:30 97.9 F 72 18 163/69 H 96 11/26/17 08:35 97.8 F 83 18 147/66 H 96 11/26/17 08:08 97.8 F 83 18 11/26/17 06:51 80 16 11/26/17 04:00 99.1 F 81 20 155/69 H 96 11/26/17 03:33 97 Weight Admit Weight 180 lb Weight 224 lb Most Recent Monitor Data Heart Rate from ECG 80 NIBP 153/67 NIBP BP-Mean 89 Respiration from ECG 22 SpO2 99 I&O: 11/25/17 11/26/17 11/27/17 06:59 06:59 06:59 Intake Total 240 360 Output Total 450 100 Balance -210 260 Result Diagrams: 11/25/17 04:41 11/25/17 04:41 EKG Reviewed by me: Yes (Tele SR) Phys Exam - Physical Examination Constitutional: NAD Respiratory: no wheezing, no rhonchi Cardiovascular: RRR, no rub Gastrointestinal: soft, positive bowel sounds Musculoskeletal: no edema Neurological: moves all 4 limbs Dx/Plan - Plan IMPRESSION: 1. Afib with RVR - converted to SR - On Amidarone/Eliquis 2. HLD 3. Iron def Anemia 4. Anxiety/Depression 5. HTN 6. Physical deconditioning 7. RAZ/Hyperkalemia/Hypokalemia/hypophosphatemia/Pneumothorax s/p chest tube - resolved PLAN: * Await placement * Cont current meds as below * Seen by Oncology for Colon Ca - outpt Oncology follow up * Will follow PRN Review of Systems - Review of Systems Respiratory: negative: Cough, Dry, Shortness of Breath, Hemoptysis, SOB with Excertion, Pleuritic Pain, Sputum, Wheezing Cardiovascular: negative: chest pain, palpitations, orthopnea, paroxysmal nocturnal dyspnea, edema, light headedness - Medications/Allergies Allergies/Adverse Reactions: Allergies Allergy/AdvReac Type Severity Reaction Status Date / Time succinylcholine Allergy Verified 11/14/17 05:07 volatile anesthetic agents Allergy Uncoded 11/14/17 05:08 Medications: Current Medications Acetaminophen (Tylenol) 1,000 mg PO Q6H PRN PRN Reason: Moderate to Severe Pain (6-10) Albuterol/Ipratropium (Duoneb) 3 ml NEB Q4H PRN PRN Reason: Wheezing Albuterol/Ipratropium (Duoneb) 3 ml NEB [id number] [facility] Last Admin: 11/26/17 13:28 Dose: 3 ml Amiodarone HCl (Cordarone) 200 mg PO DAILY [facility] Last Admin: 11/26/17 08:57 Dose: 200 mg Apixaban (Eliquis) 2.5 mg PO BID [facility] Last Admin: 11/26/17 08:57 Dose: 2.5 mg Benzonatate (Tessalon) 100 mg PO TIDPRN PRN PRN Reason: Cough Last Admin: 11/24/17 05:00 Dose: 100 mg Cyanocobalamin (Vitamin B-12) 1,000 mcg PO DAILY [facility] Last Admin: 11/26/17 08:56 Dose: 1,000 mcg Ferrous Sulfate (Feosol) 325 mg PO BID-[facility] Last Admin: 11/26/17 08:57 Dose: 325 mg Folic Acid (Folvite) 1 mg PO DAILY [facility] Last Admin: 11/26/17 08:56 Dose: 1 mg Guaifenesin (Robitussin Sf) 200 mg PO Q4H PRN PRN Reason: Cough Last Admin: 11/24/17 17:46 Dose: 200 mg Hydralazine HCl (Apresoline) 10 mg SLOW IVP Q4H PRN PRN Reason: SBP > 170 or DBP > 100 Iron/Minerals/Multivitamins (Fosfree) 1 tab PO DAILY [facility] Last Admin: 11/26/17 08:56 Dose: 1 tab Mirtazapine (Remeron) 30 mg PO HS [facility] Last Admin: 11/25/17 21:34 Dose: 30 mg Multivitamins (Theragran) 1 tab PO DAILY [facility] Last Admin: 11/26/17 08:56 Dose: 1 tab Ondansetron HCl (Zofran) 4 mg IVP Q6H PRN PRN Reason: Nausea/Vomiting Last Admin: 11/13/17 15:23 Dose: 4 mg Pantoprazole Sodium (Protonix) 40 mg PO DAILY [facility] Last Admin: 11/26/17 08:56 Dose: 40 mg Saccharomyces Boulardii (Florastor) 250 mg PO HS [facility] Last Admin: 11/25/17 21:34 Dose: 250 mg Sertraline HCl (Zoloft) 100 mg PO HS [facility] Last Admin: 11/25/17 21:34 Dose: 100 mg Sodium Chloride (Flush - Normal Saline) 10 ml IVF PRN PRN PRN Reason: Saline Flush Last Admin: 11/22/17 21:18 Dose: 10 ml Tramadol HCl (Ultram) 50 mg PO Q6H PRN PRN Reason: Pain 1ST LINE Last Admin: 11/26/17 02:17 Dose: 50 mg Tramadol HCl (Ultram) 100 mg PO Q6H PRN PRN Reason: Pain 2ND LINE Last Admin: 11/24/17 09:18 Dose: 100 mg Zinc Sulfate (Zinc Sulfate) 220 mg PO DAILY [facility] Last Admin: 11/26/17 10:25 Dose: 220 mg
== END 2017-11-26 16:07 | disposition swing bed (61) | DRG 329 ==
LOC: SURG A 09:18 → EDSTATUS 16:38 → SURG A 19:17 → 2NO 11-13 14:25 → CCU 11-13 22:43 → SURG B 11-17 15:44 → 2NO 11-20 10:23
PROVIDERS: ADMIT Specialist; ATTEND Specialist
PROC: 0DTF4ZZ Resection of Right Large Intestine, Percutaneous Endoscopic Approach (ICD-10-PCS; principal; 2017-11-10)
PROC: 3E0T3BZ Introduction of Anesthetic Agent into Peripheral Nerves and Plexi, Percutaneous Approach (ICD-10-PCS; 2017-11-10)
PROC: 0D1B4Z4 Bypass Ileum to Cutaneous, Percutaneous Endoscopic Approach (ICD-10-PCS; 2017-11-13)
PROC: 0DN84ZZ Release Small Intestine, Percutaneous Endoscopic Approach (ICD-10-PCS; 2017-11-13)
PROC: 0DQ84ZZ Repair Small Intestine, Percutaneous Endoscopic Approach (ICD-10-PCS; 2017-11-13)
PROC: 0W9F40Z Drainage of Abdominal Wall with Drainage Device, Percutaneous Endoscopic Approach (ICD-10-PCS; 2017-11-13)
PROC: 06HY33Z Insertion of Infusion Device into Lower Vein, Percutaneous Approach (ICD-10-PCS; 2017-11-13)
PROC: 02HV33Z Insertion of Infusion Device into Superior Vena Cava, Percutaneous Approach (ICD-10-PCS; 2017-11-14)
PROC: 3E0436Z Introduction of Nutritional Substance into Central Vein, Percutaneous Approach (ICD-10-PCS; 2017-11-14)
PROC: 0BH17EZ Insertion of Endotracheal Airway into Trachea, Via Natural or Artificial Opening (ICD-10-PCS; 2017-11-14)
PROC: 5A1945Z Respiratory Ventilation, 24-96 Consecutive Hours (ICD-10-PCS; 2017-11-14)
PROC: 0BJ08ZZ Inspection of Tracheobronchial Tree, Via Natural or Artificial Opening Endoscopic (ICD-10-PCS; 2017-11-14)
PROC: 0W9B00Z Drainage of Left Pleural Cavity with Drainage Device, Open Approach (ICD-10-PCS; 2017-11-15)
DX: C18.4 Malignant neoplasm of transverse colon (principal); K65.9 Peritonitis, unspecified; N17.0 Acute kidney failure with tubular necrosis; J96.00 Acute respiratory failure, unspecified whether with hypoxia or hypercapnia; J90 Pleural effusion, not elsewhere classified; A41.9 Sepsis, unspecified organism; E87.2 Acidosis; E87.5 Hyperkalemia; I47.1 Supraventricular tachycardia; I48.0 Paroxysmal atrial fibrillation; K91.89 Other postprocedural complications and disorders of digestive system; J93.83 Other pneumothorax; D50.0 Iron deficiency anemia secondary to blood loss (chronic); D64.9 Anemia, unspecified; I10 Essential (primary) hypertension; K21.9 Gastro-esophageal reflux disease without esophagitis; Y83.8 Other surgical procedures as the cause of abnormal reaction of the patient, or of later complication, without mention of misadventure at the time of the procedure; Y92.230 Patient room in hospital as the place of occurrence of the external cause; E87.6 Hypokalemia; E83.39 Other disorders of phosphorus metabolism; F41.8 Other specified anxiety disorders; F39 Unspecified mood [affective] disorder; M81.0 Age-related osteoporosis without current pathological fracture
CPT/HCPCS: 36415; 36416; 71045; 71046; 74018; 74176; 74177; 80048; 80053; 80061; 80076; 81003; 82378; 82533; 82553; 82570; 82728; 82805; 83036; 83540; 83550; 83735; 83880; 84100; 84134; 84300; 84439; 84443; 84481; 84484; 85025; 85046; 85610; 85730; 87070; 87205; 87324; 87449; 88309; 93005; 93010; 93306; 94003; 94150; 94640; A4216; A4217; C1751; C1769; C9113; G8978-GP-CM; G8979-GP-CJ; J0131; J0282; J0670; J0694; J1100; J1450; J1642; J1644; J1650; J1720; J1756; J1815; J1885; J2001; J2250; J2270; J2405; J2543; J2550; J2704; J3010; J3411; J3475; J3480; J7042; J7050; J7070; J7620; P9045; P9047; S0028

== ENCOUNTER 2018-01-16 11:17 | Inpatient (IN) | payer MEDICARE ==
[2018-01-16] MEDS ORDERED: Ondansetron HCl/PF 4 MG/2 ML Vial ONE (11:58)
[2018-01-16 12:25] LABS: #Basophils 0.1 thou/uL (0.0-0.2); #Eosinphils 0.1 thou/uL (0.0-0.7); #Lymphocytes 2.5 thou/uL (1.20-3.40); #Monocytes 0.7 thou/uL (0.11-0.59); #Neutrophils 5.1 thou/uL (1.40-6.50); %Basophils 1.3 % (0.0-1.0); %Eosinophils 0.7 % (0.0-10.0); %Monocytes 7.8 % (0.0-10.0); %Neutrophils 60.3 % (42.0-75.0); Hemoglobin 13.6 g/dL (12.0-16.0); Mean Corpuscular HGB CONC 30.2 g/dL (32.0-36.0); Mean Corpuscular Hemoglobin 26.8 pg (27.0-31.0); Mean Corpuscular Volume 88.9 fl (81.0-99.0); Mean Platelet Volume 8.6 fL (7.4-10.4); Platelet Count 318 thou/uL (130-400); Red Blood Cell (RBC) Count 5.08 mill/uL (4.20-5.40); White Blood Cell (WBC) Count 8.5 thou/uL (4.8-10.8)
[2018-01-16 12:46] LABS: ALT (SGPT) 10 U/L (8-55); AST (SGOT) 24 U/L (5-34); Albumin 3.8 g/dL (3.4-4.8); Alkaline Phosphatase 96 U/L (40-150); Anion Gap 16 mmol/L (10-20); BUN (Urea Nitrogen) 74 mg/dL (9.8-20.1); Bilirubin, Total 0.4 mg/dL (0.2-1.2); Calc. Creatinine Clearance 0 mL/min (70-130); Calcium 11.4 mg/dL (7.8-10.44); Carbon Dioxide 14 mmol/L (23-31); Chloride 106 mmol/L (98-107); Estimated GFR-MDRD 11; Glucose 97 mg/dL (83-110); Magnesium 2.5 mg/dL (1.6-2.6); Potassium 5.7 mmol/L (3.5-5.1); Protein, Total 8.8 g/dL (6.0-8.3); Sodium 130 mmol/L (136-145)
[2018-01-16] MEDS ORDERED: Acetaminophen 325 MG TAB PO PRN (13:59)
[2018-01-16] MEDS ORDERED: Zolpidem Tartrate 5 MG TAB PO PRN (13:59)
--- NOTE | 2018-01-16 14:47 | HP ---
PRIMARY CARE PROVIDER: Dr. Qian Avery. Referred to [facility] Service by [facility]. HISTORY OF PRESENT ILLNESS: The patient had a colon cancer surgery on 11/10/2017, followed by repeat surgeries for anastomotic leak and eventual ileostomy. She has apparently had fairly profuse watery yellowish output from her ileostomy. She notes no blood. She has been anorectic, nausea with emesi s 2-3 times a day. No blood in her emesis. She is weak. PAST MEDICAL HISTORY: Colon cancer surgery on 11/10/2017, atrial fibrillation, hypertension, dyslipi demia, depression, iron deficiency anemia. PAST SURGICAL HISTORY: Hemicolectomy with ileostomy, anastomosis repair and abdominal washout, hyste rectomy, cholecystectomy, cataract surgery. CURRENT MEDICATIONS: Amiodarone 200 mg a day, amlodipine 5 mg a day, Eliquis 2.5 mg twice a day, Tri Cor 145 mg once a day, Remeron 30 mg a day, Zofran oral dissolving tablet 4 mg every 6 hours as neede d, Protonix 40 mg a day, Zoloft 100 mg at night. ALLERGIES: VOLATILE ANESTHESIA AGENTS and SUCCINYLCHOLINE causes malignant hyperthermia. SOCIAL HISTORY: , two sons. She states she does not understand surrogate decision making. D oes not understand code status and does not want to talk about it. Does not drink alcohol or abuse d rugs. FAMILY HISTORY: Negative for inheritable diseases. REVIEW OF SYSTEMS: General: No headaches, dizziness or fainting. Eyes: No double vision, blurred vision, flashing lights. Ear, nose and throat: No ear pain or drainage. No nasal bleeding. No tro uble swallowing. Cardiac: No chest pain, orthopnea or paroxysmal nocturnal dyspnea. Respiratory: Dyspnea on exertion. No cough, wheezing or asthma. Gastrointestinal: See present illness. Genitou rinary: She has had marked decreased output for the last 2 days. No blood. Musculoskeletal: No pa in or swelling in arms or legs. Neurologic: No strokes, seizures or focal weakness. Psychiatric: Some anxiety, depression issues. Skin: No bruising, bleeding or rash. Heme/lymph: No tender or sw ollen lymph nodes in axilla, inguinal or cervical area. PHYSICAL EXAMINATION: GENERAL: She is an alert, pleasant, cooperative lady, looking chronically ill. VITAL SIGNS: Blood pressure 126/58, pulse 72, respirations 16, temperature 97.6. HEENT: Reveal pupils equal, round, reactive. Bilateral arcus. Extraocular movements intact. Scler ae white. Tympanic membranes are clear. Nose is clear. Oral mucous membranes untouched are parched in appearance. NECK: No jugular venous distention, adenopathy or thyromegaly. CHEST: Clear to auscultation and percussion. There is some dullness in the right base. HEART: Has grossly irregular rhythm with no murmurs, no gallops. ABDOMEN: Soft, bowel sounds are normal. There is an ileostomy on the right lower quadrant. EXTREMITIES: No cyanosis, clubbing or edema. PULSES: Carotid, radial, femoral, and dorsalis pedis pulses palpable and symmetric. LUNGS: Has decreased turgor, otherwise warm and dry. HEME/LYMPH: No tender or swollen lymph nodes in axilla, inguinal or cervical area. NEUROLOGICAL: Cranial nerves II-XII are intact. Deep tendon reflexes symmetric. Moves all extremit ies. DIAGNOSTIC STUDIES: Chest x-ray none presented, we will order one. EKG not available, we will find and review. LABORATORY: Sodium 130, potassium 5.7, CO2 of 14, BUN 74, creatinine 4.01. Liver function test rony rkably normal. CBC unremarkable. Platelet count 318,000, hemoglobin 13.6, white count 8.5. ADMITTING DIAGNOSES: 1. Acute renal failure, most likely on the basis of prerenal azotemia. 2. Hyperkalemia secondary to acute renal failure. 3. Colon cancer post right hemicolectomy and ileostomy with apparent local spread by history. 4. Atrial fibrillation. 5. Anticoagulation. 6. Hypertension. 7. Anorexia. 8. Nausea. PLAN: 1. IV fluids D5 half normal saline at 150 mL an hour. 2. Kayexalate 30 grams p.o. now. Repeat basic metabolic profile in 6 hours and in the morning and d aily. 3. Continue amiodarone, Eliquis, mirtazapine. We will hold amlodipine for now. Continue Protonix. 4. Consult Dr. Childress.
[2018-01-16] MEDS: Dextrose 5 %-0.45 % NaCl 1,000 ML IV SCH ×2 (15:10→21:07)
[2018-01-16] MEDS ORDERED: Heparin 5,000 UNITS/ML VIAL SC SCH (21:00)
[2018-01-16] MEDS: Mirtazapine 30 MG TAB PO SCH (21:04)
[2018-01-16] MEDS: Apixaban 5 MG TAB PO SCH (21:04)
[2018-01-16 21:14] LABS: Chloride 111 mmol/L (98-107); Potassium 3.9 mmol/L (3.5-5.1); Sodium 132 mmol/L (136-145)
[2018-01-16 21:15] LABS: Glucose 155 mg/dL (83-110)
[2018-01-16 21:16] LABS: Anion Gap 11 mmol/L (10-20); Carbon Dioxide 14 mmol/L (23-31)
[2018-01-16 21:18] LABS: Calc. Creatinine Clearance 13 mL/min (70-130); Estimated GFR-MDRD 13
[2018-01-16 21:19] LABS: BUN (Urea Nitrogen) 65 mg/dL (9.8-20.1)
[2018-01-16 21:27] LABS: Calcium 9.4 mg/dL (7.8-10.44)
[2018-01-17 05:47] LABS: Anion Gap 11 mmol/L (10-20); BUN (Urea Nitrogen) 61 mg/dL (9.8-20.1); Calc. Creatinine Clearance 14 mL/min (70-130); Carbon Dioxide 15 mmol/L (23-31); Chloride 112 mmol/L (98-107); Estimated GFR-MDRD 14; Potassium 4.6 mmol/L (3.5-5.1); Sodium 133 mmol/L (136-145)
[2018-01-17 05:48] LABS: Calcium 9.5 mg/dL (7.8-10.44); Glucose 85 mg/dL (83-110)
[2018-01-17] MEDS: Amiodarone 200 MG TAB PO SCH (09:02)
[2018-01-17] MEDS: Apixaban 5 MG TAB PO SCH ×2 (09:46→21:57)
[2018-01-17] MEDS: Dextrose 5 %-0.45 % NaCl 1,000 ML IV SCH ×2 (09:49→09:50)
--- NOTE | 2018-01-17 14:58 | PDOC.PN ---
- Subjective Encounter Start Date: 01/17/18 Encounter Start Time: 14:57 Subjective: Seen and examined no new complaint - Objective Resuscitation Status: Resuscitation Status FULL:Full Resuscitation Vital Signs & Weight: Vital Signs (12 hours) Temp Pulse Resp BP Pulse Ox 01/17/18 12:00 95 01/17/18 11:44 97.4 F L 70 18 102/58 L 96 01/17/18 08:00 97.6 F 69 16 95 01/17/18 07:52 97.6 F 69 16 113/54 L 97 01/17/18 03:45 98.0 F 66 16 92/49 L 96 Weight Admit Weight 150 lb 9.564 oz Weight 150 lb 9.564 oz I&O: 01/16/18 01/17/18 01/18/18 06:59 06:59 06:59 Intake Total 840 960 Output Total 250 Balance 590 960 Result Diagrams: 01/16/18 12:11 01/17/18 05:09 Phys Exam - Physical Examination Constitutional: NAD HEENT: PERRLA, moist MMs, sclera anicteric, oral pharynx no lesions Neck: no nodes, no JVD, supple, full ROM Respiratory: no wheezing, no rales, no rhonchi, clear to auscultation bilateral Cardiovascular: RRR, no significant murmur, no rub Gastrointestinal: soft, non-tender, no distention, positive bowel sounds Musculoskeletal: no edema, pulses present Dx/Plan (1) Atrial fibrillation Code(s): I48.91 - UNSPECIFIED ATRIAL FIBRILLATION Status: Acute (2) Colon cancer Code(s): C18.9 - MALIGNANT NEOPLASM OF COLON, UNSPECIFIED Status: Acute Qualifiers: Comment: post op 11/10/17, left hemicolectomy with ileostomy, invasive adeno ca (3) Physical deconditioning Code(s): R53.81 - OTHER MALAISE Status: Acute (4) S/P colectomy Status: Acute Comment: for fungating mass removal (5) Acidosis, metabolic Code(s): E87.2 - ACIDOSIS Status: Resolved (6) Acute renal failure Status: Resolved Qualifiers: (7) Afib Code(s): I48.91 - UNSPECIFIED ATRIAL FIBRILLATION Status: Resolved Qualifiers: Comment: in sinus now (8) Hyperkalemia Code(s): E87.5 - HYPERKALEMIA Status: Resolved - Plan cont current plan of care, plan discussed w/ family, PT/OT, executive secretary social welfare, respiratory therapy Start a Bicarb based infusion * .
[2018-01-17] MEDS: Sodium Bicarbonate 150 MEQ in Dextrose 5% in Water 1,000 ML IV SCH ×2 (16:18)
[2018-01-17] MEDS: Ondansetron HCl/PF 4 MG/2 ML Vial IVP PRN (18:31)
[2018-01-17] MEDS: Mirtazapine 30 MG TAB PO SCH (22:00)
[2018-01-18] MEDS: Sodium Bicarbonate 150 MEQ in Dextrose 5% in Water 1,000 ML IV SCH ×6 (00:51→21:35)
[2018-01-18 05:43] LABS: Anion Gap 11 mmol/L (10-20); BUN (Urea Nitrogen) 43 mg/dL (9.8-20.1); Calc. Creatinine Clearance 18 mL/min (70-130); Calcium 8.7 mg/dL (7.8-10.44); Carbon Dioxide 22 mmol/L (23-31); Chloride 106 mmol/L (98-107); Estimated GFR-MDRD 18; Glucose 91 mg/dL (83-110); Potassium 3.6 mmol/L (3.5-5.1); Sodium 135 mmol/L (136-145)
--- NOTE | 2018-01-18 08:02 | PDOC.PN ---
- Subjective Encounter Start Date: 01/18/18 Encounter Start Time: 08:00 Subjective: Seen and examined feeling a little bit better - Objective Resuscitation Status: Resuscitation Status FULL:Full Resuscitation Vital Signs & Weight: Vital Signs (12 hours) Temp Pulse Resp BP Pulse Ox 01/18/18 07:10 97.6 F 69 16 108/50 L 94 L Weight Admit Weight 150 lb 9.564 oz Weight 150 lb 9.564 oz I&O: 01/17/18 01/18/18 01/19/18 06:59 06:59 06:59 Intake Total 840 960 Output Total 250 Balance 590 960 Result Diagrams: 01/16/18 12:11 01/18/18 05:04 Phys Exam - Physical Examination Constitutional: NAD HEENT: PERRLA, moist MMs, sclera anicteric, TM's clear Neck: no nodes, no JVD, supple, full ROM Respiratory: no wheezing, no rales, no rhonchi, clear to auscultation bilateral Cardiovascular: RRR, no significant murmur, no rub Gastrointestinal: soft, non-tender, no distention, positive bowel sounds Musculoskeletal: no edema, pulses present Dx/Plan (1) Atrial fibrillation Code(s): I48.91 - UNSPECIFIED ATRIAL FIBRILLATION Status: Acute (2) Colon cancer Code(s): C18.9 - MALIGNANT NEOPLASM OF COLON, UNSPECIFIED Status: Acute Qualifiers: Comment: post op 11/10/17, left hemicolectomy with ileostomy, invasive adeno ca (3) Physical deconditioning Code(s): R53.81 - OTHER MALAISE Status: Acute (4) S/P colectomy Status: Acute Comment: for fungating mass removal (5) Acidosis, metabolic Code(s): E87.2 - ACIDOSIS Status: Resolved (6) Acute renal failure Status: Resolved Qualifiers: (7) Afib Code(s): I48.91 - UNSPECIFIED ATRIAL FIBRILLATION Status: Resolved Qualifiers: Comment: in sinus now (8) Hyperkalemia Code(s): E87.5 - HYPERKALEMIA Status: Resolved - Plan plan discussed w/ family, PT/OT, manager social media Acidosis improving -: Continue Bicarb gtt for more 1 litter and D/c -: Monitor potassium closely as the acidosis improves * .
[2018-01-18] MEDS: Amiodarone 200 MG TAB PO SCH (10:13)
[2018-01-18] MEDS: Apixaban 5 MG TAB PO SCH ×2 (10:13→21:35)
[2018-01-18] MEDS: Ondansetron HCl/PF 4 MG/2 ML Vial IVP PRN (12:26)
[2018-01-18] MEDS: Mirtazapine 30 MG TAB PO SCH (21:35)
[2018-01-19] MEDS: Sodium Bicarbonate 150 MEQ in Dextrose 5% in Water 1,000 ML IV SCH ×4 (03:48→06:10)
[2018-01-19 06:10] LABS: Anion Gap 9 mmol/L (10-20); BUN (Urea Nitrogen) 32 mg/dL (9.8-20.1); Calc. Creatinine Clearance 20 mL/min (70-130); Calcium 8.3 mg/dL (7.8-10.44); Carbon Dioxide 34 mmol/L (23-31); Chloride 97 mmol/L (98-107); Estimated GFR-MDRD 21; Glucose 96 mg/dL (83-110); Potassium 3.1 mmol/L (3.5-5.1); Sodium 137 mmol/L (136-145)
[2018-01-19] MEDS: Apixaban 5 MG TAB PO SCH ×2 (08:14→21:08)
[2018-01-19] MEDS: Amiodarone 200 MG TAB PO SCH (08:15)
--- NOTE | 2018-01-19 09:42 | PDOC.PN ---
- Subjective Encounter Start Date: 01/19/18 Encounter Start Time: 09:40 Patient seen and examined, states she still has significant abdominal pain, has not been eating much. No other issues overnight, no family at bedside, all questions answered. - Objective Resuscitation Status: Resuscitation Status FULL:Full Resuscitation MAR Reviewed: Yes Vital Signs & Weight: Vital Signs (12 hours) Temp Pulse Resp BP Pulse Ox 01/19/18 07:20 97.5 F L 71 20 114/55 L 90 L Weight Admit Weight 150 lb 9.564 oz Weight 150 lb 9.564 oz I&O: 01/18/18 01/19/18 01/20/18 06:59 06:59 06:59 Intake Total 960 500 Output Total 825 Balance 960 -325 Result Diagrams: 01/16/18 12:11 01/19/18 05:26 Phys Exam - Physical Examination mild distress HEENT: PERRLA, moist MMs Neck: no nodes, no JVD Respiratory: no wheezing, no rales Cardiovascular: RRR, no significant murmur Gastrointestinal: soft, non-tender surgical site C/D/I Musculoskeletal: no edema, pulses present Neurological: non-focal, normal sensation Psychiatric: normal affect, A&O x 3 Dx/Plan (1) Metabolic alkalosis Code(s): E87.3 - ALKALOSIS Status: Acute (2) Atrial fibrillation Code(s): I48.91 - UNSPECIFIED ATRIAL FIBRILLATION Status: Acute (3) Colon cancer Code(s): C18.9 - MALIGNANT NEOPLASM OF COLON, UNSPECIFIED Status: Acute Qualifiers: Comment: post op 11/10/17, left hemicolectomy with ileostomy, invasive adeno ca (4) Physical deconditioning Code(s): R53.81 - OTHER MALAISE Status: Acute (5) Acute respiratory failure Code(s): J96.00 - ACUTE RESPIRATORY FAILURE, UNSP W HYPOXIA OR HYPERCAPNIA Status: Resolved (6) Afib Code(s): I48.91 - UNSPECIFIED ATRIAL FIBRILLATION Status: Resolved Qualifiers: Comment: in sinus now - Plan * DC bicarb for now as patient's bicarb levels high now, acidosis resolved * awaiting surgical input * continue current plan of care * will switch to 0.9% NS for now at 60cc/hr for gentle hydration * DC plans in 24-48hrs once cleared from a surgical stand point * case and plan d/w patient at length, she understands and agrees with this plan
--- NOTE | 2018-01-19 10:50 | PQF ---
CLINICAL DOCUMENTATION IMPROVEMENT CLARIFICATION FORM: ICD-10 Updated PLEASE DO AN ADDENDUM TO THE PROGRESS NOTE WITH ANY DOCUMENTATION UPDATES OR ADDITIONS AND CARRY THROUGH TO DC SUMMARY. THANK YOU. Date: 01/19 ATTN: DR. Rock RUIZ Please exercise your independent, professional judgment in responding to the clarification form. Clinical indicators are provided on the bottom of this form for your review. Please check appropriate box(s): [ ] Protein Calorie Malnutrition: [ ] Mild [ ] Moderate [ ] Severe [ ] Other Malnutrition (please specify) __ [ ] Other diagnosis [ x ] Unable to determine CLINICAL INDICATORS - SIGNS / SYMPTOMS / LABS BMI: 22.9 PHYSICIAN H&P DOCUMENTATION 01/16: HX OF PRESENT ILLNESS: PATIENT HAD COLON SURGERY 11/10/2017, FOLLOWED BY REPEAT SURGERIES FOR ANASTOMOTIC LEAK & EVENTUAL ILEOSTOMY. ...SHE HAS BEEN ANOREXIC, NAUSEA W/EMESIS 2-3 TIMES A DAY. ADMITTING DIAGNOSES: 7. 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 SHE HAS HAD NO APPETITE & OFTEN THROWS UP SINCE OCTOBER, OFTEN SKIPS MEALS. ...PATIENT KNOWS SHE HAS LOST A LOT OF WEIGHT. WEIGHT WAS MEASURED AT 180 LBS DURING ADMIT IN NOVEMBER. OBJECTIVE ASSESSMENT: 16% WEIGHT LOSS IN 2 MONTHS; 24% IN 3 MONTHS; MILD TEMPORAL WASTING OBSERVED RISK FACTORS: COLON CANCER S/P HEMICOLECTOMY W/ILEOSTOMY (NOVEMBER 2017) LOSS OF APPETITE FOR 2 MONTHS N/V FOR 2 MONTHS WEIGHT LOSS TREATMENT: NUTRITION ASSESSMENT NUTRITIONAL SUPPLEMENTS (SUPLENA BID) PRN ANTIEMETICS (ZOFRAN - LAST ADMINISTERED 01/18) Moderate Malnutrition (in acute illness) Energy Intake: <75% of estimated energy requirement for > 7 days Weight Loss: 1-2%/1 week; 5%/ 1 month; 7.5%/3 months Other: mild body fat loss; mild muscle mass loss; mild fluid accumulation; Severe Malnutrition (in acute illness) Energy Intake: < 50% of estimated energy requirement for > 5 days Weight Loss: >1-2%/1 week; >5%/1 month; >7.5%/3 months Other: moderate body fat loss; moderate muscle mass loss; moderate- severe fluid accumulation; measurably reduced finish carpenter strength Moderate Malnutrition (in chronic illness) Energy Intake: <75% of estimated energy requirement for >1 month Weight Loss: 5%/1 month; 7.5%/3 months; 10%/6 months; 20%/1 year Other: mild body fat loss; mild muscle mass loss; mild fluid accumulation Severe Malnutrition (in chronic illness) Energy Intake: <75% of estimated energy requirement for >1 month Weight Loss: >5%/1 month; >7.5%/3 months; >10%/6 months; >20%/1 year Other: severe body fat loss; severe muscle mass loss; severe fluid accumulation; measurably reduced finish carpenter strength THANK YOU! Shadia (This form is maintained as a part of the permanent medical record) 2014 [employer], [place]. All Rights Reserved Shadia Garza RN, BSN [email or web address] Office: [phone] [facility] HEALTH SERVICESJerald
--- NOTE | 2018-01-19 14:17 | PRG ---
DATE OF SERVICE: 01/19/2018 SUBJECTIVE: Ms. Chou is an 87-year-old white female well known to myself following recent surgery for right colon cancer. She had undergone an apparently unremarkable hand-assisted laparoscopic exte nded right hemicolectomy on 11/10/2017 for a proximal transverse colon cancer. Her pathology had rev ealed a T3N2 colon cancer with an 11 cm cancer in the proximal transverse colon and 4 of 20 lymph nod es positive for metastatic spread. Her preoperative CEA level of 25 had dropped down to 3.0 postoper atively. She unfortunately experienced an anastomotic leak requiring a subsequent surgery on 11/14/2017, at ich time her anastomotic leak was repaired and she was given a proximal diverting ileostomy. She als o had issues during the hospitalization with a pneumothorax that required a chest tube and paroxysmal atrial fibrillation for which she is now anticoagulated. She was discharged to the shelter facility with a functioning ileostomy. She appeared to be doing well initially, but I was called last week stating that she was not feeling well. Laboratory s tudies were obtained revealing that she had gone into renal failure. Her baseline creatinine was les s than 1 and her creatinine on 01/16/2018 was 4.0. She was accordingly instructed by her primary car e physician, Dr. Avery to go to the emergency room where she was admitted by the hospitalist jayant barton and has been appropriately, judiciously hydrated over the past 3 days. Her creatinine has dropped from 4.0 down to 2.2 today. Of note is that her of over 7 years in December and she has been feeling depresse d about this. She states that although she has been vomiting that she has been nauseated and she had very poor oral intake before she presented. She has had good ostomy function during this entire critical access hospital. PHYSICAL EXAMINATION: VITAL SIGNS: Today, she is afebrile, pulse is 71, blood pressure is 114/55. LUNGS: Clear to auscultation. HEART: Regular rate and rhythm. ABDOMEN: Benign with normal bowel sounds. Well healed incisions and an appropriately functioning il eostomy. LABORATORY DATA: She has not had CBC since her admission, but her hemoglobin was 13 with a white blo od cell count of 8. Her electrolytes show abnormality today with a low potassium of 3.1. Carbon jun xide is high at 34 and a creatinine as mentioned is down to 2.2. ASSESSMENT AND PLAN: The patient was admitted with a prerenal azotemia related to fluid loss from he r ileostomy that was not adequately compensated by her oral intake. This is probably exacerbated by her depression. She has no intrinsic abdominal reason to have nausea with a good functioning ileosto my. Of note, she also tells me that she has lost about 40 pounds during this process since the treat ment of her cancer began. At this point, I have requested that her Hospitalist resume her anti-depression medication. I will s tart her on Megace as an appetite stimulant and hope that this helps. I will restart IV fluids using D5 normal saline with potassium as her potassium is low today. I will order a barium enema to make sure there is no evidence of further anastomotic problems. I will also recheck labs to see what her actual protein level is within hydrated status. If she has significant protein-calorie malnutrition, we may need to postpone her surgery until this stabilizes and I will obtain a chest x-ray since her last chest x-ray that we had her in the hospital was significantly abnormal to make sure this is norm alized as well. I would anticipate that she can be discharged home once she is tolerating adequate o ral intake and her kidney function is close to normalize. Scheduling of her ileostomy reversal will depend upon her status. The earliest I could do this would be next Friday (01/27/2018), but if her protein levels are markedly low, we may need to put this off for a while still.
[2018-01-19] MEDS: Ondansetron HCl/PF 4 MG/2 ML Vial IVP PRN ×2 (14:20→20:19)
--- NOTE | 2018-01-19 15:36 | RAD ---
CHEST 1 VIEW: HISTORY: Followup abnormal chest x-ray. COMPARISON: Chest radiograph 11/28/17. FINDINGS: Small left layering pleural effusion. Left basilar airspace opacity. No pneumothorax. Cardiac silhouette and mediastinal contours are similar. Improving edema. IMPRESSION: Layering left effusion with basilar airspace opacity may reflect pneumonia, layering fluid, atelectas is, or less likely malignant process. Continued followup recommended. POS: [facility]
[2018-01-19] MEDS: NS 0.9% w/ 20 MEQ KCL 1,000 ML/1,000 ML BAG IV SCH (18:23)
[2018-01-19] MEDS: Melatonin 3 MG TAB PO PRN (20:19)
[2018-01-19] MEDS: Mirtazapine 30 MG TAB PO SCH (21:08)
[2018-01-20] MEDS: NS 0.9% w/ 20 MEQ KCL 1,000 ML/1,000 ML BAG IV SCH ×2 (03:05→05:23)
[2018-01-20 06:07] LABS: #Eosinphils 0.4 thou/uL (0.0-0.7); #Lymphocytes 2.8 thou/uL (1.20-3.40); #Monocytes 0.7 thou/uL (0.11-0.59); #Neutrophils 3.3 thou/uL (1.40-6.50); %Basophils 0.6 % (0.0-1.0); %Eosinophils 5.2 % (0.0-10.0); %Lymphocytes 39.2 % (21.0-51.0); %Monocytes 8.9 % (0.0-10.0); %Neutrophils 46.2 % (42.0-75.0); Hemoglobin 10.3 g/dL (12.0-16.0); Mean Corpuscular HGB CONC 29.9 g/dL (32.0-36.0); Mean Corpuscular Hemoglobin 26.2 pg (27.0-31.0); Mean Corpuscular Volume 87.6 fl (81.0-99.0); Mean Platelet Volume 7.9 fL (7.4-10.4); Platelet Count 281 thou/uL (130-400); RBC Distribution Width 16.4 % (11.5-14.5); Red Blood Cell (RBC) Count 3.92 mill/uL (4.20-5.40); White Blood Cell (WBC) Count 7.2 thou/uL (4.8-10.8)
[2018-01-20 06:18] LABS: ALT (SGPT) 9 U/L (8-55); AST (SGOT) 23 U/L (5-34); Albumin 2.4 g/dL (3.4-4.8); Alkaline Phosphatase 73 U/L (40-150); Anion Gap 10 mmol/L (10-20); BUN (Urea Nitrogen) 26 mg/dL (9.8-20.1); Bilirubin, Total 0.3 mg/dL (0.2-1.2); Calc. Creatinine Clearance 21 mL/min (70-130); Calcium 8.4 mg/dL (7.8-10.44); Carbon Dioxide 34 mmol/L (23-31); Chloride 99 mmol/L (98-107); Estimated GFR-MDRD 22; Glucose 89 mg/dL (83-110); Potassium 3.7 mmol/L (3.5-5.1); Protein, Total 5.4 g/dL (6.0-8.3); Sodium 139 mmol/L (136-145)
[2018-01-20] MEDS: Amiodarone 200 MG TAB PO SCH (08:29)
[2018-01-20] MEDS: Apixaban 5 MG TAB PO SCH ×2 (08:29→21:41)
[2018-01-20] MEDS: D5 1/2 NS w/20 mEq KCL 1,000 ML IV SCH (08:29)
[2018-01-20] MEDS: Loperamide HCl 2 MG CAP PO SCH ×2 (08:29→21:41)
[2018-01-20] MEDS: Megestrol Acetate 800 MG/20 ML UDCUP PO SCH (08:29)
[2018-01-20] MEDS: Ondansetron HCl/PF 4 MG/2 ML Vial IVP PRN (08:38)
--- NOTE | 2018-01-20 12:22 | RAD ---
BARIUM ENEMA STANDARD: Date: 01/20/18 HISTORY: Anastomotic leak. COMPARISON: None. TECHNIQUE/FINDINGS: The patient is brought to the fluoroscopy suite. All questions were answered. Water soluble contrast was instilled retrograde through the rectum. There is adequate distention of the colon. Along the lat eral margin of the suture line of the ileocolic junction, there is a small finger-like projection of what appears to be a small, contained leak. This is small and measures approximately 1.8 x 1.0 cm. No other areas of leak. IMPRESSION: Focal contained leak measuring 1.8 x 1.0 cm at the lateral margin of the anastomosis. POS: [facility]
--- NOTE | 2018-01-20 14:07 | PDOC.PN ---
- Subjective Encounter Start Date: 01/20/18 Encounter Start Time: 09:00 Augustus seen and examined, pending a gastrografin enema, no new issues. - Objective Resuscitation Status: Resuscitation Status FULL:Full Resuscitation Vital Signs & Weight: Vital Signs (12 hours) Temp Pulse Resp BP Pulse Ox 01/20/18 08:00 97.4 F L 75 20 01/20/18 07:20 97.4 F L 75 20 115/57 L 88 L Weight Admit Weight 150 lb 9.564 oz Weight 161 lb I&O: 01/19/18 01/20/18 01/21/18 06:59 06:59 06:59 Intake Total 500 1700 Output Total 825 1975 Balance -325 -275 Result Diagrams: 01/20/18 05:30 01/20/18 05:30 Phys Exam - Physical Examination Constitutional: NAD fraile HEENT: PERRLA, moist MMs, sclera anicteric Neck: no nodes, no JVD, supple Respiratory: no wheezing, no rales, no rhonchi Cardiovascular: RRR, no significant murmur, no rub Gastrointestinal: soft, non-tender, no distention ostomy Musculoskeletal: no edema, pulses present Neurological: non-focal, normal sensation Dx/Plan (1) Metabolic alkalosis Code(s): E87.3 - ALKALOSIS Status: Acute (2) Atrial fibrillation Code(s): I48.91 - UNSPECIFIED ATRIAL FIBRILLATION Status: Acute (3) Colon cancer Code(s): C18.9 - MALIGNANT NEOPLASM OF COLON, UNSPECIFIED Status: Acute Qualifiers: Comment: post op 11/10/17, left hemicolectomy with ileostomy, invasive adeno ca (4) Physical deconditioning Code(s): R53.81 - OTHER MALAISE Status: Acute - Plan * gastrgrafin enema for today * surgery following * Cr trending down * repeat labs in AM * DC plans in 24-48hrs once cleared by surgery, patient tolerating oral diet and passing gas, and labs appropriate * case and plan d/w patient at length, she understands and agrees with this plan
[2018-01-20] MEDS ORDERED: MD-Gastroview 120 ML BOT ONE (17:00)
[2018-01-20] MEDS: Mirtazapine 30 MG TAB PO SCH (21:41)
[2018-01-20] MEDS: Melatonin 3 MG TAB PO PRN (21:41)
[2018-01-21] MEDS: D5 1/2 NS w/20 mEq KCL 1,000 ML IV SCH (03:55)
[2018-01-21 06:11] LABS: Anion Gap 5 mmol/L (10-20); BUN (Urea Nitrogen) 25 mg/dL (9.8-20.1); Calc. Creatinine Clearance 24 mL/min (70-130); Calcium 8.3 mg/dL (7.8-10.44); Carbon Dioxide 36 mmol/L (23-31); Chloride 102 mmol/L (98-107); Estimated GFR-MDRD 24; Glucose 86 mg/dL (83-110); Potassium 3.8 mmol/L (3.5-5.1); Sodium 139 mmol/L (136-145)
[2018-01-21] MEDS: Megestrol Acetate 800 MG/20 ML UDCUP PO SCH (08:37)
[2018-01-21] MEDS: Loperamide HCl 2 MG CAP PO SCH ×2 (08:38→21:29)
[2018-01-21] MEDS: Apixaban 5 MG TAB PO SCH ×2 (08:38→21:28)
[2018-01-21] MEDS: Amiodarone 200 MG TAB PO SCH (08:38)
--- NOTE | 2018-01-21 09:18 | PRG ---
DATE OF SERVICE: 01/20/2018 SUBJECTIVE: Ms. Chou is seen this evening following her Gastrografin enema. She tells me that aft er she returned from that procedure that for reason she is not certain, she felt much better. She fischer d a [place] lunch. Denies any nausea or vomiting or pain. Yesterday started on Imodium to control her fluid loss from her ileostomy as well as Zoloft and Megace. I have told that she vomited her Megace and probably did not keep very much down of that, but she seems to be doing better anyways. She is still on IV fluids at 50 mL per hour as well. PHYSICAL EXAMINATION: VITAL SIGNS: She is afebrile. Vital signs are within normal limits. LUNGS: Clear to auscultation. ABDOMEN: Benign. She denies any tenderness. She has normoactive bowel sounds. LABORATORY STUDIES: Her protein level is low at 5.4, albumin is low at 2.4. Her creatinine has drop ped from 2.20 yesterday to 2.11 today. CBC reveals a hemoglobin of 10.3, platelet count of 281. ASSESSMENT: She appears to be feeling better, doing better. I am not certain if it is because she re sumed her Zoloft and the Imodium is helping her. I would continue her intravenous fluids for now and try to continue the Megace . She vomits this again and try switching her to Marinol Given her low albumin level, I would not want to proceed with ileostomy reversal until this is improved. Additionally, her Gastrografin enema showed potential contained leak at the anastomosis. She certain ly did not spill contents intraperitoneal. Since it appears to be contained, I believe that it would be safe to proceed with reanastomosis the point that she is stable from physiologic and a nutritiona l standpoint. I would anticipate discharge within the next 48 hours. Hopefully, with continued impr ovement in her renal function.
--- NOTE | 2018-01-21 14:47 | PDOC.PN ---
- Subjective Encounter Start Date: 01/21/18 Encounter Start Time: 14:45 cc: abdominal psin sub: pt denies abdominal pain, tolerating diet - Objective Resuscitation Status: Resuscitation Status FULL:Full Resuscitation Vital Signs & Weight: Vital Signs (12 hours) Temp Pulse Resp BP Pulse Ox 01/21/18 11:47 97.9 F 67 16 120/59 L 93 L 01/21/18 08:00 97.7 F 77 16 94 L 01/21/18 07:50 97.7 F 77 16 130/60 94 L Weight Admit Weight 150 lb 9.564 oz Weight 161 lb I&O: 01/20/18 01/21/18 01/22/18 06:59 06:59 06:59 Intake Total 1700 Output Total 1975 Balance -275 Result Diagrams: 01/20/18 05:30 01/21/18 05:24 Phys Exam - Physical Examination Constitutional: NAD HEENT: moist MMs Neck: no JVD Respiratory: no wheezing, no rales, no rhonchi no accessory muscke usage seen Cardiovascular: RRR, no significant murmur, no rub Gastrointestinal: soft mild tender to palpate, no guarding Musculoskeletal: no edema Neurological: non-focal, moves all 4 limbs follows commands Skin: no rash Dx/Plan - Plan * . - Physical Examination Constitutional: NAD fraile HEENT: PERRLA, moist MMs, sclera anicteric Neck: no nodes, no JVD, supple Respiratory: no wheezing, no rales, no rhonchi Cardiovascular: RRR, no significant murmur, no rub Gastrointestinal: soft, non-tender, no distention ostomy Musculoskeletal: no edema, pulses present Neurological: non-focal, normal sensation Dx/Plan (1) Metabolic alkalosis Code(s): E87.3 - ALKALOSIS Status: Acute (2) Atrial fibrillation Code(s): I48.91 - UNSPECIFIED ATRIAL FIBRILLATION Status: Acute (3) Colon cancer Code(s): C18.9 - MALIGNANT NEOPLASM OF COLON, UNSPECIFIED Status: Acute Qualifiers: Comment: post op 11/10/17, left hemicolectomy with ileostomy, invasive adeno ca (4) Physical deconditioning Code(s): R53.81 - OTHER MALAISE Status: Acute - Plan * reviewed surgery note. barium study showed small leak, management per them * Cr appears plateaued, repeat bmp in am * bicarb level stable. * continue current treatment case d/w pt & RN
--- NOTE | 2018-01-21 20:42 | PRG ---
DATE OF SERVICE: 01/21/2018 Ms. Chou is hospital day #6 followed admission for dehydration and hyperkalemia with acute renal fa ilure. She continues to feel better. This may be related to resumption of her Zoloft. She is eatin g better and has been without nausea or pain today. She has still been on low volume IV fluid at 50 mL per hour. In spite of this, her creatinine only dropped from 2.1 yesterday to 2.0 today. I start ed her on Imodium yesterday and she still continues to have fairly voluminous thin ileostomy output. This unfortunately increases her risk for further episodes of dehydration. She has no complaints to day. PHYSICAL EXAMINATION: VITAL SIGNS: She is afebrile. Vital signs are within normal limits. LUNGS: Clear to auscultation. ABDOMEN: Entirely benign with good ileostomy function. LABORATORY STUDIES: As mentioned, her creatinine is 2.0. Carbon dioxide is slightly elevated at 36. Electrolytes are otherwise unremarkable. ASSESSMENT: The patient is feeling much better and eating better. The goal is for her to be taking enough by mouth to avoid dehydration if she is discharged to home. Her low albumin level of 2.4 is c oncerning for an elective ileostomy reversal. I am hopeful that with her current medications that balbina barton will be able to eat enough to raise her protein levels and avoid dehydration. If not, then at some point, it may be to consider reversing ileostomy in spite of low protein levels, although would be w ith recognized increased risk. Hopefully, she will be ready for discharge in the next day or two and then ready for ileostomy reversal in the next 2-3 weeks.
[2018-01-21] MEDS: Mirtazapine 30 MG TAB PO SCH (21:29)
[2018-01-22 06:04] LABS: Hemoglobin 9.6 g/dL (12.0-16.0); Platelet Count 280 thou/uL (130-400)
[2018-01-22 06:15] LABS: Anion Gap 7 mmol/L (10-20); BUN (Urea Nitrogen) 21 mg/dL (9.8-20.1); Calc. Creatinine Clearance 25 mL/min (70-130); Carbon Dioxide 30 mmol/L (23-31); Chloride 104 mmol/L (98-107); Estimated GFR-MDRD 26; Glucose 84 mg/dL (83-110); Potassium 3.7 mmol/L (3.5-5.1); Sodium 137 mmol/L (136-145)
[2018-01-22] MEDS: Loperamide HCl 2 MG CAP PO SCH ×3 (09:03→21:01)
[2018-01-22] MEDS: Amiodarone 200 MG TAB PO SCH (09:03)
[2018-01-22] MEDS: Dronabinol 2.5 MG CAP PO SCH ×2 (09:04→15:39)
[2018-01-22] MEDS: Apixaban 5 MG TAB PO SCH ×2 (09:04→21:01)
--- NOTE | 2018-01-22 11:37 | PDOC.PN ---
- Subjective Encounter Start Date: 01/22/18 Encounter Start Time: 14:02 cc: ileostomy sub: pt says she is eating better - Objective Resuscitation Status: Resuscitation Status FULL:Full Resuscitation Vital Signs & Weight: Vital Signs (12 hours) Temp Pulse Resp BP Pulse Ox 01/22/18 09:01 98.1 F 76 16 130/67 97 01/22/18 08:00 98.1 F 76 16 97 Weight Admit Weight 150 lb 9.564 oz Weight 160 lb 14.999 oz I&O: 01/21/18 01/22/18 01/23/18 06:59 06:59 06:59 Output Total 500 Balance -500 Result Diagrams: 01/22/18 05:45 01/22/18 05:45 Dx/Plan - Plan - Physical Examination Constitutional: NAD fraile HEENT: PERRLA, moist MMs, sclera anicteric Neck: no nodes, no JVD, supple Respiratory: no wheezing, no rales, no rhonchi Cardiovascular: RRR, no significant murmur, no rub Gastrointestinal: soft, non-tender, no distention ostomy Musculoskeletal: no edema, pulses present Neurological: non-focal, normal sensation Dx/Plan (1) Metabolic alkalosis Code(s): E87.3 - ALKALOSIS Status: Acute (2) Atrial fibrillation Code(s): I48.91 - UNSPECIFIED ATRIAL FIBRILLATION Status: Acute (3) Colon cancer Code(s): C18.9 - MALIGNANT NEOPLASM OF COLON, UNSPECIFIED Status: Acute Qualifiers: Comment: post op 11/10/17, left hemicolectomy with ileostomy, invasive adeno ca (4) Physical deconditioning Code(s): R53.81 - OTHER MALAISE Status: Acute 5. RAZ - Plan * reviewed surgery note. barium study showed small leak, management per them * tolerating diet at present * Cr improving slowly. Monitor for now. repeat bmp in am * bicarb level stable. * continue current treatment possible dc in 1-2 days. will get PT/OT to evaluate patient. Might need rehab case d/w pt & RN
--- NOTE | 2018-01-22 18:04 | PRG ---
DATE OF SERVICE: 01/22/2018 SUBJECTIVE: Ms. Chou is hospital day #7 following admission for dehydration with hyperkalemia and acute renal failure. She has stabilized nicely with IV fluids. Medications were initiated to treat issues with nausea and poor appetite. She has been in a good mood for the past 2-3 days. She tells me she has had a good appetite. When I started her on Imodium, she tells me that her ileostomy outpu t has slowed down. She denies any nausea, vomiting or pain. PHYSICAL EXAMINATION: VITAL SIGNS: She is afebrile, pulse 76, blood pressure 130/67. LUNGS: Clear to auscultation. ABDOMEN: Soft, nontender, nondistended. Ileostomy function is good. LABORATORY STUDIES: Her hemoglobin is 9.6, hematocrit 31.2. Her creatinine has dropped from 2.01 do wn to 1.87. Electrolytes are essentially normal. ASSESSMENT: The patient is doing well following treatment of her acute renal failure. Yesterday wit h her off IV fluids, she has maintained appropriate hydration as her creatinine has dropped further f rom yesterday to today. Her appetite seems to be improved and I started on Marinol yesterday. It is hard to tell if this is making any difference, but for now, I believe that she would be well served to be discharged tomorrow (01/23), still taking Imodium, 2 mg t.i.d. and the same dose of Marinol as an appetite stimulant. I would thereafter plan to see her back in my office in 2 weeks to recheck he r labs. Hopefully, her malnutrition has improved by then to the point that I feel she is stable and appropriate to proceed with ileostomy reversal. Ms. Chou understands and agrees to proceed in this fashion.
[2018-01-22] MEDS: Mirtazapine 30 MG TAB PO SCH (21:01)
[2018-01-23] MEDS: Melatonin 3 MG TAB PO PRN (01:23)
[2018-01-23 08:00] VITALS: BP 115/59; TEMP 97.6
[2018-01-23] MEDS ORDERED: Fenofibrate Nanocrystallized 145 MG TAB PO SCH (09:00)
[2018-01-23] MEDS: Apixaban 5 MG TAB PO SCH (09:19)
[2018-01-23] MEDS: Loperamide HCl 2 MG CAP PO SCH ×2 (09:20→15:16)
[2018-01-23] MEDS: Amiodarone 200 MG TAB PO SCH (09:20)
[2018-01-23] MEDS: Dronabinol 2.5 MG CAP PO SCH (09:20)
--- NOTE | 2018-01-23 11:36 | PDOC.PN ---
- Subjective Encounter Start Date: 01/23/18 Encounter Start Time: 10:45 Subjective: feels better, is eating better -: amb in room, no abd pain -: ileostomy drainage is more semisolid but still watery at times - Objective Resuscitation Status: Resuscitation Status FULL:Full Resuscitation MAR Reviewed: Yes Vital Signs & Weight: Vital Signs (12 hours) Temp Pulse Resp BP Pulse Ox 01/23/18 07:56 97.6 F 72 16 115/59 L 94 L 01/23/18 07:49 97.8 F 69 16 94 L Weight Admit Weight 150 lb 9.564 oz Weight 170 lb 0.8 oz I&O: 01/22/18 01/23/18 01/24/18 06:59 06:59 06:59 Intake Total 1500 Output Total 500 550 Balance -500 950 Result Diagrams: 01/22/18 05:45 01/22/18 05:45 Phys Exam - Physical Examination HEENT: PERRLA, moist MMs Neck: no JVD, supple Respiratory: no wheezing, no rales Cardiovascular: RRR, no significant murmur Gastrointestinal: soft, non-tender, no distention, positive bowel sounds ileostomy has liq stools with some semisolid stools Musculoskeletal: no edema, pulses present Neurological: non-focal, moves all 4 limbs Psychiatric: normal affect, A&O x 3 Dx/Plan (1) Colon cancer Code(s): C18.9 - MALIGNANT NEOPLASM OF COLON, UNSPECIFIED Status: Acute Qualifiers: Comment: post op 11/10/17, left hemicolectomy with ileostomy, invasive adeno ca (2) Dyslipidemia Code(s): E78.5 - HYPERLIPIDEMIA, UNSPECIFIED Status: Chronic (3) Atrial fibrillation Code(s): I48.91 - UNSPECIFIED ATRIAL FIBRILLATION Status: Chronic Qualifiers: Atrial fibrillation type: paroxysmal Qualified Code(s): I48.0 - Paroxysmal atrial fibrillation (4) Acute renal failure Status: Resolved Qualifiers: - Plan hemostable -: appetite has improved, renal function will be closely monitored by her PCP -: encourage po fluid intake, low fiber -: to continue marinol and loperamide per gen surg advice -: is on eliquis and amiodarone * . Review of Systems - Medications/Allergies Allergies/Adverse Reactions: Allergies Allergy/AdvReac Type Severity Reaction Status Date / Time succinylcholine Allergy Verified 11/26/17 22:51 volatile anesthetic agents Allergy Uncoded 11/14/17 05:08 Medications: Current Medications Acetaminophen (Tylenol) 650 mg PO Q4H PRN PRN Reason: Headache/Fever or Pain Last Admin: 01/18/18 22:55 Dose: 650 mg Amiodarone HCl (Cordarone) 200 mg PO DAILY [facility] Last Admin: 01/23/18 09:20 Dose: 200 mg Apixaban (Eliquis) 2.5 mg PO BID [facility] Last Admin: 01/23/18 09:19 Dose: 2.5 mg Dronabinol (Marinol) 2.5 mg PO BID-AC [facility] Last Admin: 01/23/18 09:20 Dose: 2.5 mg Fenofibrate (Tricor) 145 mg PO DAILY [facility] Last Admin: 01/23/18 09:20 Dose: 145 mg Loperamide HCl (Imodium) 2 mg PO TID [facility] Last Admin: 01/23/18 09:20 Dose: 2 mg Melatonin (Melatonin) 3 mg PO HS PRN PRN Reason: Insomnia Last Admin: 01/23/18 01:23 Dose: 3 mg Mirtazapine (Remeron) 30 mg PO HS [facility] Last Admin: 01/22/18 21:01 Dose: 30 mg Ondansetron HCl (Zofran) 4 mg IVP Q6H PRN PRN Reason: Nausea/Vomiting Last Admin: 01/20/18 08:38 Dose: 4 mg Pantoprazole Sodium (Protonix) 40 mg PO DAILY [facility] Last Admin: 01/23/18 09:25 Dose: 40 mg Sertraline HCl (Zoloft) 100 mg PO DAILY [facility] Last Admin: 01/23/18 09:25 Dose: 100 mg Sodium Chloride (Flush - Normal Saline) 10 ml IVF Q12HR [facility] Last Admin: 01/23/18 09:25 Dose: 10 ml Sodium Chloride (Flush - Normal Saline) 10 ml IVF PRN PRN PRN Reason: Saline Flush
[2018-01-23 14:30] VITALS: BMI 25.8
--- NOTE | 2018-01-23 19:48 | DIS ---
DATE OF ADMISSION: 01/16/2018 DATE OF DISCHARGE: 01/23/2018 DISCHARGE DISPOSITION: To home. 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 PROCEDURES DONE DURING HOSPITALIZATION: The patient had a barium enema done, which showed focal cont ained leak measuring 1.8 x 1 cm at the lateral margin of the anastomosis. Chest x-ray done showed pl eural effusion. H&H 10 and 31, platelet count 280, MCV is 87. Discharge BUN and creatinine is 21 an d 1.8, albumin is 2.4. Admitting BUN and creatinine were 74 and 4.0 with serum bicarbonate of 14. INPATIENT CONSULTS: Dr. Childress for General Surgery. DISCHARGE PLAN: The patient to follow up with Dr. Childress in 2 weeks. She also needs to follow up w ith primary care physician in 1 week. DISCHARGE MEDICATIONS: Marinol 2.5 mg p.o. twice daily for 10 days to help with appetite, Imodium 2 mg p.o. 3 times daily, Remeron 30 mg p.o. at bedtime, Protonix 40 mg p.o. daily, sertraline 100 mg p. o. daily, TriCor 145 mg p.o. daily, Eliquis 2.5 mg p.o. twice daily, Norvasc 5 mg daily, amiodarone 2 00 mg daily. ALLERGIES: Succinylcholine. BRIEF COURSE DURING HOSPITALIZATION: The patient initially got admitted on the after she compla ined of profuse watery yellowish output from her ileostomy. She also had nausea, vomiting, and had l oss of appetite on arrival. She was found to be in acute renal failure due to high output ileostomy. It is unclear if she had any bacterial infection contributing to this. The patient was aggressivel y hydrated. She has had consultation with Dr. Childress for General Surgery as well. The patient was placed on Marinol and loperamide, both of which have helped her. Her ileostomy output is more semi-s olid at the time of discharge. Her appetite is also better with Marinol at present. She needs to co ntinue the same for another 10 days and follow up with Dr. Childress as advised. Please see a face-to- face documentation on [facility] for the day of discharge.
== END 2018-01-23 15:48 | disposition home or self-care (01) | DRG 682 ==
LOC: ERS 11:17 → ONC 13:33
PROVIDERS: ADMIT Internal Medicine; ATTEND Internal Medicine
DX: N17.9 Acute kidney failure, unspecified (principal); J96.00 Acute respiratory failure, unspecified whether with hypoxia or hypercapnia; E87.4 Mixed disorder of acid-base balance; E46 Unspecified protein-calorie malnutrition; C77.2 Secondary and unspecified malignant neoplasm of intra-abdominal lymph nodes; E87.5 Hyperkalemia; I48.0 Paroxysmal atrial fibrillation; E86.0 Dehydration; K94.13 Enterostomy malfunction; D50.9 Iron deficiency anemia, unspecified; E78.5 Hyperlipidemia, unspecified; F32.9 Major depressive disorder, single episode, unspecified; I10 Essential (primary) hypertension; Z79.01 Long term (current) use of anticoagulants; Z88.8 Allergy status to other drugs, medicaments and biological substances; Z90.49 Acquired absence of other specified parts of digestive tract; Z68.25 Body mass index [BMI] 25.0-25.9, adult; Z85.038 Personal history of other malignant neoplasm of large intestine
CPT/HCPCS: 36415; 71045; 74280; 80048; 80053; 83735; 85014; 85018; 85025; 85049; 93005; 96361; 96374; A4216; J2405; J7070; Q0167

== ENCOUNTER 2018-03-24 09:25 | Inpatient (IN) | payer MEDICARE, OTHER ==
[~2018-03-24 09:25] MED LIST: Glycopyrrolate 0.2 MG/ML 5 ML SYRINGE ONE; Lidocaine 1% PF 5 ML VIAL ONE; Ondansetron HCl/PF 4 MG/2 ML Vial ONE; PROPOFOL 200 MG/20 ML VIAL ONE
[2018-03-24] MEDS ORDERED: Fentanyl 100 MCG/2 ML VIAL ONE ×2 (13:23→13:57)
[2018-03-24] MEDS ORDERED: Midazolam HCl 2 mg/2 ml Vial ONE ×2 (13:23→13:57)
[2018-03-24] MEDS ORDERED: Dexamethasone 4 mg/ml Vial ONE (13:24)
[2018-03-24 13:43] LABS: #Basophils 0.1 thou/uL (0.0-0.2); #Eosinphils 0.2 thou/uL (0.0-0.7); #Lymphocytes 3.5 thou/uL (1.20-3.40); #Monocytes 0.5 thou/uL (0.11-0.59); %Basophils 0.9 % (0.0-1.0); %Eosinophils 1.9 % (0.0-10.0); %Lymphocytes 42.6 % (21.0-51.0); %Neutrophils 48.7 % (42.0-75.0); Hemoglobin 11.6 g/dL (12.0-16.0); Mean Corpuscular HGB CONC 30.6 g/dL (32.0-36.0); Mean Corpuscular Hemoglobin 27.8 pg (27.0-31.0); Mean Corpuscular Volume 90.8 fl (81.0-99.0); Mean Platelet Volume 7.8 fL (7.4-10.4); Platelet Count 354 thou/uL (130-400); RBC Distribution Width 15.5 % (11.5-14.5); Red Blood Cell (RBC) Count 4.17 mill/uL (4.20-5.40); White Blood Cell (WBC) Count 8.1 thou/uL (4.8-10.8)
[2018-03-24] MEDS ORDERED: Fentanyl 250 MCG/5 ML VIAL ONE (13:47)
[2018-03-24] MEDS ORDERED: Propofol 1,000 MG/100 ML VIAL IV ONE (13:47)
[2018-03-24] MEDS ORDERED: Propofol 500 MG/50 ML VIAL ONE (13:47)
[2018-03-24] MEDS ORDERED: Lidocaine 1% w/Epinephrine 1:200K 30 ML VIAL ONE (13:48)
[2018-03-24] MEDS ORDERED: Bupivacaine/Epinephrine 0.25% 30 ML VIAL ONE (13:48)
[2018-03-24] MEDS ORDERED: Ketorolac Tromethamine 30 MG/ML VIAL ONE (13:53)
[2018-03-24] MEDS ORDERED: Sodium Chloride 0.9% 100 ML ONE (13:53)
[2018-03-24] MEDS ORDERED: cefOXitin 2 GM VIAL ONE (13:53)
[2018-03-24] MEDS ORDERED: Ketamine 50 MG/ML VIAL ONE (13:57)
[2018-03-24 14:09] LABS: Anion Gap 14 mmol/L (10-20); BUN (Urea Nitrogen) 23 mg/dL (9.8-20.1); Calc. Creatinine Clearance 22 mL/min (70-130); Calcium 9.7 mg/dL (7.8-10.44); Carbon Dioxide 20 mmol/L (23-31); Chloride 109 mmol/L (98-107); Estimated GFR-MDRD 23; Glucose 91 mg/dL (83-110); Potassium 4.6 mmol/L (3.5-5.1); Sodium 138 mmol/L (136-145)
[2018-03-24 14:13] LABS: INR-International Normal Ratio 1.2; Prothrombin Time 15.8 SEC (12.0-14.7)
[2018-03-24] MEDS ORDERED: Bupivacaine HCl 0.5%/Epinephrine 1:200,000/PF 30 ml Vial ONE (15:28)
[2018-03-24] MEDS ORDERED: Promethazine HCl 25 MG/ML VIAL IM PRN ×2 (17:08→18:59)
[2018-03-24] MEDS ORDERED: Promethazine HCl 25 MG/ML VIAL SLOW IVP PRN (17:08)
[2018-03-24] MEDS ORDERED: Ondansetron HCl/PF 4 MG/2 ML Vial IVP PRN ×2 (17:08→18:59)
[2018-03-24] MEDS ORDERED: hydrALAZINE 20 MG/ML VIAL SLOW IVP PRN (18:59)
[2018-03-24] MEDS ORDERED: Morphine 4 MG/ML VIAL SLOW IVP PRN ×2 (19:30)
[2018-03-24] MEDS: D5 1/2 NS w/20 mEq KCL 1,000 ML IV SCH (19:34)
[2018-03-24] MEDS: Ketorolac Tromethamine 30 MG/ML VIAL IVP SCH (19:46)
[2018-03-24] MEDS: Acetaminophen 1,000 MG in Premix Bag 1 BAG IVPB SCH (19:47)
[2018-03-24] MEDS: Mirtazapine 15 MG TAB PO SCH (19:47)
[2018-03-24] MEDS: Famotidine 20 MG TAB PO SCH (19:47)
[2018-03-24] MEDS: Famotidine/PF 20 mg/2ml Vial SLOW IVP SCH (19:48)
[2018-03-24 20:56] VITALS: BMI 22.1
[2018-03-24] MEDS ORDERED: Enoxaparin Sodium 40 MG/0.4 ML SYRINGE SC SCH (21:00)
[2018-03-24] MEDS: cefOXitin Sodium 1 GM in Sodium Chloride 0.9% 100 ML IVPB SCH (21:01)
--- NOTE | 2018-03-24 21:36 | OP ---
DATE OF OPERATION: 03/24/2018 PREOPERATIVE DIAGNOSIS: Unnecessary/undesired ileostomy. POSTOPERATIVE DIAGNOSIS: Unnecessary/undesired ileostomy. OPERATION PERFORMED: Ileostomy closure. SURGEON: Alton Childress M.D. ANESTHESIA: General endotracheal. INDICATIONS: The patient is an 87-year-old white female. She had a right hemicolectomy complicated by an anastomotic leak. When the anastomotic leak was repaired, she was given a proximal diverting i leostomy. She returns at this time for ileostomy closure several months after her original surgery. DESCRIPTION OF OPERATION: Informed consent was obtained. The patient was taken to the operating vanessa m where general endotracheal anesthesia was obtained with the patient in supine position. The ileost addison was closed using a running locking suture of 2-0 silk. The abdomen was then prepped with ChloraP rep and draped in sterile fashion. Local anesthetic was infiltrated using 1% lidocaine with epinephr ine. The patient had received a TAP block using a Marcaine preoperatively. Elliptical incision was created in an oblique fashion. Dissection was carried through skin and subcu taneous tissue, and carried adjacent to the bowel down to the fascia. The dissection was carried int o the abdominal cavity. The bowel was easily mobilized up in the wound. There were some adhesions i ntra-abdominal. Most of these were fairly loose and were taken down using combination of careful theron nt and sharp dissection. A double stapled anastomosis was created using a JORDON-75 stapler. The exclu ded segment, which of course included the double barrel ileostomy, was taken down by dividing the rem aining mesentery between clamps and 2-0 silk ties. The specimen was passed off the field. The anast omosis was buttressed with several interrupted sutures of 3-0 silk and the mesenteric defect was also closed with 3-0 silk. The bowel was then dropped back down to the abdominal cavity. The fascia was closed in two layers using a running suture of #1 PDS. A closing tray was utilized with new gowns, gloves and equipment. The wound was irrigated using 2 li ters of saline and a Pulsavac device. The subcutaneous tissue was closed using running suture of 3-0 Vicryl and the skin edges closed with skin omar. Dry gauze dressing was placed externally. Ther e were no complications. The patient tolerated the procedure well and was taken to recovery room in stable condition.
--- NOTE | 2018-03-24 23:51 | EKG ---
Test Reason : PREOP Blood Pressure : / mmHG Vent. Rate : 085 BPM Atrial Rate : 085 BPM P-R Int : 218 ms QRS Dur : 096 ms QT Int : 398 ms P-R-T Axes : 060 010 036 degrees QTc Int : 473 ms Sinus rhythm with 1st degree A-V block Otherwise normal ECG Confirmed by SHERINE GARCIA, DR. Jernigan ([id number]) on 03/24/2018 11:50:53 PM Referred By: PER Confirmed By:DR. Rere BASURTO MD
[2018-03-25] MEDS: Ketorolac Tromethamine 30 MG/ML VIAL IVP SCH ×4 (00:09→17:52)
[2018-03-25] MEDS: Acetaminophen 1,000 MG in Premix Bag 1 BAG IVPB SCH ×3 (00:09→14:27)
[2018-03-25] MEDS: D5 1/2 NS w/20 mEq KCL 1,000 ML IV SCH ×3 (05:46→21:32)
[2018-03-25] MEDS: cefOXitin Sodium 1 GM in Sodium Chloride 0.9% 100 ML IVPB SCH (05:46)
[2018-03-25 06:03] LABS: #Lymphocytes 1.9 thou/uL (1.20-3.40); #Monocytes 0.6 thou/uL (0.11-0.59); #Neutrophils 5.5 thou/uL (1.40-6.50); %Basophils 0.2 % (0.0-1.0); %Eosinophils 0.2 % (0.0-10.0); %Lymphocytes 23.3 % (21.0-51.0); %Monocytes 7.5 % (0.0-10.0); %Neutrophils 68.9 % (42.0-75.0); Hemoglobin 9.4 g/dL (12.0-16.0); Mean Corpuscular HGB CONC 31.4 g/dL (32.0-36.0); Mean Corpuscular Hemoglobin 28.5 pg (27.0-31.0); Mean Corpuscular Volume 90.6 fl (81.0-99.0); Mean Platelet Volume 7.9 fL (7.4-10.4); Platelet Count 286 thou/uL (130-400); RBC Distribution Width 15.5 % (11.5-14.5)
[2018-03-25 06:14] LABS: Anion Gap 11 mmol/L (10-20); BUN (Urea Nitrogen) 21 mg/dL (9.8-20.1); Calc. Creatinine Clearance 24 mL/min (70-130); Calcium 8.4 mg/dL (7.8-10.44); Carbon Dioxide 21 mmol/L (23-31); Chloride 110 mmol/L (98-107); Estimated GFR-MDRD 25; Glucose 112 mg/dL (83-110); Potassium 4.6 mmol/L (3.5-5.1); Sodium 137 mmol/L (136-145)
[2018-03-25] MEDS: Amlodipine 5 MG TAB PO SCH (08:17)
[2018-03-25] MEDS: Amiodarone 200 MG TAB PO SCH (08:17)
[2018-03-25] MEDS: Famotidine 20 MG TAB PO SCH (08:17)
[2018-03-25] MEDS ORDERED: Prevnar 13-Val Conj/PF 0.5 ML SYRINGE IM ONE (09:00)
[2018-03-25] MEDS: Famotidine/PF 20 mg/2ml Vial SLOW IVP SCH (09:31)
--- NOTE | 2018-03-25 14:03 | PRG ---
DATE OF SERVICE: 03/25/2018 SUBJECTIVE: Ms. Chou is postoperative day #1 following closure of her right lower quadrant ileosto my. She has no complaints. She denies any pain. She is taking no narcotic pain medication. She to lerated clear liquid diet and notes appropriate appetite. She denies nausea or vomiting. She notes that she has had a bowel movement already that is liquid. PHYSICAL EXAMINATION: VITAL SIGNS: She is afebrile. Pulse is 64, blood pressure 116/66. LUNGS: Clear to auscultation. ABDOMEN: Soft, nontender. Her incision still has a dressing intact over it. LABORATORY STUDIES: Her hemoglobin is low at 9.4, white blood cell count is 8.0. Her basic metaboli c panel shows that her elevated creatinine of 2.07 yesterday, it has dropped down to 1.92. ASSESSMENT: She is doing well following surgery. PLAN: She will be advanced to full liquids today. If she appears to continue to do well, I would an ticipate discharge tomorrow.
[2018-03-25] MEDS: diphenhydrAMINE 25 MG CAP PO PRN ×2 (14:28→19:43)
[2018-03-25] MEDS ORDERED: HYDROcodone/Acetaminophen 7.5/325 mg Tablet PO PRN ×2 (16:18)
[2018-03-25] MEDS ORDERED: Hydrocortisone 1% Cream 30 GM TUBE TOP PRN (17:35)
[2018-03-25] MEDS: Mirtazapine 15 MG TAB PO SCH (19:38)
[2018-03-25] MEDS ORDERED: Enoxaparin Sodium 30 MG/0.3 ML SYRINGE SC SCH (21:00)
[2018-03-26 05:46] LABS: #Eosinphils 0.3 thou/uL (0.0-0.7); #Lymphocytes 2.4 thou/uL (1.20-3.40); #Monocytes 0.5 thou/uL (0.11-0.59); #Neutrophils 4.8 thou/uL (1.40-6.50); %Basophils 0.4 % (0.0-1.0); %Eosinophils 4.2 % (0.0-10.0); %Lymphocytes 29.4 % (21.0-51.0); %Monocytes 5.8 % (0.0-10.0); %Neutrophils 60.3 % (42.0-75.0); Mean Corpuscular HGB CONC 31.8 g/dL (32.0-36.0); Mean Corpuscular Hemoglobin 28.9 pg (27.0-31.0); Mean Platelet Volume 7.8 fL (7.4-10.4); Platelet Count 278 thou/uL (130-400); RBC Distribution Width 15.4 % (11.5-14.5); Red Blood Cell (RBC) Count 3.12 mill/uL (4.20-5.40)
[2018-03-26 06:09] LABS: Anion Gap 7 mmol/L (10-20); BUN (Urea Nitrogen) 19 mg/dL (9.8-20.1); Calc. Creatinine Clearance 25 mL/min (70-130); Calcium 8.3 mg/dL (7.8-10.44); Carbon Dioxide 22 mmol/L (23-31); Chloride 113 mmol/L (98-107); Estimated GFR-MDRD 27; Glucose 75 mg/dL (83-110); Potassium 4.2 mmol/L (3.5-5.1); Sodium 138 mmol/L (136-145)
[2018-03-26] MEDS: Amlodipine 5 MG TAB PO SCH (08:37)
[2018-03-26] MEDS: Amiodarone 200 MG TAB PO SCH (08:38)
[2018-03-26] MEDS ORDERED: Famotidine 20 MG TAB PO SCH (09:00)
[2018-03-26 12:03] VITALS: BP 109/65; TEMP 97.8
--- NOTE | 2018-03-26 12:31 | DIS ---
DATE OF ADMISSION: 03/24/2018 DATE OF DISCHARGE: 03/26/2018 ADMISSION DIAGNOSES: Unnecessary/undesired ileostomy, history of colon cancer. DISCHARGE DIAGNOSES: Unnecessary/undesired ileostomy, history of colon cancer. PROCEDURES PERFORMED: Ileostomy reversal/closure. ADMISSION HISTORY: The patient is an 87-year-old female. She has a history of right colectomy for c olon cancer in 11/2017. She had an anastomotic leak for which she required repair and a proximal div erting ileostomy. She presents at this time for ileostomy reversal. HOSPITAL COURSE: She underwent uneventful surgery on the day of her presentation. She has done very well since the surgery. She denies any pain and is taking no narcotic pain medicine postoperatively . She has tolerated clear liquids and advanced quickly to full liquids. She has had several loose b owel movements. She denies nausea or vomiting. She is ambulating. Her vital signs have been entirely normal. She has been afebrile with a pulse of 66 and blood pressu re of 116/69. Her examination has been benign and her incision is healing nicely without evidence of infection. Her laboratory study was likewise been unremarkable. Today, her white blood cell count is 8 with hemoglobin of 9. Additionally, her creatinine has dropped from 2.07 down to 1.78. In [facility], she has done very well following her surgery. She appears to be tolerating her diet well and is stable for discharge. I have asked her to follow up with myself in my office in 10-14 days for stap le removal from her incision site. She is given no new prescriptions at this time. She is to resume all of her home medications. I instructed her to take her Imodium that she has been taking if she c ontinues to have diarrhea, but otherwise she may discontinue this.
== END 2018-03-26 13:04 | disposition home health service (06) | DRG 331 ==
LOC: SURG A 13:10 → SJJU 18:45
PROVIDERS: ADMIT Specialist; ATTEND Specialist
PROC: 0DBB0ZZ Excision of Ileum, Open Approach (ICD-10-PCS; principal; 2018-03-24)
DX: Z43.2 Encounter for attention to ileostomy (principal); Z98.0 Intestinal bypass and anastomosis status; Z85.038 Personal history of other malignant neoplasm of large intestine
CPT/HCPCS: 36415; 80048; 82378; 83036; 85025; 85610; 88304; 93005; 93010; J0131; J0670; J0694; J1100; J1650; J1885; J2001; J2250; J2405; J2704; J3010; J7050; S0028

== ENCOUNTER 2018-04-10 10:13 | Outpatient (CLI) | payer MEDICARE | END 2018-04-10 10:14 | disposition home or self-care (01) | LOC: BICCT 10:13 | PROVIDERS: ATTEND Specialist | DX: C18.4 Malignant neoplasm of transverse colon (principal); R97.0 Elevated carcinoembryonic antigen [CEA]; J90 Pleural effusion, not elsewhere classified | CPT/HCPCS: 71250; 74177 ==

== ENCOUNTER 2018-05-01 10:45 | Day surgery (SDC) | payer MEDICARE ==
[2018-04-30 11:16] VITALS: BMI 25.2
[~2018-05-01 10:45] MED LIST changes: -Glycopyrrolate 0.2 MG/ML 5 ML SYRINGE ONE; -Lidocaine 1% PF 5 ML VIAL ONE; -Ondansetron HCl/PF 4 MG/2 ML Vial ONE
[2018-05-01 11:12] LABS: #Basophils 0.1 thou/uL (0.0-0.2); #Eosinphils 0.4 thou/uL (0.0-0.7); #Lymphocytes 2.5 thou/uL (1.20-3.40); #Monocytes 0.5 thou/uL (0.11-0.59); #Neutrophils 4.1 thou/uL (1.40-6.50); %Basophils 1.1 % (0.0-1.0); %Lymphocytes 33.2 % (21.0-51.0); %Neutrophils 53.7 % (42.0-75.0); Hemoglobin 8.9 g/dL (12.0-16.0); Mean Corpuscular HGB CONC 31.2 g/dL (32.0-36.0); Mean Corpuscular Hemoglobin 27.5 pg (27.0-31.0); Mean Corpuscular Volume 88.1 fL (78.0-98.0); Mean Platelet Volume 7.4 fL (7.4-10.4); Platelet Count 313 thou/uL (130-400); RBC Distribution Width 13.9 % (11.5-14.5); Red Blood Cell (RBC) Count 3.25 mill/uL (4.20-5.40); White Blood Cell (WBC) Count 7.6 thou/uL (4.8-10.8)
[2018-05-01] MEDS ORDERED: CEFAZOLIN/Water 2 GM/20 ML SYRINGE ONE (11:26)
[2018-05-01] MEDS ORDERED: Ketorolac Tromethamine 30 MG/ML VIAL ONE (11:27)
[2018-05-01 11:29] LABS: Anion Gap 13 mmol/L (10-20); BUN (Urea Nitrogen) 25 mg/dL (9.8-20.1); Calc. Creatinine Clearance 27 mL/min (70-130); Calcium 9.2 mg/dL (7.8-10.44); Carbon Dioxide 25 mmol/L (23-31); Chloride 106 mmol/L (98-107); Estimated GFR-MDRD 26; Glucose 93 mg/dL (83-110); Potassium 4.2 mmol/L (3.5-5.1); Sodium 140 mmol/L (136-145)
[2018-05-01] MEDS ORDERED: Lidocaine 1% (PF) 30 ML VIAL ONE (12:03)
[2018-05-01] MEDS ORDERED: Bupivacaine/Epinephrine 0.25% 30 ML VIAL ONE (12:03)
[2018-05-01] MEDS ORDERED: Midazolam HCl 2 mg/2 ml Vial ONE (12:10)
[2018-05-01] MEDS ORDERED: Fentanyl 100 MCG/2 ML VIAL ONE (12:10)
[2018-05-01] MEDS ORDERED: PROPOFOL 20 ML ONE (12:44)
--- NOTE | 2018-05-01 14:28 | RAD ---
AP VIEW OF THE CHEST: INDICATION: Status post MediPort placement. COMPARISON: Prior chest radiograph dated 01/19/18. FINDINGS: There is a right subclavian chest wall port in place. The tip of the catheter is seen at the cavoatr ial junction. Cardiomegaly persists. There is improvement aeration of the left lower lobe. No conf luent airspace opacity, pleural effusion, or pneumothorax evident. No acute osseous abnormality is e vident. IMPRESSION: Right chest wall port. POS: [facility]
--- NOTE | 2018-05-02 16:35 | OP ---
DATE OF SURGERY: 05/01/2018 PREOPERATIVE DIAGNOSIS: Metastatic colon cancer. POSTOPERATIVE DIAGNOSIS: Metastatic colon cancer. OPERATION PERFORMED: Placement of right subclavian low profile power compatible MediPort. SURGEON: Alton Childress M.D. ANESTHESIA: Total intravenous anesthesia with local using 0.25% Marcaine with epinephrine. INDICATIONS: The patient is an 87-year-old white female. She presents with findings of metastatic c olon cancer with multiple lesions within her liver. Chemotherapy has been recommended. She presents for MediPort placement for this purpose. DESCRIPTION OF OPERATION: Informed consent was obtained. The patient was taken to the operating vanessa m where total intravenous anesthesia was obtained with the patient in supine position. Right pericla vicular area was prepped with ChloraPrep and draped in sterile fashion. Local anesthetic was infiltr ated and a large gauge needle was passed under the clavicle in the subclavian vein. Guidewire was pa ssed through the needle and fluoroscopically confirmed to enter the superior vena cava. Additional l ocal anesthetic was infiltrated and transverse incision was created based on needle insertion site. A subcutaneous pocket was dissected inferiorly. Introducer dilator was passed over the guidewire und er fluoroscopic guidance. The guidewire and dilator were removed, and the catheter was passed throug h the introducer. The tip of the catheter was positioned at the atriocaval junction and the catheter was trimmed to the appropriate length and secured to the locking hub of the MediPort. The port was then placed in the subcutaneous pocket where it was secured to the pectoral fascia with 2 interrupted sutures of 3-0 Prolene. The incision was then closed in layers with 3-0 and 4-0 Monocryl. Addition al local anesthetic was infiltrated. The port was cannulated with a Pittman needle and it aspirated bl ood freely and was flushed with heparinized saline. Dermabond was placed externally on the skin inci naheed. There were no complications. Blood loss was negligible. The patient tolerated the procedure well and was taken to recovery room in stable condition. FINDINGS: The patient had normal anatomy. A right subclavian low profile port was placed uneventful ly. There were no complications and essentially no blood loss. The patient tolerated the procedure well.
== END 2018-05-01 15:00 | disposition home or self-care (01) ==
LOC: SDC 10:45
PROVIDERS: ATTEND Specialist
PROC: 05H533Z Insertion of Infusion Device into Right Subclavian Vein, Percutaneous Approach (ICD-10-PCS; principal; 2018-05-01)
DX: C18.4 Malignant neoplasm of transverse colon (principal); C78.7 Secondary malignant neoplasm of liver and intrahepatic bile duct; Z79.899 Other long term (current) drug therapy; Z88.4 Allergy status to anesthetic agent
CPT/HCPCS: 36561; 71045; 80048; 85025; C1788; 36415; J0131; J1642; J1885; J2001; J2250; J2704; J3010

== ENCOUNTER 2018-08-01 11:58 | Inpatient (IN) | payer MEDICARE ==
[~2018-08-01 11:58] MED LIST changes: +ISOVUE-370 76%-LOCM 1 ML ONE; -PROPOFOL 200 MG/20 ML VIAL ONE
--- NOTE | 2018-08-01 13:34 | RAD ---
PORTABLE CHEST ONE VIEW: 08/01/2018 1:10 p.m. HISTORY: Neck pain and swelling. COMPARISON: 01/19/2018 FINDINGS: The heart size is normal. A right-sided Port-A-Cath is present with the tip in the projection of the SVC. There is suggestion of a small left pleural effusion and mild atelectasis seen at the left júnior g base. POS: [facility]
[2018-08-01] MEDS ORDERED: Piperacillin/Tazobactam 3.375 GM VIAL ONE (13:43)
[2018-08-01] MEDS ORDERED: Sodium Chloride 0.9% 100 ML ONE (13:43)
[2018-08-01 13:44] LABS: #Eosinphils 0.2 thou/uL (0.0-0.7); #Lymphocytes 1.2 thou/uL (1.20-3.40); #Neutrophils 6.1 thou/uL (1.40-6.50); %Basophils 0.1 % (0.0-1.0); %Eosinophils 2.1 % (0.0-10.0); %Lymphocytes 13.7 % (21.0-51.0); %Monocytes 12.3 % (0.0-10.0); %Neutrophils 71.9 % (42.0-75.0); Hemoglobin 11.6 g/dL (12.0-16.0); Mean Corpuscular HGB CONC 30.8 g/dL (32.0-36.0); Mean Corpuscular Hemoglobin 27.9 pg (27.0-31.0); Mean Corpuscular Volume 90.6 fL (78.0-98.0); Mean Platelet Volume 10.3 fL (7.4-10.4); Platelet Count 144 thou/uL (130-400); RBC Distribution Width 20.4 % (11.5-14.5); Red Blood Cell (RBC) Count 4.14 mill/uL (4.20-5.40); White Blood Cell (WBC) Count 8.5 thou/uL (4.8-10.8)
[2018-08-01 14:04] LABS: ALT (SGPT) Less than 7 U/L (8-55); AST (SGOT) 21 U/L (5-34); Albumin 3.8 g/dL (3.4-4.8); Alkaline Phosphatase 81 U/L (40-150); Anion Gap 13 mmol/L (10-20); BUN (Urea Nitrogen) 18 mg/dL (9.8-20.1); Bilirubin, Total 0.6 mg/dL (0.2-1.2); Calc. Creatinine Clearance 0 mL/min (70-130); Calcium 9.5 mg/dL (7.8-10.44); Carbon Dioxide 26 mmol/L (23-31); Chloride 107 mmol/L (98-107); Estimated GFR-MDRD 31; Globulin 3.4 g/dL (2.4-3.5); Glucose 93 mg/dL (83-110); Protein, Total 7.2 g/dL (6.0-8.3); Sodium 143 mmol/L (136-145)
[2018-08-01 14:27] LABS: Potassium 2.8 mmol/L (3.5-5.1)
[2018-08-01] MEDS ORDERED: Potassium Chloride 20 MEQ/100 ML PREMIX BAG ONE (14:48)
[2018-08-01] MEDS: Potassium Chloride 10 MEQ in Premix Bag 1 BAG IVPB SCH ×3 (15:09→21:57)
--- NOTE | 2018-08-01 15:12 | CT ---
CT NECK SOFT TISSUE WITH IV CONTRAST: HISTORY: Right neck swelling. The patient is currently on chemotherapy for colon cancer with liver metastases . The patient's last chemotherapy was on 07/21/2018. FINDINGS: There is enlargement of the right parotid and submandibular glands with adjacent inflammatory changes . These findings are suspicious for inflammation/infection. Some of the L2 lymph nodes on the right are enlarged. No abnormally loculated fluid collections are seen to suggest abscess formation. The airway is patent. There are degenerative changes in the spine. Low density lesions in the thyroid gland would be better evaluated with an ultrasound on a nonemergen t basis. A small to moderate left pleural effusion is noted. The visualized paranasal sinuses and mastoid air cells are well aerated. IMPRESSION: Findings are suspicious for inflammation/infection involving the right parotid and submandibular glan ds. POS: [facility]
[2018-08-01] MEDS ORDERED: Guaifenesin DM 100-10/5 ML UDCUP PO PRN (16:46)
[2018-08-01] MEDS ORDERED: Cepastat Lozenges 1 LOZ PO PRN (16:46)
[2018-08-01] MEDS ORDERED: Acetaminophen 325 MG TAB PO PRN (16:46)
[2018-08-01] MEDS ORDERED: Clindamycin/D5W 600 mg/50 ml Premix Bag ONE (16:52)
[2018-08-01] MEDS ORDERED: Ondansetron HCl/PF 4 MG/2 ML Vial ONE (17:44)
[2018-08-01] MEDS: Sodium Chloride 0.9% 1,000 ML IV SCH (18:38)
--- NOTE | 2018-08-01 18:47 | HP ---
REASON FOR ADMISSION: Right parotid, submandibular gland cellulitis, immunosuppressed. HISTORY OF PRESENT ILLNESS: The patient felt a knot in her right parotid area on Friday. This kept getting bigger. She finally [facility] and got an appointment to see Dr. Forrest on . She was prescribed ciprofloxacin. The patient took nearly 4 tablets of this twice a day. This was unrelenting and started to worsen with spread to her neck, anterior neck and chest area with red ness and swelling. All of this concerned as she was on for chemotherapy for colon cancer and the pat shirin came to emergency room. She has not had any fever at home. The patient has loss of appetite. She last received her chemotherapy on the and is due for the next round on Friday. PAST MEDICAL AND SURGICAL HISTORY: History of colon cancer with metastasis to liver, on chemotherapy ; hypertension; chronic atrial fibrillation; dyslipidemia; history of ileostomy with reversal; histor y of right hemicolectomy; cholecystectomy; hysterectomy; Port-A-Cath; eye surgery. CURRENT MEDICATIONS: Please note patient does not recall her medications and will try to obtain the same from our pharmacy when it opens. Per ER records, the patient is on amiodarone 200 mg daily, Nor vasc 5 mg daily, dronabinol 2.5 mg twice daily, Eliquis 2.5 mg twice daily, fenofibrate 145 mg daily, mirtazapine 30 mg p.o. at bedtime, Protonix 40 mg daily, sertraline 100 mg daily, Zofran p.r.n., cip rofloxacin 500 mg twice daily from Friday. ALLERGIES: SUCCINYLCHOLINE. PERSONAL HISTORY: Does not abuse alcohol or drugs. No history of smoking. Her grandson lives with her. The patient ambulates with a cane at times, but mostly by herself. FAMILY HISTORY: Both parents at the age of 43 years. Mother of malignant hyperthermia. F ather of likely lymphoma and its complications. REVIEW OF SYSTEMS: The following complete review of systems was negative, unless otherwise mentioned in the HPI or below: Constitutional: Weight loss or gain, ability to conduct usual activities. Sk in: Rash, itching. Eyes: Double vision, pain. ENT/Mouth: Nose bleeding, neck stiffness, pain, te nderness. Cardiovascular: Palpitations, dyspnea on exertion, orthopnea. Respiratory: Shortness of breath, wheezing, cough, hemoptysis, fever or night sweats. Gastrointestinal: Poor appetite, abdom inal pain, heartburn, nausea, vomiting, constipation, or diarrhea. Genitourinary: Urgency, frequenc y, dysuria, nocturia. Musculoskeletal: Pain, swelling. Neurologic/Psychiatric: Anxiety, depressio n. Allergy/Immunologic: Skin rash, bleeding tendency. CODE STATUS: FULL. Power of state attorney is her 2 sons. PHYSICAL EXAMINATION: GENERAL: The patient is an 87-year-old female who is currently not in any distress. VITAL SIGNS: Blood pressure 160/70, pulse 66 per minute, respiratory rate 18 per minute, temperature 97.5 degrees Fahrenheit, saturating 94% on room air. NECK: Supple, no elevated JVD. There is erythema and fullness in the right parotid and right subman dibular area. This erythema and swelling extends to the anterior neck and to the median chest. Ther e is mild tenderness to deep palpation over the parotid and submandibular glands. HEENT: Extraocular muscles intact. Pupils reacting to light. Oral cavity mucous membranes are dry. No exudates or congestion. CARDIOVASCULAR: S1, S2 heard. Regular rhythm. RESPIRATORY: Air entry 1+ bilaterally. No rales or rhonchi. ABDOMEN: Soft, bowel sounds heard. No tenderness, rigidity or guarding. EXTREMITIES: No peripheral edema or calf tenderness. VASCULAR: Peripheral pulses 2+ bilateral, no ischemic ulcerations or gangrene. CENTRAL NERVOUS SYSTEM: No gross focal deficits noted. Patient is alert, awake, and oriented well. PSYCHIATRIC: The patient's mood is euthymic. No hallucinations or delusions. LABORATORY AND X-RAY FINDINGS: White count of 8, H and H 11 and 37, platelet count is 144 with 71% n eutrophils, MCV is 90. Potassium is 2.8, BUN 18, creatinine is 1.5. Serum bicarbonate is 26, glucos e 93, lactic acid 2.0. Liver enzymes within normal limits. CRP is 25.6, albumin is 3.8. Chest x-ra y done shows no acute infiltrate. CT soft tissue neck with IV contrast done shows findings suspiciou s for inflammation/infection involving the right parotid and submandibular glands. CLINICAL IMPRESSION AND PLAN: The patient will be admitted to medical floor for right submandibular gland and right parotid gland inflammation and cellulitis of the neck area. She will be placed on va ncomycin and clindamycin. She will be on normal saline at 70 mL per hour. She will be on Cepacol lo zenges and frequent oral care will be given. The patient does not like Ensure. We will await Dietar y consultation for help with nutrition. We will continue her amiodarone, Eliquis, Norvasc, Remeron, and sertraline as before. Her hypokalemia will be replaced IV. We will continue to closely monitor her on medical floor.
[2018-08-01 19:39] VITALS: BMI 24.0
[2018-08-01] MEDS: Dronabinol 2.5 MG CAP PO SCH (20:30)
[2018-08-01] MEDS: Docusate 100 MG CAP PO SCH (20:30)
[2018-08-01] MEDS: Mirtazapine 30 MG TAB PO SCH (20:30)
[2018-08-01] MEDS: Famotidine 20 MG TAB PO SCH (20:30)
[2018-08-01] MEDS: Apixaban 2.5 MG TAB PO SCH (20:30)
[2018-08-01] MEDS ORDERED: Vancomycin HCl 1 GM in Premix Bag 1 BAG IVPB SCH (21:00)
[2018-08-01] MEDS: Ondansetron HCl/PF 4 MG/2 ML Vial IVP PRN (21:57)
[2018-08-01] MEDS ORDERED: Clindamycin/D5W 600 MG in Premix Bag 1 BAG IVPB SCH (22:00)
[2018-08-01] MEDS ORDERED: Melatonin 3 MG TAB PO PRN (22:27)
[2018-08-02] MEDS: Clindamycin/D5W 600 MG in Premix Bag 1 BAG IVPB SCH ×3 (00:56→16:11)
[2018-08-02 05:39] LABS: #Eosinphils 0.3 thou/uL (0.0-0.7); #Lymphocytes 1.2 thou/uL (1.20-3.40); #Monocytes 0.7 thou/uL (0.11-0.59); #Neutrophils 3.1 thou/uL (1.40-6.50); %Basophils 0.2 % (0.0-1.0); %Eosinophils 5.6 % (0.0-10.0); %Lymphocytes 23.1 % (21.0-51.0); %Monocytes 12.8 % (0.0-10.0); %Neutrophils 58.3 % (42.0-75.0); Hemoglobin 9.5 g/dL (12.0-16.0); Mean Corpuscular HGB CONC 31.3 g/dL (32.0-36.0); Mean Corpuscular Hemoglobin 28.1 pg (27.0-31.0); Mean Corpuscular Volume 89.9 fL (78.0-98.0); Mean Platelet Volume 9.8 fL (7.4-10.4); Platelet Count 135 thou/uL (130-400); RBC Distribution Width 20.6 % (11.5-14.5); Red Blood Cell (RBC) Count 3.39 mill/uL (4.20-5.40); White Blood Cell (WBC) Count 5.3 thou/uL (4.8-10.8)
[2018-08-02 06:06] LABS: Anion Gap 11 mmol/L (10-20); BUN (Urea Nitrogen) 16 mg/dL (9.8-20.1); Calc. Creatinine Clearance 34 mL/min (70-130); Calcium 8.2 mg/dL (7.8-10.44); Carbon Dioxide 22 mmol/L (23-31); Chloride 108 mmol/L (98-107); Estimated GFR-MDRD 36; Glucose 82 mg/dL (83-110); Sodium 138 mmol/L (136-145)
[2018-08-02 06:16] LABS: Potassium 2.9 mmol/L (3.5-5.1)
[2018-08-02] MEDS ORDERED: Potassium Chloride 20 MEQ TAB PO SCH (06:45)
[2018-08-02] MEDS: Sodium Chloride 0.9% 1,000 ML IV SCH (06:51)
[2018-08-02] MEDS: Ondansetron HCl/PF 4 MG/2 ML Vial IVP PRN (06:55)
[2018-08-02] MEDS: Amlodipine 5 MG TAB PO SCH (08:26)
[2018-08-02] MEDS: Amiodarone 200 MG TAB PO SCH (08:27)
[2018-08-02] MEDS: Docusate 100 MG CAP PO SCH ×2 (08:27→20:31)
[2018-08-02] MEDS: Potassium Chloride 20 MEQ TAB PO SCH ×3 (08:27→20:30)
[2018-08-02] MEDS: Magnesium Oxide 400 MG TAB PO SCH ×2 (08:32→20:31)
[2018-08-02] MEDS ORDERED: Prevnar 13-Val Conj/PF 0.5 ML SYRINGE IM ONE (09:00)
[2018-08-02] MEDS: Dronabinol 2.5 MG CAP PO SCH ×2 (10:31→20:31)
[2018-08-02] MEDS: Apixaban 2.5 MG TAB PO SCH ×2 (10:32→20:31)
--- NOTE | 2018-08-02 12:00 | PDOC.PN ---
- Subjective Encounter Start Date: 08/02/18 Encounter Start Time: 10:50 Subjective: feels better, no trouble swallowing or breathing -: erythema is slowly receding, still has swelling over right lat neck and zack - Objective Resuscitation Status: Resuscitation Status FULL:Full Resuscitation MAR Reviewed: Yes Vital Signs & Weight: Vital Signs (12 hours) Temp Pulse Resp BP Pulse Ox 08/02/18 10:51 97.8 F 68 16 129/76 95 08/02/18 08:26 68 08/02/18 08:00 92 L 08/02/18 07:39 98.0 F 68 18 118/64 92 L 08/02/18 04:01 98.0 F 95 18 132/69 92 L 08/02/18 00:20 98.0 F 80 16 116/60 92 L Weight Weight 163 lb I&O: 08/01/18 08/02/18 08/03/18 06:59 06:59 06:59 Intake Total 1017 240 Balance 1017 240 Result Diagrams: 08/02/18 04:35 08/02/18 04:35 Phys Exam - Physical Examination HEENT: PERRLA, sclera anicteric Neck: no JVD has submand, parotid and right lat area swelling with erythema Respiratory: no wheezing, no rales Cardiovascular: RRR, no significant murmur Gastrointestinal: soft, non-tender, positive bowel sounds Musculoskeletal: no edema, pulses present Neurological: non-focal, moves all 4 limbs Psychiatric: normal affect, A&O x 3 Dx/Plan (1) Cellulitis, neck Code(s): L03.221 - CELLULITIS OF NECK Status: Acute (2) Sialadenitis Code(s): K11.20 - SIALOADENITIS, UNSPECIFIED Status: Acute Comment: or parotid, submandibular glands (3) Hypokalemia Code(s): E87.6 - HYPOKALEMIA Status: Acute (4) Colon cancer Code(s): C18.9 - MALIGNANT NEOPLASM OF COLON, UNSPECIFIED Status: Chronic Qualifiers: Colon location: ascending Qualified Code(s): C18.2 - Malignant neoplasm of ascending colon Comment: invasive adeno ca on chemo (5) Atrial fibrillation Code(s): I48.91 - UNSPECIFIED ATRIAL FIBRILLATION Status: Chronic Qualifiers: Atrial fibrillation type: paroxysmal Qualified Code(s): I48.0 - Paroxysmal atrial fibrillation (6) Dyslipidemia Code(s): E78.5 - HYPERLIPIDEMIA, UNSPECIFIED Status: Chronic - Plan on clindamycin and vanc -: await ent opinion in view of immunocompromised state with extensive area -: continue norvasc and eliquis -: gentle iv hydration, encourage po intake (doesn't like ensure too sweat) -: replace potassium, will likely not get chemo scheduled for friday * . Review of Systems - Medications/Allergies Allergies/Adverse Reactions: Allergies Allergy/AdvReac Type Severity Reaction Status Date / Time succinylcholine Allergy Verified 04/30/18 11:15 volatile anesthetic agents Allergy Uncoded 03/23/18 13:05 Medications: Current Medications Acetaminophen (Tylenol) 650 mg PO Q4H PRN PRN Reason: Headache/Fever or Pain Amiodarone HCl (Cordarone) 200 mg PO QAM [facility] Last Admin: 08/02/18 08:27 Dose: 200 mg Amlodipine Besylate (Norvasc) 5 mg PO QAM [facility] Last Admin: 08/02/18 08:26 Dose: 5 mg Apixaban (Eliquis) 2.5 mg PO BID [facility] Last Admin: 08/02/18 10:32 Dose: 2.5 mg Docusate Sodium (Colace) 100 mg PO BID [facility] Last Admin: 08/02/18 08:27 Dose: 100 mg Dronabinol (Marinol) 2.5 mg PO BID [facility] Last Admin: 08/02/18 10:31 Dose: 2.5 mg Famotidine (Pepcid) 20 mg PO QPM [facility] Last Admin: 08/01/18 20:30 Dose: 20 mg Guaifenesin/Dextromethorphan (Robitussin Dm) 15 ml PO Q4H PRN PRN Reason: Cough Sodium Chloride (Normal Saline 0.9%) 1,000 mls @ 70 mls/hr IV .[id number] [facility] Last Admin: 08/02/18 06:51 Dose: 1,000 mls Vancomycin HCl 750 mg/ Sodium (Chloride) 250 mls @ 250 mls/hr IVPB .PENDING LEVEL [facility] Clindamycin Phosphate/Dextrose (600 mg/ Device) 50 mls @ 100 mls/hr IVPB 0100, 0900,1700 [facility] Last Admin: 08/02/18 08:27 Dose: 50 mls Magnesium Oxide (Magnesium Oxide) 400 mg PO BID [facility] Stop: 08/04/18 09:01 Last Admin: 08/02/18 08:32 Dose: 400 mg Melatonin (Melatonin) 6 mg PO HS PRN PRN Reason: Insomnia Last Admin: 08/01/18 22:47 Dose: 6 mg Mirtazapine (Remeron) 30 mg PO HS [facility] Last Admin: 08/01/18 20:30 Dose: 30 mg Miscellaneous Medication (Pharmacy To Dose) 1 each IVPB PRN PRN PRN Reason: . Ondansetron HCl (Zofran) 4 mg IVP Q6H PRN PRN Reason: Nausea/Vomiting Last Admin: 08/02/18 06:55 Dose: 4 mg Potassium Chloride (K-Dur) 40 meq PO Q6H [facility] Stop: 08/03/18 14:01 Last Admin: 08/02/18 08:27 Dose: 40 meq Sertraline HCl (Zoloft) 100 mg PO QAM PRN PRN Reason: Anxiety Throat Lozenges (Cepastat Lozenges) 1 michelle PO Q2H PRN PRN Reason: Sore Throat
[2018-08-02] MEDS ORDERED: Vancomycin HCl 750 MG in Sodium Chloride 0.9% 250 ML 250 ML IVPB SCH (16:00)
[2018-08-02] MEDS: Vancomycin HCl 1 GM in Premix Bag 1 BAG IVPB SCH (16:12)
[2018-08-02] MEDS: Famotidine 20 MG TAB PO SCH (20:31)
[2018-08-02] MEDS: Mirtazapine 30 MG TAB PO SCH (20:31)
--- NOTE | 2018-08-02 21:11 | CON ---
DATE OF CONSULTATION: 08/02/2018 REASON FOR CONSULTATION: Colon cancer. HISTORY OF PRESENT ILLNESS: An 87-year-old female with history of metastatic colon cancer, currently on FOLFOX, Avastin chemotherapy with the last treatment received 07/21/2018, presenting to the hospital with right neck swelling and erythema extending to her chest. The patient was seen [facility] by Dr. Forrest on Friday07/29/2018 for complaint of right neck swelling that started 3 days prior. Neck was tender to the touch, but otherwise there was no erythema. The patient denied fever, chills, sore throat , or dysphagia and no swelling was seen in the mouth. The patient did receive oral ciprofloxacin treatment. However, after she initiated this. Her swelling dramatically worsened and she came to the hospital. She still denies any fevers at home and there were no fevers in the ER. Patient states she did vomit once in the ER and still has some nausea that is improved with medications. She has no appetite. She was started on vancomycin and clindamycin in the hospital. The patient states she feels better today. She does complain of mild diarrhea and mild cough, but denies any other symptoms currently. REVIEW OF SYSTEMS: Ten-point review of systems negative except as per HPI. PAST MEDICAL HISTORY: Colon cancer with liver mets on chemotherapy, atrial fibrillation, hypertension. PAST SURGICAL HISTORY: Right hemicolectomy, ileostomy with reversal, cholecystectomy, hysterectomy, MediPort placement, eye surgery. CURRENT MEDICATIONS: Reviewed. ALLERGIES: SUCCINYLCHOLINE. SOCIAL HISTORY: No smoking, alcohol or drugs. Lives with her grandson. FAMILY HISTORY: Malignant hyperthermia in her mother and possible lymphoma in her father. PHYSICAL EXAMINATION: VITAL SIGNS: Temperature 97.8, pulse 68, respirations 16, O2 saturation 95% on room air, blood pressure 129/76. GENERAL APPEARANCE: In no acute distress, lying comfortably in bed. HEENT: No oral lesions. Large right neck swelling and large right parotid and submandibular glands with tenderness to palpation of her right submandibular area. There is a large area of erythema demarcated along her neck down in a V- shaped pattern around her chest, much more dramatic on the right side, but does extend to the left. CARDIOVASCULAR: S1, S2, regular rate and rhythm. RESPIRATORY: Clear to auscultation bilaterally. ABDOMEN: Soft, nondistended, nontender. EXTREMITIES: No edema. NEUROLOGIC: Nonfocal. PSYCHIATRIC: Awake, alert and oriented x3. LABORATORY DATA: White blood cells 5.3, hemoglobin 9.5, platelets 135, neutrophils 58.3%. Sodium 138, potassium 2.9, chloride 108, carbon dioxide 22, BUN 16, creatinine 1.40, glucose 82. CRP 25.66, magnesium 1.3. IMAGING DATA: CT of the soft tissue of the neck dated 08/01/2018 showed enlargement of the right parotid and submandibular glands with adjacent inflammatory changes, some of the L2 lymph nodes in the right are enlarged. No abnormally loculated fluid collections are seen to suggest abscess formation. Airway is patent, low density lesions in the thyroid gland would be better evaluated with an ultrasound on a nonemergent basis. Small to moderate left pleural effusion is noted. Visualized paranasal sinuses and mastoid air cells are well aerated. ASSESSMENT AND PLAN: An 87-year-old female with metastatic colorectal cancer on FOLFOX and Avastin, presenting with cellulitis of the right neck and parotid gland and submandibular gland swelling. The patient received oral ciprofloxacin outpatient basis with worsening of her symptoms and is currently on vancomycin and clindamycin in the hospital. On the second day of antibiotics, patient's cellulitis does appear to be receding and swelling has improved as per patient and she can now swallow solids and liquids without difficulty. Her white blood cell count is normal and she has no neutropenia. The patient is due for chemotherapy on Friday; however, this will likely need to be postponed given her current infection. Recommend continuing antibiotics and IV hydration. This patient also appears dehydrated. We will follow this patient peripherally. Thank you for this consult. [facility]ITALS[facility]erald
[2018-08-03] MEDS: Clindamycin/D5W 600 MG in Premix Bag 1 BAG IVPB SCH ×3 (01:43→18:33)
[2018-08-03] MEDS: Sodium Chloride 0.9% 1,000 ML IV SCH ×2 (01:45→11:25)
[2018-08-03] MEDS: Docusate 100 MG CAP PO SCH ×2 (08:42→20:35)
[2018-08-03] MEDS: Amlodipine 5 MG TAB PO SCH (08:43)
[2018-08-03] MEDS: Amiodarone 200 MG TAB PO SCH (08:43)
[2018-08-03] MEDS: Potassium Chloride 20 MEQ TAB PO SCH ×2 (08:43→15:05)
[2018-08-03] MEDS: Magnesium Oxide 400 MG TAB PO SCH ×2 (08:43→20:35)
[2018-08-03 08:57] LABS: Anion Gap 12 mmol/L (10-20); BUN (Urea Nitrogen) 12 mg/dL (9.8-20.1); Calc. Creatinine Clearance 34 mL/min (70-130); Calcium 8.5 mg/dL (7.8-10.44); Carbon Dioxide 20 mmol/L (23-31); Chloride 111 mmol/L (98-107); Estimated GFR-MDRD 35; Glucose 82 mg/dL (83-110); Potassium 4.1 mmol/L (3.5-5.1); Sodium 139 mmol/L (136-145)
[2018-08-03] MEDS: Dronabinol 2.5 MG CAP PO SCH ×2 (09:55→20:35)
[2018-08-03] MEDS: Apixaban 2.5 MG TAB PO SCH ×2 (09:55→20:36)
[2018-08-03 09:58] LABS: Band 5 % (5-11); Eosinophils 2 % (0-10); Hemoglobin 10.4 g/dL (12.0-16.0); Hypochromia SLIGHT = 6-15 cells (100X) (0-5/hpf); Lymphocytes 49 % (21-51); MDiff Complete? YES; Mean Corpuscular HGB CONC 30.7 g/dL (32.0-36.0); Mean Corpuscular Hemoglobin 27.7 pg (27.0-31.0); Mean Corpuscular Volume 90.1 fL (78.0-98.0); Mean Platelet Volume 9.6 fL (7.4-10.4); Monocytes 20 % (0-10); Neutrophil 21 % (42-75); PLT Morphology Comment Appears Adequate; Platelet Count 148 thou/uL (130-400); Polychromasia SLIGHT = 2-3 cells (100X) (0-2/hpf); RBC Distribution Width 20.7 % (11.5-14.5); Reactive Lymphocytes 3 % (0-10); Red Blood Cell (RBC) Count 3.75 mill/uL (4.20-5.40); White Blood Cell (WBC) Count 5.5 thou/uL (4.8-10.8)
--- NOTE | 2018-08-03 12:38 | PDOC.PN ---
- Subjective Encounter Start Date: 08/03/18 Encounter Start Time: 10:40 Subjective: no trouble swallowing or sob -: feels better - Objective Resuscitation Status: Resuscitation Status FULL:Full Resuscitation MAR Reviewed: Yes Vital Signs & Weight: Vital Signs (12 hours) Temp Pulse Resp BP Pulse Ox 08/03/18 08:38 97.5 F L 79 18 164/77 H 98 Weight Weight 163 lb I&O: 08/02/18 08/03/18 08/04/18 06:59 06:59 06:59 Intake Total 1016 2019 Balance 1016 2019 Result Diagrams: 08/03/18 08:22 08/03/18 08:23 Phys Exam - Physical Examination HEENT: PERRLA, moist MMs right parotid/mandibular area edema is receding Neck: no JVD, supple Respiratory: no wheezing, no rales Cardiovascular: RRR, no significant murmur Gastrointestinal: soft, non-tender, positive bowel sounds Musculoskeletal: no edema, pulses present Neurological: non-focal, moves all 4 limbs Psychiatric: A&O x 3 Dx/Plan (1) Cellulitis, neck Code(s): L03.221 - CELLULITIS OF NECK Status: Acute (2) Sialadenitis Code(s): K11.20 - SIALOADENITIS, UNSPECIFIED Status: Acute Comment: or parotid, submandibular glands (3) Hypokalemia Code(s): E87.6 - HYPOKALEMIA Status: Resolved (4) Colon cancer Code(s): C18.9 - MALIGNANT NEOPLASM OF COLON, UNSPECIFIED Status: Chronic Qualifiers: Colon location: ascending Qualified Code(s): C18.2 - Malignant neoplasm of ascending colon Comment: invasive adeno ca on chemo (5) Atrial fibrillation Code(s): I48.91 - UNSPECIFIED ATRIAL FIBRILLATION Status: Chronic Qualifiers: Atrial fibrillation type: paroxysmal Qualified Code(s): I48.0 - Paroxysmal atrial fibrillation (6) Dyslipidemia Code(s): E78.5 - HYPERLIPIDEMIA, UNSPECIFIED Status: Chronic - Plan is on clinda, vanc -: amiodarone, norvasc, eliquis -: dc iv fluids -: ambulate as tolerated -: is on folfox and avastin for colon cancer * . Review of Systems - Medications/Allergies Allergies/Adverse Reactions: Allergies Allergy/AdvReac Type Severity Reaction Status Date / Time succinylcholine Allergy Verified 04/30/18 11:15 volatile anesthetic agents Allergy Uncoded 03/23/18 13:05 Medications: Current Medications Acetaminophen (Tylenol) 650 mg PO Q4H PRN PRN Reason: Headache/Fever or Pain Amiodarone HCl (Cordarone) 200 mg PO QAM [facility] Last Admin: 08/03/18 08:43 Dose: 200 mg Amlodipine Besylate (Norvasc) 5 mg PO QAM [facility] Last Admin: 08/03/18 08:43 Dose: 5 mg Apixaban (Eliquis) 2.5 mg PO BID [facility] Last Admin: 08/03/18 09:55 Dose: 2.5 mg Docusate Sodium (Colace) 100 mg PO BID [facility] Last Admin: 08/03/18 08:42 Dose: Not Given Dronabinol (Marinol) 2.5 mg PO BID [facility] Last Admin: 08/03/18 09:55 Dose: 2.5 mg Famotidine (Pepcid) 20 mg PO QPM [facility] Last Admin: 08/02/18 20:31 Dose: 20 mg Guaifenesin/Dextromethorphan (Robitussin Dm) 15 ml PO Q4H PRN PRN Reason: Cough Sodium Chloride (Normal Saline 0.9%) 1,000 mls @ 70 mls/hr IV .[id number] [facility] Last Admin: 08/03/18 11:25 Dose: 1,000 mls Clindamycin Phosphate/Dextrose (600 mg/ Device) 50 mls @ 100 mls/hr IVPB 0100, 0900,1700 [facility] Last Admin: 08/03/18 08:42 Dose: 50 mls Vancomycin HCl 1 gm/ Device 200 mls @ 200 mls/hr IVPB Q24HR@1600 [facility] Last Admin: 08/02/18 16:12 Dose: 200 mls Magnesium Oxide (Magnesium Oxide) 400 mg PO BID [facility] Stop: 08/04/18 09:01 Last Admin: 08/03/18 08:43 Dose: 400 mg Melatonin (Melatonin) 6 mg PO HS PRN PRN Reason: Insomnia Last Admin: 08/01/18 22:47 Dose: 6 mg Mirtazapine (Remeron) 30 mg PO HS [facility] Last Admin: 08/02/18 20:31 Dose: 30 mg Miscellaneous Medication (Pharmacy To Dose) 1 each IVPB PRN PRN PRN Reason: Pharmacy to dose Ondansetron HCl (Zofran) 4 mg IVP Q6H PRN PRN Reason: Nausea/Vomiting Last Admin: 08/02/18 06:55 Dose: 4 mg Potassium Chloride (K-Dur) 40 meq PO 0200,0800,1400,2000 [facility] Stop: 08/03/18 14:01 Last Admin: 08/03/18 08:43 Dose: 40 meq Sertraline HCl (Zoloft) 100 mg PO QAM PRN PRN Reason: Anxiety Throat Lozenges (Cepastat Lozenges) 1 michelle PO Q2H PRN PRN Reason: Sore Throat
[2018-08-03 15:27] LABS: Vancomycin, Trough 12.5 ug/mL
[2018-08-03] MEDS: Vancomycin HCl 1 GM in Premix Bag 1 BAG IVPB SCH (16:22)
[2018-08-03] MEDS: Mirtazapine 30 MG TAB PO SCH (20:35)
[2018-08-03] MEDS: Famotidine 20 MG TAB PO SCH (20:35)
[2018-08-04] MEDS: Clindamycin/D5W 600 MG in Premix Bag 1 BAG IVPB SCH ×3 (01:24→17:42)
[2018-08-04] MEDS: Sodium Chloride 0.9% 1,000 ML IV SCH (01:25)
[2018-08-04 06:01] LABS: Anion Gap 7 mmol/L (10-20); BUN (Urea Nitrogen) 8 mg/dL (9.8-20.1); Calc. Creatinine Clearance 38 mL/min (70-130); Calcium 8.5 mg/dL (7.8-10.44); Carbon Dioxide 24 mmol/L (23-31); Chloride 111 mmol/L (98-107); Estimated GFR-MDRD 40; Glucose 79 mg/dL (83-110); Potassium 4.4 mmol/L (3.5-5.1); Sodium 138 mmol/L (136-145)
[2018-08-04 06:22] LABS: Eosinophils 10 % (0-10); Hemoglobin 9.5 g/dL (12.0-16.0); Lymphocytes 52 % (21-51); MDiff Complete? YES; Mean Corpuscular Hemoglobin 27.7 pg (27.0-31.0); Mean Corpuscular Volume 89.5 fL (78.0-98.0); Mean Platelet Volume 9.9 fL (7.4-10.4); Monocytes 14 % (0-10); Neutrophil 23 % (42-75); Platelet Count 142 thou/uL (130-400); RBC Distribution Width 20.6 % (11.5-14.5); Reactive Lymphocytes 1 % (0-10); Red Blood Cell (RBC) Count 3.43 mill/uL (4.20-5.40); White Blood Cell (WBC) Count 3.3 thou/uL (4.8-10.8)
[2018-08-04] MEDS: Amlodipine 5 MG TAB PO SCH (08:35)
[2018-08-04] MEDS: Apixaban 2.5 MG TAB PO SCH ×2 (08:35→20:31)
[2018-08-04] MEDS: Docusate 100 MG CAP PO SCH ×2 (08:35→20:31)
[2018-08-04] MEDS: Magnesium Oxide 400 MG TAB PO SCH (08:35)
[2018-08-04] MEDS: Amiodarone 200 MG TAB PO SCH (08:35)
[2018-08-04] MEDS: Dronabinol 2.5 MG CAP PO SCH ×2 (09:50→20:31)
--- NOTE | 2018-08-04 12:39 | PDOC.PN ---
- Subjective Encounter Start Date: 08/04/18 Encounter Start Time: 11:15 Subjective: feels better, is eating well now -: has amb well with PT yesterday - Objective Resuscitation Status: Resuscitation Status FULL:Full Resuscitation MAR Reviewed: Yes Vital Signs & Weight: Vital Signs (12 hours) Temp Pulse Resp BP Pulse Ox 08/04/18 08:00 98.1 F 76 16 154/71 H 96 Weight Admit Weight 163 lb Weight 163 lb I&O: 08/03/18 08/04/18 08/05/18 06:59 06:59 06:59 Intake Total 2019 1439 Balance 2019 1439 Result Diagrams: 08/04/18 04:54 08/04/18 04:54 Phys Exam - Physical Examination HEENT: PERRLA, moist MMs right submandibular/parotid swelling is markedly down, erythema is better Neck: no JVD, supple Respiratory: no wheezing, no rales Cardiovascular: RRR, no significant murmur Gastrointestinal: soft, non-tender, positive bowel sounds Musculoskeletal: no edema, pulses present Neurological: non-focal, moves all 4 limbs Psychiatric: normal affect, A&O x 3 Dx/Plan (1) Cellulitis, neck Code(s): L03.221 - CELLULITIS OF NECK Status: Acute (2) Sialadenitis Code(s): K11.20 - SIALOADENITIS, UNSPECIFIED Status: Acute Comment: or parotid, submandibular glands (3) Hypokalemia Code(s): E87.6 - HYPOKALEMIA Status: Resolved (4) Colon cancer Code(s): C18.9 - MALIGNANT NEOPLASM OF COLON, UNSPECIFIED Status: Chronic Qualifiers: Colon location: ascending Qualified Code(s): C18.2 - Malignant neoplasm of ascending colon Comment: invasive adeno ca on chemo (5) Atrial fibrillation Code(s): I48.91 - UNSPECIFIED ATRIAL FIBRILLATION Status: Chronic Qualifiers: Atrial fibrillation type: paroxysmal Qualified Code(s): I48.0 - Paroxysmal atrial fibrillation (6) Dyslipidemia Code(s): E78.5 - HYPERLIPIDEMIA, UNSPECIFIED Status: Chronic - Plan is on clindamycin -: dc vanc, to observe another 24hrs prior to home -: tolerating oral diet well now -: continue eliquis, amiodarone -: dc iv fluids, will need outpt ENT appt, has not consulted so far * . Review of Systems - Medications/Allergies Allergies/Adverse Reactions: Allergies Allergy/AdvReac Type Severity Reaction Status Date / Time succinylcholine Allergy Verified 04/30/18 11:15 volatile anesthetic agents Allergy Uncoded 03/23/18 13:05 Medications: Current Medications Acetaminophen (Tylenol) 650 mg PO Q4H PRN PRN Reason: Headache/Fever or Pain Amiodarone HCl (Cordarone) 200 mg PO QAM [facility] Last Admin: 08/04/18 08:35 Dose: 200 mg Amlodipine Besylate (Norvasc) 5 mg PO QAM [facility] Last Admin: 08/04/18 08:35 Dose: 5 mg Apixaban (Eliquis) 2.5 mg PO BID [facility] Last Admin: 08/04/18 08:35 Dose: 2.5 mg Docusate Sodium (Colace) 100 mg PO BID [facility] Last Admin: 08/04/18 08:35 Dose: Not Given Dronabinol (Marinol) 2.5 mg PO BID [facility] Last Admin: 08/04/18 09:50 Dose: 2.5 mg Famotidine (Pepcid) 20 mg PO QPM [facility] Last Admin: 08/03/18 20:35 Dose: 20 mg Guaifenesin/Dextromethorphan (Robitussin Dm) 15 ml PO Q4H PRN PRN Reason: Cough Clindamycin Phosphate/Dextrose (600 mg/ Device) 50 mls @ 100 mls/hr IVPB 0100, 0900,1700 [facility] Last Admin: 08/04/18 08:35 Dose: 50 mls Loperamide HCl (Imodium) 1 mg PO Q4H PRN PRN Reason: Diarrhea/Loose Stools Melatonin (Melatonin) 6 mg PO HS PRN PRN Reason: Insomnia Last Admin: 08/01/18 22:47 Dose: 6 mg Mirtazapine (Remeron) 30 mg PO HS [facility] Last Admin: 08/03/18 20:35 Dose: 30 mg Ondansetron HCl (Zofran) 4 mg IVP Q6H PRN PRN Reason: Nausea/Vomiting Last Admin: 08/02/18 06:55 Dose: 4 mg Sertraline HCl (Zoloft) 100 mg PO QAM PRN PRN Reason: Anxiety Throat Lozenges (Cepastat Lozenges) 1 michelle PO Q2H PRN PRN Reason: Sore Throat
[2018-08-04] MEDS: Mirtazapine 30 MG TAB PO SCH (20:31)
[2018-08-04] MEDS: Famotidine 20 MG TAB PO SCH (20:31)
[2018-08-05] MEDS: Clindamycin/D5W 600 MG in Premix Bag 1 BAG IVPB SCH ×2 (01:03→08:02)
[2018-08-05 04:48] LABS: Anion Gap 10 mmol/L (10-20); BUN (Urea Nitrogen) 7 mg/dL (9.8-20.1); Calc. Creatinine Clearance 34 mL/min (70-130); Carbon Dioxide 25 mmol/L (23-31); Chloride 109 mmol/L (98-107); Estimated GFR-MDRD 36; Glucose 81 mg/dL (83-110); Potassium 3.9 mmol/L (3.5-5.1); Sodium 140 mmol/L (136-145)
[2018-08-05 06:49] LABS: Band 6 % (5-11); Eosinophils 3 % (0-10); Hemoglobin 9.8 g/dL (12.0-16.0); Lymphocytes 67 % (21-51); MDiff Complete? YES; Mean Corpuscular HGB CONC 31.2 g/dL (32.0-36.0); Mean Corpuscular Hemoglobin 27.8 pg (27.0-31.0); Mean Corpuscular Volume 89.1 fL (78.0-98.0); Mean Platelet Volume 9.7 fL (7.4-10.4); Monocytes 10 % (0-10); Neutrophil 14 % (42-75); Platelet Count 163 thou/uL (130-400); RBC Distribution Width 21.2 % (11.5-14.5); Red Blood Cell (RBC) Count 3.53 mill/uL (4.20-5.40); White Blood Cell (WBC) Count 3.7 thou/uL (4.8-10.8)
[2018-08-05 07:20] VITALS: BP 124/63; TEMP 97.9
[2018-08-05] MEDS: Amlodipine 5 MG TAB PO SCH (08:03)
[2018-08-05] MEDS: Amiodarone 200 MG TAB PO SCH (08:03)
[2018-08-05] MEDS: Docusate 100 MG CAP PO SCH (08:03)
[2018-08-05] MEDS: Apixaban 2.5 MG TAB PO SCH (08:03)
[2018-08-05] MEDS: Dronabinol 2.5 MG CAP PO SCH (10:32)
--- NOTE | 2018-08-05 12:23 | PDOC.PN ---
- Subjective Encounter Start Date: 08/05/18 Encounter Start Time: 07:15 Subjective: feels better, no trouble swallowing or breathing -: swelling has reduced significantly - Objective Resuscitation Status: Resuscitation Status FULL:Full Resuscitation MAR Reviewed: Yes Vital Signs & Weight: Vital Signs (12 hours) Temp Pulse Resp BP Pulse Ox 08/05/18 08:03 74 08/05/18 08:00 95 08/05/18 07:19 97.9 F 74 16 124/63 95 Weight Admit Weight 163 lb Weight 163 lb I&O: 08/04/18 08/05/18 08/06/18 06:59 06:59 06:59 Intake Total 1440 400 240 Balance 1440 400 240 Result Diagrams: 08/05/18 03:47 08/05/18 03:47 Phys Exam - Physical Examination HEENT: PERRLA right parotid area induration+ Neck: no JVD, supple Respiratory: no wheezing, no rales Cardiovascular: RRR, no significant murmur Gastrointestinal: soft, non-tender, positive bowel sounds Musculoskeletal: no edema, pulses present Neurological: non-focal, moves all 4 limbs Psychiatric: normal affect, A&O x 3 Dx/Plan (1) Cellulitis, neck Code(s): L03.221 - CELLULITIS OF NECK Status: Acute (2) Sialadenitis Code(s): K11.20 - SIALOADENITIS, UNSPECIFIED Status: Acute Comment: or parotid, submandibular glands (3) Hypokalemia Code(s): E87.6 - HYPOKALEMIA Status: Resolved (4) Colon cancer Code(s): C18.9 - MALIGNANT NEOPLASM OF COLON, UNSPECIFIED Status: Chronic Qualifiers: Colon location: ascending Qualified Code(s): C18.2 - Malignant neoplasm of ascending colon Comment: invasive adeno ca on chemo (5) Atrial fibrillation Code(s): I48.91 - UNSPECIFIED ATRIAL FIBRILLATION Status: Chronic Qualifiers: Atrial fibrillation type: paroxysmal Qualified Code(s): I48.0 - Paroxysmal atrial fibrillation (6) Dyslipidemia Code(s): E78.5 - HYPERLIPIDEMIA, UNSPECIFIED Status: Chronic - Plan I have set up outpt appt to see Dr.Wright Magallanes tomorrow -: hemostable -: to continue clindamycin -: to f/u with onc as adv * . Review of Systems - Medications/Allergies Allergies/Adverse Reactions: Allergies Allergy/AdvReac Type Severity Reaction Status Date / Time succinylcholine Allergy Verified 04/30/18 11:15 volatile anesthetic agents Allergy Uncoded 03/23/18 13:05 Medications: Current Medications Acetaminophen (Tylenol) 650 mg PO Q4H PRN PRN Reason: Headache/Fever or Pain Amiodarone HCl (Cordarone) 200 mg PO QAM [facility] Last Admin: 08/05/18 08:03 Dose: 200 mg Amlodipine Besylate (Norvasc) 5 mg PO QAM [facility] Last Admin: 08/05/18 08:03 Dose: 5 mg Apixaban (Eliquis) 2.5 mg PO BID [facility] Last Admin: 08/05/18 08:03 Dose: 2.5 mg Docusate Sodium (Colace) 100 mg PO BID [facility] Last Admin: 08/05/18 08:03 Dose: 100 mg Dronabinol (Marinol) 2.5 mg PO BID [facility] Last Admin: 08/05/18 10:32 Dose: 2.5 mg Famotidine (Pepcid) 20 mg PO QPM [facility] Last Admin: 08/04/18 20:31 Dose: 20 mg Guaifenesin/Dextromethorphan (Robitussin Dm) 15 ml PO Q4H PRN PRN Reason: Cough Clindamycin Phosphate/Dextrose (600 mg/ Device) 50 mls @ 100 mls/hr IVPB 0100, 0900,1700 [facility] Last Admin: 08/05/18 08:02 Dose: 50 mls Loperamide HCl (Imodium) 1 mg PO Q4H PRN PRN Reason: Diarrhea/Loose Stools Melatonin (Melatonin) 6 mg PO HS PRN PRN Reason: Insomnia Last Admin: 08/01/18 22:47 Dose: 6 mg Mirtazapine (Remeron) 30 mg PO HS [facility] Last Admin: 08/04/18 20:31 Dose: 30 mg Ondansetron HCl (Zofran) 4 mg IVP Q6H PRN PRN Reason: Nausea/Vomiting Last Admin: 08/02/18 06:55 Dose: 4 mg Sertraline HCl (Zoloft) 100 mg PO QAM PRN PRN Reason: Anxiety Throat Lozenges (Cepastat Lozenges) 1 michelle PO Q2H PRN PRN Reason: Sore Throat
--- NOTE | 2018-08-05 14:24 | DIS ---
DATE OF ADMISSION: 08/01/2018 DATE OF DISCHARGE: 08/05/2018 DISCHARGE DISPOSITION: To home. PRIMARY DISCHARGE DIAGNOSES: Sialadenitis with involvement of parotid gland and submandibular gland. The patient also had cellulitis around the lateral neck and anterior chest due to sialadenitis. SECONDARY DISCHARGE DIAGNOSES: History of colon cancer on chemotherapy, chronic atrial fibrillation and dyslipidemia. PROCEDURES DONE DURING HOSPITALIZATION: The patient had a CT of the soft tissue neck done, which giacomo wed findings suspicious for inflammation/infection involving right parotid and submandibular glands. Chest x-ray done showed no acute infiltrate. Blood cultures x2 no growth. Discharge hemoglobin and hematocrit 10 and 31, platelet count 163, white count of 3.7. Discharge BUN and creatinine is 7 and 1.4. CRP was 25. DISCHARGE MEDICATIONS: Amiodarone 200 mg p.o. daily, Norvasc 5 mg p.o. daily, Marinol 2.5 mg p.o. tw ice daily, fenofibrate 145 mg p.o. daily, Protonix 40 mg p.o. daily, sertraline 100 mg p.o. daily, El iquis 2.5 mg p.o. twice daily, clindamycin 300 mg p.o. 3 times daily for a total of 7 days and Remero n 30 mg p.o. at bedtime. ALLERGIES: SUCCINYLCHOLINE and ANESTHETIC AGENTS. INPATIENT CONSULTS: Dr. Papito Hercules for Hem/Onc. BRIEF COURSE DURING HOSPITALIZATION: Patient initially came to ER with complaints of swelling in her right parotid and submandibular area with erythema. They said this was rapidly spreading to her ant erior neck and chest area. The patient has known history of colon cancer and was on chemotherapy. I n view of her being immunosuppressed and with cellulitis and inflammation of parotid and submandibula r gland, patient was admitted for IV antibiotics. The patient was on clindamycin and vancomycin. Sh mick has responded well to both antibiotics. She needs to continue clindamycin for another week. I hav e set up an appointment with Dr. Elpidio Fontaine, ENT specialist tomorrow at 1:45 p.m. She needs to fo llow up with oncologist as advised. The patient was scheduled for chemo yesterday, but in view of he r infection/inflammation, this has been postponed by Oncology Group. Please see a [id number] docum entation on [facility] for the day of discharge.
== END 2018-08-05 13:20 | disposition home health service (06) | DRG 603 ==
LOC: ERS 11:58 → T4-A 16:10
PROVIDERS: ADMIT Internal Medicine; ATTEND Internal Medicine
DX: L03.221 Cellulitis of neck (principal); C78.7 Secondary malignant neoplasm of liver and intrahepatic bile duct; C18.2 Malignant neoplasm of ascending colon; K11.20 Sialoadenitis, unspecified; I48.2 Chronic atrial fibrillation; E78.5 Hyperlipidemia, unspecified; E87.6 Hypokalemia; Z90.49 Acquired absence of other specified parts of digestive tract
CPT/HCPCS: 36415; 70491; 71045; 80048; 80053; 80202; 83605; 83735; 85025; 85652; 86140; 87040; 90471; 90670; 93005; 96365; 96366; 96367; 96375; G0009; J2405; J2543; J3370; J3480; J3490; J7050; Q0167

== ENCOUNTER 2018-09-17 10:14 | Outpatient (CLI) | payer MEDICARE ==
--- NOTE | 2018-09-17 14:53 | CT ---
CT ABDOMEN NONCONTRAST CT PELVIS NONCONTRAST: Date: 09/17/18 HISTORY: 88-year-old female with C18.4 colon cancer, status post resection in November 2017. Status post revers al of ileostomy in March 2018. Chemotherapy. TECHNIQUE: Because of GFR of 28, no IV contrast was given. Oral contrast was given. COMPARISON: 04/10/18. FINDINGS: The previously demonstrated bilateral small pleural effusions have resolved. Lung bases are now gross ly clear. Multiple hypodense lesions in the liver. The largest is an approximately 4.5 x 4 x 5.5 cm lesion, pr eviously described as being in the anterior segment of the right lobe of the liver, but is actually m ostly in hepatic segments 4a and 4b of the left lobe of the liver (axial images 16-23 of 101, series 2; coronal image 14 of 50, series 4). Density is 27 HU. Margins are irregular and lobular. It has pro bably not significantly changed. The second largest hepatic lesions is a 3 x 2.5 x 2 cm hypodense mas s in hepatic segment 8 of the right lobe of the liver (20 of 101, series 2; 31 of 50, series 4). It h as not significantly increased in size. The left lobe of the liver has a variant anatomy in which it reaches far across to the left upper alicia drant, and wraps itself along the superior aspect of the spleen. There is an approximately 6.0 x 4.5 x 3.5 cm low density lesion in that location. It is uncertain whether it involves hepatic tissue or s plenic tissue. It has not significantly changed. Changes in the superficial soft tissues ventral to the right lower quadrant anterior abdominal wall h ave significantly decreased, consistent with decrease in the edema/hematoma related to previous ileos aneudy reversal. There is currently scar tissue in that location. The ascending colon is surgically abs ent. No small bowel dilation. No retroperitoneal, esteban hepatis, or mesenteric lymphadenopathy. No il iac chain lymphadenopathy. Decompressed urinary bladder. Absent uterus and absent gallbladder. No asc ites. No hydronephrosis. No adrenal mass. Atrophic but otherwise unremarkable pancreas. IMPRESSION: 1. No interval change in the multiple low density hepatic lesions, presumably representing hepatic m etastasis, since April 2018. 2. No interval change in the large lesion at the junction between the far left extension of the left lobe of the liver and the spleen, consistent with metastatic lesion, probably involving hepatic tiss ue rather than splenic tissue. 3. Interval resolution of bilateral small pleural effusions. 4. Status post ileostomy reversal, right partial colectomy, hysterectomy, and cholecystectomy. POS: [facility]
== END 2018-09-17 10:15 | disposition home or self-care (01) ==
LOC: BICCT 10:14
PROVIDERS: ATTEND Internal Medicine Hematology & Oncology
DX: C18.9 Malignant neoplasm of colon, unspecified (principal); D50.0 Iron deficiency anemia secondary to blood loss (chronic); J90 Pleural effusion, not elsewhere classified; Z90.49 Acquired absence of other specified parts of digestive tract; Z90.710 Acquired absence of both cervix and uterus; Z98.890 Other specified postprocedural states
CPT/HCPCS: 74176

== ENCOUNTER 2018-12-18 10:05 | Outpatient (CLI) | payer MEDICARE ==
--- NOTE | 2018-12-18 11:35 | CT ---
CT ABDOMEN AND PELVIS WITHOUT CONTRAST: HISTORY: Cancer with liver mets. COMPARISON: CT abdomen and pelvis 09/17/2018. FINDINGS: Lung bases are clear. No pericardial effusion. No dilated loops of large or small bowel. Mild mucosal thickening of the distal small bowel anastomosis. Hypodensity in the right lobe of the liver hepatic segment 4A and 4B has not significantly grown. Hy podensities of hepatic segment 8 previously measured up to 3.1 cm in greatest dimension, unchanged. Two adjacent hepatic segment 8 hypodensities measure 9 mm and 6 mm in greatest dimension, unchanged. At the hepatic dome, there are multiple small hepatic hypodensities which differences in slice selec tion are also unchanged in size. Hepatic segment 2 hypodensity is unchanged in size. Hypodense mass far left lobe of the liver is unchanged in size. No new hepatic mass is appreciated. No retroperitoneal adenopathy. Postsurgical changes are similar. No hydroureteral nephrosis or nephroureteral lithiasis. 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 No suspicious osteolytic or osteoblastic lesion. IMPRESSION: No evidence for disease progression. Hepatic hypodensities are similar. POS: [facility]
== END 2018-12-18 10:06 | disposition home or self-care (01) ==
LOC: BICCT 10:05
PROVIDERS: ATTEND Internal Medicine Hematology & Oncology
DX: C18.9 Malignant neoplasm of colon, unspecified (principal); C78.7 Secondary malignant neoplasm of liver and intrahepatic bile duct
CPT/HCPCS: 74176